=== PATIENT | male | born 1975 | race Caucasian/White ===

== ENCOUNTER 2023-05-30 12:05 | Observation (INO) | payer OTHER, SELFPAY ==
[2023-05-30] VITALS (35 sets, daily range): BP systolic 134–175; BP diastolic 88–130; PULSE 84–153; RESP 12–32; TEMP 37–37.3; O2SAT 90–99; BMI 32.9; BMI 26.7
--- NOTE | 2023-05-30 12:24 | ECG_ITS ---
The [facility] Test Date: 2023-05-30 Pat Name: JOSE WILL Department: Room: - Gender: Male Patient Support Representative: : 1975 Requested By: [id number] Order Number: [id number] Reading MD: ANN JONES Measurements Intervals [place] Rate: 109 P: 78 DE: 162 QRS: 111 QRSD: 112 T: 10 QT: 364 QTc: 428 Interpretive Statements 1120 Sinus tachycardia [address] depression 5130 Right ventricular hypertrophy 9150 abnormal ECG Electronically Signed On 05-31-2023 7:30:36 EST by ANN JONES
--- NOTE | 2023-05-30 12:24 | XR_ITS ---
The [address] [address] Patient Name: JOSE WILL MRN: [id number] date: 1975 Sex: M Assigned Patient Location: ER Current Patient Location: ER Accession/Order Number: [id number] Exam Date: 05/30/2023 12:54 Report Date: 05/30/2023 13:06 At the request of: JEM GOMEZ Procedure: XR chest 1V EXAM: XR chest 1V HISTORY: tachy COMPARISON: Chest study dated 04/10/2022 TECHNIQUE: AP view of the chest was obtained with portable technique at 12:51 PM. FINDINGS: Heart and mediastinal contours are unremarkable in appearance. No acute infiltrate or consolidations are seen. No obvious pneumothorax. Slight convexity of the dorsal spine to the right. XR/XR chest 1V IMPRESSION: No acute process seen in the chest. Electronically authenticated by: OZZIE FRANCIS Date: 05/30/2023 13:06
[2023-05-30] MEDS: ONDANSETRON PF 4 MG/2 ML VIAL IV ×2 (12:35→16:45)
[2023-05-30] MEDS: LACTATED RINGER'S SOLUTION 1,000 ML 999 ML IV (12:35)
[2023-05-30] MEDS: LORAZEPAM 2 MG/ML 1 ML VIAL 1 MG IV (12:38)
[2023-05-30 12:39] LABS: Hematocrit 51.6 % (42.0-54.0); Hemoglobin 18.7 g/dL (14.0-18.0); Mean Corpuscular HGB Conc 36.2 g/dL (29.9-35.2); Mean Corpuscular Hemoglobin 31.5 pg (25.9-34.0); Mean Corpuscular Volume 86.9 fL (80.0-94.0); Mean Platelet Volume 11.4 fL (9.5-13.5); Platelet Count 577 10^3/uL (150-450); Red Blood Count 5.94 10^6/uL (4.70-6.10); Red Cell Distribution Width 11.8 % (11.0-15.0); White Blood Count 25.8 10^3/uL (4.0-11.0)
--- NOTE | 2023-05-30 12:40 | ED_ITS ---
HPI - General Adult General Chief complaint: Weakness Stated complaint: WEAKNESS Time Seen by Provider: 05/30/23 12:23 Source: patient Mode of arrival: walk-in Limitations: no limitations History of Present Illness HPI narrative: Patient is a 48-year-old male who is presenting to the ER with multiple complaints. Patient states she has had nausea and vomiting for the past 3 days. Patient had 1 episode of diarrhea. Patient has elevated heart rate, blood pressure was elevated as well. Bilateral manual blood pressures were done, patient's blood pressure is elevated. Patient has not taken any of his medication in the last 3 days secondary to nausea and vomiting. Patient can keep some fluids in the last 3 days but not much. After HPI and physical exam was performed, I was asking patient is social history. Patient has never smoked cigarettes, patient smokes marijuana occasionally. Patient does have a history of alcohol dependence. Patient says he went on a gray Friday and Friday secondary to arguing with his girlfriend who is at bedside and upset. Patient stopped drinking completely Friday and today. I then asked the patient if he is drink excessively for the last several weeks or months and patient and his girlfriend at bedside said no. Patient has been in rehab before, patient has done AA meetings. Patient does take Xarelto, he has a history of A-fib that comes and goes. [facility] are at the [facility], patient has not had any of his medications in the past 3 days. Patient takes a rate limiting medication, lisinopril, and also a cholesterol medication. Patient's had yellowish-greenish emesis. Patient had 1 episode of black emesis, this was after taking Pepto- Bismol. Patient has no coffee-ground emesis, no significant melena. All systems are negative except as noted/marked. All systems reviewed and otherwise negative. Nurses note and vital signs reviewed and patient is not hypoxic. General: The patient appears in mild distress with increased heart rate, increased respiratory rate, appearing slightly anxious. Girlfriend at bedside.. Patient is resting uncomfortably on cart, moving around a few times trying to get comfortable position. Patient does not smell of alcohol. Patient is not toxic, lethargic, or listless Skin: Warm, dry, no pallor noted. There is no rash noted. No petechiae, purpura. Head: Normocephalic, atraumatic Eye: Normal conjunctiva, no drainage, EOMI. PERRL Ears, Nose, Mouth, and Throat: oral mucosa is moist. Nares patent. Mouth without vesicles. Cardiovascular: Tachycardic regular Rate and Rhythm, no murmur, gallop, rub Respiratory: Patient is in mild respiratory distress with intermittent hyperventilating, no accessory muscle use, lungs are clear to auscultation, no wheezing, rales or rhonchi Back: non-tender, no CVA tenderness bilaterally to percussion. No CT LS midline pain GI: No midepigastric tenderness to palpation, otherwise no tenderness to palpation, no masses appreciated. No rebound, guarding, or rigidity noted. No distention Musculoskeletal: Patient has full range of motion of all of the extremities, no motor, sensory, or focal neurological deficits Neurological: A&O x4, normal speech Psychiatric: Cooperative, admittedly mildly anxious, intermittent hyperventilating. Not suicidal homicidal. Related Data Home Medications Medication Instructions Recorded Confirmed atorvastatin 10 mg tablet 10 mg PO DAILY 05/30/23 05/30/23 fluoxetine 20 mg capsule 20 mg PO DAILY 05/30/23 05/30/23 hydroxyzine HCl 10 mg tablet 10 mg PO .EVERY 12 HOURS 05/30/23 05/30/23 lisinopril 5 mg tablet 5 mg PO DAILY 05/30/23 05/30/23 omeprazole 40 mg capsule,delayed 40 mg PO DAILY 05/30/23 05/30/23 release rivaroxaban 20 mg tablet (Xarelto) 20 mg PO DAILY 05/30/23 05/30/23 Allergies Allergy/AdvReac Type Severity Reaction Status Date / Time No Known Drug Allergies Allergy Verified 05/30/23 12:20 [facility] Medical History (Updated 05/30/23 @ 16:16 by Lamont Salcedo MD) Atrial fibrillation ?I48.91 - Unspecified atrial fibrillation (ICD-10) Social History (Updated 05/30/23 @ 19:14 by Carlie Cabrales) Smoking status: Never smoker Non-prescribed substance use: cannabis (any form) Highest level of school completed/degree received: Associate degree: academic program Exam Constitutional Vital Signs, click to edit/add: Last Vital Signs Temp 99.1 F 05/30/23 17:25 Pulse 124 H 05/30/23 17:44 Resp 18 05/30/23 17:25 BP 156/104 H 05/30/23 17:25 Pulse Ox 97 05/30/23 17:25 O2 Del Method Room Air 05/30/23 17:25 O2 Flow Rate 2 05/30/23 13:52 Course Vital Signs Vital signs: Vital Signs Pulse Rate 153 H 05/30/23 12:11 Respiratory Rate 32 H 05/30/23 12:11 Blood Pressure 160/130 H 05/30/23 12:11 Pulse Oximetry 95 05/30/23 12:11 Oxygen Delivery Method Room Air 05/30/23 12:11 Temperature 99.1 F 05/30/23 17:25 Pulse Rate 124 H 05/30/23 17:44 Respiratory Rate 18 05/30/23 17:25 Blood Pressure 156/104 H 05/30/23 17:25 Pulse Oximetry 97 05/30/23 17:25 Oxygen Delivery Method Room Air 05/30/23 17:25 Oxygen Delivery Flow Rate 2 05/30/23 13:52 Medical Decision Making MDM Narrative Medical decision making narrative: At the end of performing HPI and physical exam, it was noted that patient drink at least a case of beer a day on Friday and Friday secondary to history of alcohol dependence/abuse, fighting with his girlfriend. Patient was not suicidal or homicidal. Patient stopped drinking on Friday. Patient believes that some of his symptoms are secondary to his excessive alcohol use on Friday or Friday. Patient wants to check into AA meetings again and get back into her rehabilitation. Patient and his girlfriend both agree he has not had excessive alcohol use in the past several weeks to months, he had 1 episode of shakes or tremors many years ago, he is never had a seizure from withdrawal 1320 I was notified by Gaby CISNEROS patient's abnormal labs with lactic of 6.3, troponin 124, been atretic peptide 3272. We will be repeating an EKG and also repeating troponin at 2:00 PM. Patient's heart rate has improved into the low 100s after initial liter of IV fluids and IV Ativan. 1335 Patient has been updated on white blood cell count of 25, pH of 7.64, CK of 8080, lactic acid 6, troponin 124, BNP 3273. We are redrawing a second troponin now. [facility] been [facility] the [facility]. Patient did have nuclear medicine stress test and echocardiogram 2 years ago that showed no significant findings. Patient did have a cardiac cath back in approximately that showed no blockages. Patient does not have a automatic pinsetter adjuster. All his physicians are in the [facility]. Patient does take Xarelto, he has not had his Xarelto in 3 days. We are performing second IV, starting antibiotics prophylactically, patient is having a second troponin drawn at this time and then we will make disposition once the results of second troponin come back. 1350 we are calling the [facility] to see if they have beds available for transfer. Patient will be started on antibiotics prophylactically. [employer] Post[employer] Research Associate spoke to an [facility] individual, patient will have his case reviewed and they will call us back. 1630 patient's case was discussed with Dr Denise. Patient is troponin improved from 1 24-1 08. Patient lactic acid improved from 6.3-3.8. We are adding a lipase to patient's lab work as well, that was not ordered initially with sepsis protocol. Dr. Denise is accepting of patient's admission. Patient may have been tachycardic for several days along with the intractable nausea and vomiting. Dr Denise is aware of his binge drinking for 2 days earlier this we ek, aware that he has not had his medication for the past 3 days secondary intractable nausea or vomiting. Patient and his girlfriend at bedside think that patient's multiple electrolyte abnormalities are secondary to the alcohol intake for 2 days at the beginning of the week. Patient is thankful to be admitted to the [facility]. Patient feels significantly better after 2 L of IV fluid and has been antibiotic initiated as well. No questions at discharge, patient's blood pressure has improved, last blood pressure was 145/88, heart rate is 106, respiratory rate is significantly improved, is not hyperventilating either. 1600 [facility], we have not received any phone call returned from the [facility]. The [facility] stated that patient is back on clinical review, and they understand that he will be admitted to [facility] and agree. [facility] never called back to discuss patient's admission, patient will be admitted to [facility] with patient and agrees to. Critical care time 35 minutes exclusive from separate billable procedures that were performed. The following was considered in the determination of critical care but not limited to the level of medical decision making, intensive cardiac and/or respiratory monitoring, frequent vital sign monitoring, evaluation of laboratory studies, evaluation of radiographic studies, oxygen monitoring, and constant monitoring and speaking to family at bedside Lab Data Labs: Lab Results 05/30/23 05/30/23 05/30/23 Range/Units 12:15 12:20 12:45 WBC 25.8 H (4.0-11.0) 10^3/uL RBC 5.94 (4.70-6.10) 10^6/uL Hgb 18.7 H (14.0-18.0) g/dL Hct 51.6 (42.0-54.0) % MCV 86.9 (80.0-94.0) fL MCH 31.5 (25.9-34.0) pg MCHC 36.2 H (29.9-35.2) g/dL RDW 11.8 (11.0-15.0) % Plt Count 577 H (150-450) 10^3/uL MPV 11.4 (9.5-13.5) fL Seg Neuts % (Manual) 83.0 Band Neutrophils % 4.0 (0-5) % Lymphocytes % (Manual) 8.0 L (20.5-60.0) % Monocytes % (Manual) 5.0 (1.7-12.0) % Eosinophils % (Manual) 0.0 L (0.9-7.0) % Basophils % (Manual) 0.0 L (0.2-2.0) % Neutrophils # (Manual) 21.41 H (1.4-6.5) 10^3/uL Band Neutrophils # 1.0 H (0.0-0.3) 10^3/uL Lymphocytes # (Manual) 2.06 (1.20-3.80) 10^3/uL Monocytes # (Manual) 1.29 H (0.30-0.80) 10^3/uL Eosinophils # (Manual) 0.00 (0.00-0.70) 10^3/uL Basophils # (Manual) 0.00 (0.00-0.10) 10^3/uL PT 10.5 (9.0-11.6) sec INR 0.99 VBG pH 7.641 H (7.330-7.430) VBG pCO2 19.7 L (40.0-52.0) mmHg Sodium 130 L (136-145) mmol/L Potassium 3.9 (3.5-5.1) mmol/L Chloride 86 L (98-107) mmol/L Carbon Dioxide 21.2 (21.0-32.0) mmol/L Anion Gap 26.7 BUN 40.0 H (7.0-18.0) mg/dL Creatinine 3.88 H (0.70-1.30) mg/dL Est GFR ( Amer) 20 L (>=60) Est GFR (Non-Af Amer) 17 L (>=60) BUN/Creatinine Ratio 10.3 Glucose 248 H (74-106) mg/dL Lactate 6.3 H* (0.4-2.0) mmol/L Calcium 10.7 H (8.5-10.1) mg/dL Magnesium 1.5 L (1.8-2.4) mg/dL Total Bilirubin 2.3 H (0.2-1.0) mg/dL AST 44 H (15-37) U/L ALT 31 (16-63) U/L Alkaline Phosphatase 98 (46-116) U/L Total Creatine Kinase 880 H* (39-308) U/L Troponin I High Sens 124.7 H* (4.0-76.1) pg/mL NT-Pro-B Natriuret Pep 3272.0 H* (<=900.0) pg/mL Total Protein 9.8 H (6.4-8.2) g/dL Albumin 5.4 H (3.4-5.0) g/dL Globulin 4.4 g/dL Albumin/Globulin Ratio 1.2 Lipase (16.0-77.0) U/L Procalcitonin 0.14 (0.00-0.50) ng/mL Influenza Type A Ag Negative Influenza Type B Ag Negative 05/30/23 05/30/23 Range/Units 13:37 14:17 WBC (4.0-11.0) 10^3/uL RBC (4.70-6.10) 10^6/uL Hgb (14.0-18.0) g/dL Hct (42.0-54.0) % MCV (80.0-94.0) fL MCH (25.9-34.0) pg MCHC (29.9-35.2) g/dL RDW (11.0-15.0) % Plt Count (150-450) 10^3/uL MPV (9.5-13.5) fL Seg Neuts % (Manual) Band Neutrophils % (0-5) % Lymphocytes % (Manual) (20.5-60.0) % Monocytes % (Manual) (1.7-12.0) % Eosinophils % (Manual) (0.9-7.0) % Basophils % (Manual) (0.2-2.0) % Neutrophils # (Manual) (1.4-6.5) 10^3/uL Band Neutrophils # (0.0-0.3) 10^3/uL Lymphocytes # (Manual) (1.20-3.80) 10^3/uL Monocytes # (Manual) (0.30-0.80) 10^3/uL Eosinophils # (Manual) (0.00-0.70) 10^3/uL Basophils # (Manual) (0.00-0.10) 10^3/uL PT (9.0-11.6) sec INR VBG pH (7.330-7.430) VBG pCO2 (40.0-52.0) mmHg Sodium (136-145) mmol/L Potassium (3.5-5.1) mmol/L Chloride (98-107) mmol/L Carbon Dioxide (21.0-32.0) mmol/L Anion Gap BUN (7.0-18.0) mg/dL Creatinine (0.70-1.30) mg/dL Est GFR ( Amer) (>=60) Est GFR (Non-Af Amer) (>=60) BUN/Creatinine Ratio Glucose (74-106) mg/dL Lactate 3.8 H* 2.3 H* (0.4-2.0) mmol/L Calcium (8.5-10.1) mg/dL Magnesium (1.8-2.4) mg/dL Total Bilirubin (0.2-1.0) mg/dL AST (15-37) U/L ALT (16-63) U/L Alkaline Phosphatase (46-116) U/L Total Creatine Kinase (39-308) U/L Troponin I High Sens 108.2 H* (4.0-76.1) pg/mL NT-Pro-B Natriuret Pep (<=900.0) pg/mL Total Protein (6.4-8.2) g/dL Albumin (3.4-5.0) g/dL Globulin g/dL Albumin/Globulin Ratio Lipase 22.0 (16.0-77.0) U/L Procalcitonin (0.00-0.50) ng/mL Influenza Type A Ag Influenza Type B Ag ECG Data Attestation: I personally reviewed and interpreted this ECG as follows: (EKG interpretation. Rapid tachycardic heart rate, 144. Normal axis deviation. Artifact noted. QTc of 379. EKG reading TN interval of 148.) Interpretation: 1324 EKG #2. Sinus tachycardia at 109. Normal axis deviation. No acute ST elevation, no acute ectopy. QTc of 428. Discharge Plan Discharge Chief Complaint: Weakness Clinical Impression: Leukocytosis, Dehydration, Nausea & vomiting, Hyperventilation, Acidosis, lactic, Alcohol abuse Patient Disposition: Admitted As Inpatient Time of Disposition Decision: 16:16 Condition: Fair Discharge Date/Time: 05/30/23 16:53
[2023-05-30 12:55] LABS: PCO2 VBG 19.7 mmHg (40.0-52.0); pH VBG 7.641 (7.330-7.430)
[2023-05-30 13:06] LABS: Lymphocytes Absolute Manual 2.06 10^3/uL (1.20-3.80); Monocytes Absolute Manual 1.29 10^3/uL (0.30-0.80); Segmented Neut Absolute Manual 21.41 10^3/uL (1.4-6.5)
[2023-05-30 13:10] LABS: INR 0.99; Prothrombin Time 10.5 sec (9.0-11.6)
[2023-05-30 13:17] LABS: Alanine Aminotransferase 31 U/L (16-63); Albumin Globulin Ratio 1.2; Albumin Level 5.4 g/dL (3.4-5.0); Alkaline Phosphatase 98 U/L (46-116); Anion Gap 26.7; Aspartate Amino Transferase 44 U/L (15-37); BUN Creatinine Ratio 10.3; Bilirubin Total 2.3 mg/dL (0.2-1.0); Calcium 10.7 mg/dL (8.5-10.1); Carbon Dioxide 21.2 mmol/L (21.0-32.0); Chloride 86 mmol/L (98-107); Estimated GFR (African America 20 (>=60); Estimated GFR (Non-African Ame 17 (>=60); Globulin 4.4 g/dL; Glucose 248 mg/dL (74-106); Potassium 3.9 mmol/L (3.5-5.1); Sodium 130 mmol/L (136-145); Total Protein 9.8 g/dL (6.4-8.2)
[2023-05-30 13:21] LABS: Lactate/Lactic Acid 6.3 mmol/L (0.4-2.0); Troponin I High Sensitivity 124.7 pg/mL (4.0-76.1)
--- NOTE | 2023-05-30 13:21 | ECG_ITS ---
The [facility] Test Date: 2023-05-30 Pat Name: JOSE WILL Department: Room: - Gender: Male Classroom Monitor: : 1975 Requested By: [id number] Order Number: [id number] Reading MD: ANN JONES Measurements Intervals [place] Rate: 144 P: 247 MI: 148 QRS: 84 QRSD: 100 T: 77 QT: 296 QTc: 379 Interpretive Statements 1220 Rapid atrial rhythm [address] depression [address] & [place] abnormality 9150 abnormal ECG Electronically Signed On 05-31-2023 7:29:24 EST by ANN JONES
[2023-05-30 13:24] LABS: PROCALCITONIN 0.14 ng/mL (0.00-0.50)
[2023-05-30 13:27] LABS: Creatine Kinase 880 U/L (39-308); Magnesium 1.5 mg/dL (1.8-2.4)
[2023-05-30 13:39] LABS: Influenza Virus A Antigen Negative; Influenza Virus B Antigen Negative; Internal Control Within Normal Limits
[2023-05-30] MEDS: ASPIRIN 81 MG TAB.CHEW 162 MG PO (13:40)
[2023-05-30] MEDS: MULTIVIT INFUSN,ADULT 4,VIT K 10 ML, FOLIC ACID 1 MG, THIAMINE HCL 100 MG in DEXTROSE 5... 250 ML IV (13:47)
[2023-05-30] MEDS: LACTATED RINGER'S SOLUTION 1,000 ML 1000 ML IV ×2 (13:47→15:51)
[2023-05-30] MEDS: VANCOMYCIN HCL 1,750 MG in 0.9 % SODIUM CHLORIDE 500 ML 250 MG IV (14:47)
[2023-05-30 15:11] LABS: Lactate/Lactic Acid 3.8 mmol/L (0.4-2.0)
[2023-05-30 15:12] LABS: Troponin I High Sensitivity 108.2 pg/mL (4.0-76.1)
[2023-05-30 16:54] LABS: Lactate/Lactic Acid 2.3 mmol/L (0.4-2.0)
--- NOTE | 2023-05-30 17:21 | CT_ITS ---
The [address] [address] Patient Name: JOSE WILL MRN: [id number] date: 1975 Sex: M Assigned Patient Location: MS Current Patient Location: MS Accession/Order Number: [id number] Exam Date: 05/30/2023 17:57 Report Date: 05/30/2023 19:11 At the request of: FABY VALERO Procedure: CT abdomen pelvis wo con EXAM: CT abdomen pelvis wo con HISTORY: Emesis, diarrhea, elevated lactate COMPARISON: None. TECHNIQUE: Axial CT imaging was performed through the abdomen and pelvis without intravenous contrast. Multiplanar reformats were performed. Dose reduction techniques were achieved by using automated exposure control and/or adjustment of mA and/or kV according to patient size and/or use of iterative reconstruction technique. FINDINGS: Lung bases: Lung bases are clear. No pleural effusion. GI upper: Small hiatal hernia. Liver: Normal size and contour. Gallbladder: No significant abnormality. No cholelithiasis. Biliary system: No intra or extrahepatic biliary ductal dilatation. Spleen: Normal size. Pancreas: Unremarkable. Adrenal glands: Normal adrenal glands. Kidneys/ureters: Normal contours. No hydronephrosis. No nephrolithiasis or ureterolithiasis. Vessels: No aneurysm. Lymph Nodes: No lymphadenopathy. Small bowel: No wall thickening or dilatation. Colon: No wall thickening or dilatation. Appendix: Appendix is identified with normal appearance. Peritoneal cavity: No free fluid or pneumoperitoneum. Lower : Unremarkable. Bones: No acute bony abnormality. Soft tissues: No acute finding. Additional findings: None. CT/CT abdomen pelvis wo con IMPRESSION: Unremarkable noncontrast CT of the abdomen and pelvis. No acute abnormality. Electronically authenticated by: NAUN BAILEY Date: 05/30/2023 19:11
[2023-05-30] MEDS: PANTOPRAZOLE SODIUM 40 MG VIAL IV (18:17)
[2023-05-30] MEDS: PIPERACILLIN SODIUM/TAZOBACTAM 4.5 GM in 0.9 % SODIUM CHLORIDE 50 ML IV (18:17)
[2023-05-30] MEDS: LACTATED RINGER'S SOLUTION 1,000 ML 125 ML IV (18:17)
[2023-05-30] MEDS: LORAZEPAM 1 MG TABLET PO (18:17)
[2023-05-30] MEDS: ATORVASTATIN CALCIUM 10 MG TABLET PO (21:55)
[2023-05-31] VITALS (11 sets, daily range): BP systolic 137–159; BP diastolic 75–95; PULSE 87–111; RESP 18; TEMP 36.6–37; O2SAT 95–101
[2023-05-31] MEDS: LACTATED RINGER'S SOLUTION 1,000 ML 125 ML IV (02:37)
[2023-05-31 05:37] LABS: Bilirubin Urine NEGATIVE (NEGATIVE); Blood Urine NEGATIVE (NEGATIVE); Clarity Urine CLEAR (CLEAR); Color Urine LT. YELLOW (YELLOW); Glucose Urine UA NEGATIVE (NEGATIVE); Ketones Urine NEGATIVE (NEGATIVE); Leukocyte Esterase Urine NEGATIVE (NEGATIVE); Nitrite Urine NEGATIVE (NEGATIVE); Protein Urine NEGATIVE (NEG/TRACE); Specific Gravity Urine 1.015 (1.005-1.025); Urobilinogen Urine 0.2 EU/dL (0.2-1.0); pH Urine 6.5 (5.0-9.0)
[2023-05-31 05:39] LABS: Basophils Absolute Auto 0.1 10^3/uL (0.0-0.1); Basophils Percent Auto 0.5 % (0.2-2.0); Eosinophils Absolute Auto 0.1 10^3/uL (0.0-0.7); Eosinophils Percent Auto 0.5 % (0.9-7.0); Hematocrit 45.1 % (42.0-54.0); Hemoglobin 15.3 g/dL (14.0-18.0); Immature Granulocytes Abs Auto 0.13 10^3/uL (0.00-0.03); Immature Granulocytes Pct Auto 0.8 % (0.0-0.5); Lymphocytes Absolute Auto 1.4 10^3/uL (1.2-3.8); Lymphocytes Percent Auto 8.7 % (20.5-60.0); Mean Corpuscular HGB Conc 33.9 g/dL (29.9-35.2); Mean Corpuscular Hemoglobin 31.7 pg (25.9-34.0); Mean Corpuscular Volume 93.4 fL (80.0-94.0); Mean Platelet Volume 11.3 fL (9.5-13.5); Monocytes Absolute Auto 1.2 10^3/uL (0.3-0.8); Monocytes Percent Auto 7.5 % (1.7-12.0); Neutrophils Absolute Auto 12.7 10^3/uL (1.4-6.5); Platelet Count 285 10^3/uL (150-450); Red Blood Count 4.83 10^6/uL (4.70-6.10); White Blood Count 15.4 10^3/uL (4.0-11.0)
[2023-05-31 05:43] LABS: Urine Microscopic Indicated NO
[2023-05-31] MEDS: PANTOPRAZOLE SODIUM 40 MG VIAL IV (05:44)
[2023-05-31 06:01] LABS: Alanine Aminotransferase 32 U/L (16-63); Albumin Globulin Ratio 1.1; Albumin Level 3.7 g/dL (3.4-5.0); Alkaline Phosphatase 64 U/L (46-116); Anion Gap 11.2; Aspartate Amino Transferase 48 U/L (15-37); Bilirubin Total 1.4 mg/dL (0.2-1.0); Calcium 8.5 mg/dL (8.5-10.1); Carbon Dioxide 30.2 mmol/L (21.0-32.0); Chloride 96 mmol/L (98-107); Estimated GFR (African America >60 (>=60); Estimated GFR (Non-African Ame 51 (>=60); Globulin 3.3 g/dL; Glucose 108 mg/dL (74-106); Potassium 3.4 mmol/L (3.5-5.1); Sodium 134 mmol/L (136-145)
[2023-05-31 06:16] LABS: Creatine Kinase 654 U/L (39-308)
[2023-05-31] MEDS: LISINOPRIL 5 MG TABLET PO (09:26)
[2023-05-31] MEDS: FLUOXETINE HCL 20 MG CAPSULE PO (09:26)
[2023-05-31] MEDS: ONDANSETRON PF 4 MG/2 ML VIAL IV (09:50)
[2023-05-31] MEDS: CALCIUM CARBONATE 500 MG (200MG ELEMENTAL) TAB CHEW PO (09:50)
[2023-05-31 10:42] LABS: SARS-CoV-2 Ag NEGATIVE (NEGATIVE)
[2023-05-31] MEDS: HYDROXYZINE HCL 10 MG TABLET PO (10:56)
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
--- OUTSIDE RECORDS SUMMARY | 2023-06-02 09:01 | XMS_ITS | CCD ---
Author Name Unknown Address [address] [place] [address] [place] [address] Organization [facility] Results Test Name Value Interpretation Reference Range Facility Coding Summaryon 05-01-2021 Coding Summary HTMLBase 64 TfbluknwGTl9zVx+PGhlYW Q+FM4IZQQqR72qpLSolG4M P8vDXL9ZMFPIEEJHEW3DVA 5yrII3JVqdX8WtwsLw OoivlYKfHZ13IBv3HNV8tR jnIBvldX1cmACmG6i0RfYt RN62eA15VCxbPPToYuR2Bk ZpbjsgbWFy I6xeDfPjxKGlCyb+PHRhYm xlIHdpZHRoPScxMDAlJyBz kOsgRI7gDr9xARXmLYLvuK xhcHNlOiBj v7taUBMpEOqpOD4udKkxQ1 RjdZI9MIUvs0d2Uk52cXJ+ GHIrCRX8cBruDRkql771Ct Ihn1qiTGT7 wLFlYWwkXAF6M56bt7J2QP DzLUTeFMR9tYC5bL7tbLcx rjjwA5TkxZUfWtF1FCN3eA VbqH1diBqe fmxsxN2hNwo+T40VER5OII MMCZ3RHmw0B1ClWqctlQK+ YX22WXSsJY47iQYamFOxq5 gklWz0LvMm LLIlINK9pUuxMEris5TzVY LpK05azOGdo2G7AJHngHis lKEvQkHbiJF3oA7fURaxrq xef4oaavnr Uuldn7abct14tZ02C86ePR kpGUGfNPA7ZLTtJSQnyAqa kv4pqF8sXg9+QIcjm1xrv8 hhpFx3KnYv RRIdxeNscUdyZOF1x6QjRp 19G9VggRefp8JmKyz2ks60 cINuk7O5bSR6GOsrJZBgsM 4eIQvmGrB2 RHJjLlGrmC49kRGeNSpiFz 5jvBiwnWtwTG3aPYFcgnkz UTCcmU9rSJXppEDoeGumIP 4wNTBpbjtm o276KqOsZPU2ILKbvEDpZ3 VrjP1jNrUxOJLcDCNlZ9Qb fVRqTEjeJ016CUbaGpE2QP LhmoRoP1Cl RFNcaSolLwP5o6I1Bi0Sg5 WrhoqvPGI4ABluTAGyYgF3 PfNrIzN1N4MqPnm9GNMkrK okLH0zV8Uk RBJudbulujqbuWE7CPIaXN YebS00iULyWLjvWj7to4B4 i086ZPCzXQXtvQ36Rq1neV ogMTBwdCBU aX6xeiqat1wzdfggXrGeCI WhMRc1DJa7THEokRupWzYx PEZ5KqV3JNW8mIIajW5vcP itncehgJ3q Oyc+C78jgN3zDAU8HLV6mg sdWLNbgpHuUV71OA08T8Tt PjwvdGFibGU+PGRpdiBzdH btIQ8nVoXg n6fkd8RsETnrC3QdUYGlXC uhEbz9JYJkTWR2aYO0pM5e CEQoRHgpm0V8eIU8O8Xhag Zxii6mb2wc WGJkQFzhK31etHYsg1C1QQ OvkSI2HCRcqVghKzMbkS98 Oyc+CYBofYxeh0ZlShfbc8 zlr1lilMu0 WmUyZSJaduMecGlxOHE5e3 FcWd52K92qIRavJOXlWZEa SHXbNPRybNxrhg6enQ0yPp 8+PGNvbCB3 iVJ2rG5tAMWpCvH8UOdyH7 80DpAwlNFmPgaiv9xbd7et jDh4JsCxDXUbwmFwpUpwXT R1p4MdEx88 F04eBPvgKEVvLGAyUTXfUQ BaiJdnpt9heX8iXs5+PC9j q7mnow87dC51eLG+PHRkIH L0hXyyFVjv CBCqoJ9xZNttEgJ7OSJuDq IwaN58aZBuJVshNy7nzJhm lMpyZZ6pJKDhfciiu866Mq Scq9zxKPJa qJPxYWkwSJT1N77oe1F9MQ RgFDDwZDX4fLM9fK6unJdz bjogbGVmdDsgdmVydGljYW dsDHcgA907 IHRvcDsnPlBhdGllbnQgTm PeEVo3L2IcGwt4QBArpTvh NT8coAKxZFqkVj9vjXkztP zwQL3aOCSl skopa226ErUsk0pvTZEavP BqFMqoIIO8J52qy1H7YATk BZCcGFV9zSU3jT9ewMwnjq ogbGVmdDsg xtXheTebPClsBDpnS522QV RvcDsnPkJpcnRoIERhdGU6 DM11LS91tSXjk8N3aHE5Y5 BhZGRpbmct armmyZS3CSSrCMJrbQ08Ai 3byOyuCe8qLDLmDPZ7PYAm dXByA0TrzU0qOxBgGOGwZE CjX2AjqGSw MFyoE628VGsyMhY1QACein CiP0AgYGKqeHivDiM9l8C0 Yj7JC0F6KA91ZU85mXTju3 X5dTX7J4Lu CYOqppmrbbeuiGG0LIZoYH IvbY94Uu9olNnfVi1vEUUs BHI6FNRsmYYoP9RmwI2hCa AjMDAwMDAw E9ChgRLbLTdiN090OYleHz Y0VQFsxdYgB4MgORCzvPni HoR8i5I8Oa8MBEf0FC34BJ 92gFGvw9J2 eXL6R6KqBTZmqbpwxldsqB Z6HATqQKExwZ34Sg6itIia Iv9cPJSsTCM2HLTnsTIyR3 IzmL1dJuQy PLYxSLFeR5WoeDNlWMbmU7 28RTrfYbE3YHSbubBvY2Wb OINhrIwaUwM5e8C4Am4CZZ RbPH84LLM6 cQU1KC23EW68X1DtDycxdH FibGU+PHRhYmxlIHdpZHRo UIlyGKIgHiFgcPdiBT0hDn 9yZGVyLWNv kAuwkNZoSfXyk6lbODIeMC djDH3xqMpqU9EdnGU9LHCf m2a2Jq03Q87oN9PdeCA+PG AuqPE3sXF0 aY6lHbBjRnS9ZQibR190Sb WxaQWoOmqwv2zne3uqfIt1 MtL6TLFgygRswJwdDDD0a6 IvUq18A82m IHdpZHRoPSIxNSUiIHZhbG jvxb8aoS9nQp6+PGNvbCB3 fOY4aB0lCyScGqR0EBdrU8 49InRvcCIv Uqhoq9igc9elwSm1UdIlHO IviuSktYshECA0l7VnQe69 U2IzhVsza5BtQjc0cd34eF Cou0C1fDL0 C7BpBPUtpeasuLXudUgdCN 8vOVKmipkfAAFcyZ6mHTGx M6q8TiSwOsR9ILmtQ0Yljn M1CCJibNZp DKbxIMY2R39nk3G1JCSrHE IoXWE9mXC7eQ7qsHsezcgf bGVmdDsgdmVydGljYWwtYW alZ429YSEn pRfkRKGddP5vSSFzkBRpoR lsQN4bKNSejxonEusFTNfE LCBLVVJUSVMgTDwvdGQ+PH KtPMN7aGuq UIsbVRXbrH2pZQZfM9q3Cp IjGxL0QFikV1FkAJSnftgi Wh79kT3tHuLmNrG9TZmzC5 TuteD8TJTh jVMiXBsqNTX8T16re8J4ZS OqCKAsSRS9dHJ0aM0soSkz bjogbGVmdDsgdmVydGljYW utLQnyD831 BAVvaNhjHzR5KhF5VsM5Mv L3F8LzKkb6RYRbpSrrCN2t wOPqSZsqDd5kiClfxJssSK 4wNTBpbjtw ONKkoL7dLAEqlNJjqNwyKY 0mKZRngidnr721FyNbJBF3 TGWwaDVcZ4NjjE0nMyXcJD TbQRUwS7Mz tZSdEAsmW699AUljSoU1FA BvgaUrY5BhENVdzVxxDuP9 a9V6Ne78EpNDGSZnakncjR Q+PHRkIHN0 zNhhIGuzLFGdcX9sSDNlB2 q2XhVzJeX7JHjnO4SjDVJv yfuoFd47lZ3eHhQgPuN3PG agN0OrjbO2 VWKbcPGuFPpuVBU1S71lv2 N4PPAfYPLwFEL8vMQ1zS7v bGlnbjogbGVmdDsgdmVydG ljYWwtYWxp G635WHDzlCgsSt8ZYPB2L5 NyMgg5HGCetJmuCF5dnJQc TGioKr7nuJuaeWndHR4vEL BpbjtwYWRk mD9hCTEbkHHseXcqDS8zSC Xhcjeso106IqPzPSO1LVAm yZXzH8GeoU6sSyWsTFYeYH ZkU1PtrXKr TVbgC314GLpuGjO2ZEEjut TlX8ZaOMIbbTklRpH2g3Y3 Dp4JQoBzaiRosOwkqysysE Q+KW77ov67 C2WlTywnBog6STReUIZ6jR N2rI4vGGTxKNtrq1Y3qZL2 C8MvtbNswg5oe9nmUXMfNO gsK62jaGLe u8D3GWBwnCE1MOCugIvkSi InhL79Vfm+UWAycDyms7Uh Lsmxj5pwn1uwoBj9QsCoSF IgdmFsaWdu ONV1k4UiGn20S20uWQmjDH UeJMBiJTYbBJKcyJviad6d uU7nPj6+TWOszJG3uZD6aM 5cJpJzDcX8 IWyrE218KgWcdGRtWdnub3 bgf6jjcVr6AjJkFSHuutGr vKieEZP5a6NaYk20I7UjuV vvw5TmPqc4 xz71qDYcg8I2vVR0O8VnZC FecywhwDUfkWvhBR8uRHLn zhrjTNQroG5eDOZsV9w6Cc OtRcK8ONkn W4TsuoZ9KXXvcZDrRIOkjJ STjT1lhuyzf9yizxjkBqTt CXJiYIx4VVt8YIFkeTynQt BeSKD3ByG2 JXS0jTLrqZ0bxKleuqarsO 9wOyc+BIs0p1mzmEDaCG0g uXN9KY66WG87lBVlf0G1lX S9O0FrBWKq pmuxcznprOK0KGOjDNRjxU 24Zb2rrLetFg8eYNCfTZP8 SKZujYFpA0SllR8rCrVsJF GzBXNwR1Jv hOOrGAqyD788YBjjAxB4FN QfocLcP5BmKYHxwPkuJyE8 k6X5Ie0AZP92HR48BY94xR Obm6L7jDU4 F8SfJTQybdbinzpsiLY3CR MoBKJtzC81Qp3jmTtqKo9s FFBvRKU9GFRdeJTtI1GmaJ 9yOiAjMDAw ETIyT7PoiCOlGYsqC461QE ufLfO3IVDdqcNdD5WtXIXz oFruJbP3z4O6Ae7IDv16OR 67TD44rLOb p9F0uLJ0R3LuRYEdvkqlfn thpKU8EYVnYWHwoG23Sn3w aSpvJx9qKLJyEZK8KRImuX OoK3CxcD9f SyOrMAZuJVCrC8OzzGUpKE tfL461GLlxPxA5QADhtmOf O1StRHOeaMrmPlX2g3G1Vn 1TLVplsvl4 G1LuHwhvfOF+KO91DHHaYI 80bZKehCZkd9uhnKz9MwVb XTEjUIH1rYzqRTdix4LaOA MmP66ztAOh c2U (more content not included)... [facility] Coding Summaryon 04-27-2021 Coding Summary HTMLBase 64 NyskdomjWGo5nCs+PGhlYW Q+UW7KDSZmH24myXXpzG7S Z4lNAG3CRCCGXTQQSX1VWN 5spEJ0JHpcB8YhxtYa DkcrpRPnMO47LTg0ANL1dP znNIcyvL2jbIWoG8m1IwXq HK83aF12VYgjAFTmLfT3Ry ZpbjsgbWFy P4tmEnAfpXNpNxp+PHRhYm xlIHdpZHRoPScxMDAlJyBz zBnuQP3cUy0mJKXsNTIhpM xhcHNlOiBj g7lrTCGzWEdzLX3kpCqhX9 AynAN0OCKqq1h1As18uZP+ BZYqAHS3bUyuUZsvy502Rd Iyv2nfPJJ6 eNIlKBkcNRD8V27fb8J9MB IhWRHkBGZ0sRH5fN2reMcd ulcbN9EiaXPrXxX2BYM5mX YdwZ9ypSry sqgpaO7sAyn+A44ACS1OSD WEXN7VWdk2U3EbAlyyvYM+ GW54ONNoYS33rNZfaOLmk6 lctDa3JwEe DGRuHMJ3xNrmUEcun1KmYP GdM42dzXEkk6F4IOSbaNub iBYgDdSmrWK5gV5vGYokoi tei0zdfdab Ytnbx9hqst91vK64D51qBM jhDCJlNRX6NVRxPQWzkDhd vn6bgB0hJf0+EQzgi0orz3 wecMr9ZeIp KIBevgWbxKlfLHL7w5NeQa 37I6IvoItya6McJrw3im42 eZQcy3H5rWM1YUqbGHYbhW 0mAKowTiK9 USCqQtViyC37jYLqSQvuFw 1tsOmhoAbcMN6gZELxnavd OCRnhD9gFAHohSFduSnvYI 4wNTBpbjtm p408NhUgPMA0VYBwpCAsA8 BzcK7qRfZzBNCjMNSmX9Pf cEEcRNjjP129BKgdNxB4LR DwpxAhF9Tj IPAtlTsuNeY8a7V6Sz7Jk1 YlbbvnYCY0LTsvMUSpNpW0 YuIfPpR7Y0MvGhb2GHEpkQ cbMI2pP7Ay THTxzxrzkqhdfJZ5JJIkDP HlrC44lYVfZMamEx5dk5O6 n869LHOoHCVjjM11Ur4neL ogMTBwdCBU fW3cjuavb2triwfwTdNvQX KkVRr0LXz7RNGfoHamNmDj GZI0XzB0LBU7dRDygW1vgF kggdvjvZ1y Oyc+R75krL2wZDM0CMG7rn fsDGAmycUjYS22GN69H4Eb PjwvdGFibGU+PGRpdiBzdH wyXW9aWuUn s3zwa7RmUGpjY3NcGENsDJ rdQwx5XVIsFYU7xTJ4rL0i KJQuSYdfo3B2dQB3T3Frls Xcke3ro4ny BXUlTBvlU19kgASto6P6LW KbfDB3RVFhaSgiZdNtqM55 Oyc+IQWwuStnc1LgIbhqu2 psj7floGp1 WoUpFTOtodSzqUmrNQY0e3 TuEo84C01xXXnmBNTbXAEn AILaTADpxKefzw7brF7oSy 8+PGNvbCB3 hPG8dA6eHBLbDsF1VPttC4 71EiDrcULyZmxli7cwa6vn tWs2FbAkJFAvmdYdkZpyYL L6l0RpQe07 D46bLDsfVIZgFJLvVWYkDT QztBgmya1oaW5yEe6+PC9j z0tzzo93gS41uVF+PHRkIH D7gTjfQHuv XJXhrO7ySVnkNvP8HLMhLd OduR23fIZgXYyxUc5jvXtv lYbpGM9zWZKsmrudh411Cl Qyd6pyPRPb vYRrUJefAAC3C48ub2I4VI JrAKApIMS3qFX4uM9kdRwl bjogbGVmdDsgdmVydGljYW onBGjzV978 IHRvcDsnPlBhdGllbnQgTm PtPEv8H8NjZeq2QKKynRaw VT6vnWUhRQeaZv0adCqfpR rkGJ2xJMLm gaxre270HoZck6giMTDthE WqNCoaJHK6I06wp3L1UYYb SMRvLGL8tNR2xY6xcXgqag ogbGVmdDsg epNkbHvjHPdfRKifU773JD RvcDsnPkJpcnRoIERhdGU6 LX53LQ41sCZsu9O8rQE2H9 BhZGRpbmct mcwwkTK6GRSdOSRlmN10Ss 6uiIirIl2tMWHqGOP8DLFe pYUzS7RfeV3gDkQgTUVlBQ HsX3RoyZVv XOpjO698LSmlMbQ6JIWoin UyE0UqQTXngCwwCpQ6h1J2 Ft3DG9K0YW32AQ51cXAhp3 B0xDR8G5Yx WOSxcnviemnnzPM7PLWeOV DmdB41Qt0wlBebMi4kGALb FKN3MOJazFFhD2HdtU1tTc AjMDAwMDAw O5JcwKQiDEtyY967FStlXp F5XCZoraYhO2YhKEIyzOne QeS7y7O6Fi7ZOWo1BO01CT 90gZRmv4R3 lRQ3Q0ReOCLohysjfnmpwO N1XPEhVNZvdB74Mo9jmGjs Zh3nXKPeSNS0TKTyyRAlQ1 SkrZ7uIoKw JLBoJVMvW8ZixPDcFMglO3 12RQaiAiZ7TBAeyjMvV4Fy VREunQwbKbV9a5S2Bb3AYI IuED22ZWN9 qEE7NN25FH72A2UoImldgK FibGU+PHRhYmxlIHdpZHRo UPphXFDgRrZbnIgyXM6aGx 9yZGVyLWNv eUnlbRScZsXks1mrQOEwEB cdTV1nnFciB5IdvES3MJYm d4l5Iw07N15pL6KhgOM+PG FynYK1qZL4 zX5nJtEgMsI6PPfgR277Ys GsmXJtNuuov7efd0uryEm6 RiV7IVZkczIvuXvvSPU8p2 HhDr22N84r IHdpZHRoPSIxNSUiIHZhbG wint0itF0mLm0+PGNvbCB3 gCN7vH6uFsXwYjB1ZNtpN5 49InRvcCIv Qzgka0gmg7xneOj6YuMrQG PfvdVjpPlxRRJ9w1FqWd34 S0SpxIhdf1SjVoy0dv95oY Vio9G4nZV5 H7SsORHffdsnvITouXjqVQ 1vQLTriffhZFQecQ0kNNZj R5i8WtNtBbF2KNnzO2Vigs S7MHIwoGVa BCsaHHR3N42yl2S6TYEiBH JxASW8bXX5iS8pnJozolri bGVmdDsgdmVydGljYWwtYW haS119PRNn nEuqQIBxhA4vMSNraYFomQ yaWK5xOTBtbgotPyeUIXsM LCBLVVJUSVMgTDwvdGQ+PH DdBYC8oDap OLzpZJAovG6rIIGvY0j3Tt HjLxY2KIceF5AdLRVrsmyo Cg45cZ0kQnDgIlT1EZcvH5 ZecqG6IKKb wWUmPWjrJZW6T53xm7P8OH CqFWBgSJI2xUW8uK0zvXyr bjogbGVmdDsgdmVydGljYW plUZpvH823 JSGyqLmaPpS5HpA9XnQ0Zj K6D5VuGqc1OYDdzSqlUR1x xXZfTDcqYf5llNurtQrvSW 4wNTBpbjtw JGRpqW4xAZZuoBGfdUvnNW 5qMMXrkwkwi526MbXiTUE6 GXMyrDJeF8QcxI8sLlJnQT LwDCKjN1Xr gTDrQYrjE008UNemTxI5ON QjyrIiE7MkVKJpuQceYsU7 x6D9Hv15IvIHVBTxbyjxvU Q+PHRkIHN0 eJiwKOcdMWDxdV9zTZVjA1 e0MwUnUzL5CMypZ5IoTKIy wdbmWr48kQ6eXeYlVcD2GZ ygQ5LpeyC9 SHEbgNVzINwfWFT1K74tc9 U0NCOvZSVvPLP7hXQ9pH8f bGlnbjogbGVmdDsgdmVydG ljYWwtYWxp M012OIBueBopZr0KGHM5A6 IyJgl9HOVwyJzkXR3niGJv OCujOj6alOwxyWgoFD9cKW BpbjtwYWRk yL1aFCKujZXquJujKJ8iUH Dwzwpfk477SqLiGUC5ZWPw mUTuA0FgkE8vXdHpFSQfWY OzV0EfaELz UEhfS176YVrnFxD4NXJwwe ZiR8DnZUZqfRjwFrH1m5J1 My4HRRmxfAI+KS06ca19X8 RhYmxlPjx0 KICmOIB3pGP0rM3sZEBcXR cbx2D1sVY5Y7IjviWcsh4w p9lnPWNaLUfgO17orDCsi1 M7HZXibNJ2 XVEwzEjyPqJrrQ52Hoi+PG TxdKpop4EfAdhmf3qht5wa oKu6HlLrEECdjpMunDiuOO G8l2PaBt11 J45bGRywETJpJVCxPJMpGM SezTdpdt4vcC3vGs0+PGNv eFI7pBA5cX7tEtIcPqR3GS oyP433LsHu yQYqXpkdy4mye6geaOi3Rq DfXNXojaKqwBjqBFE9g8Nu Iz13W4LejDupt6ZxRzc3tn 24oFPso1A1 zXH8S8LkXBHrvzepbFPtbS zoRW6yUIZhsrpkLNJnpF0x OHJuE0g7JkRkWgL5FVouU5 VeoxV4KYOv jPCeEPCkuKYRmG3qadzjy8 kpyrkuDcTbBBEvDVh7CQb6 NJIbxQdiLfXqBKT5ObQ4UY Z3sDYrlG4o fWjxvuaqoT7aVek+UGh5c2 xvvGTmAU0oqRQ1QS43BN25 mGKrt1I9iCM8T5HtVSTxfe ctcmlnaHQ6 CSQdJEMymE32Oe4zhDwoDb 9hXBGdDIJ6FKHroVKmX9Cz sH7zXdNjHPIrZKRcU3WxrB OmMRgpI731 SVrgPyE1AXFwqkKsK7YhGF SlhByhOfY6j1C9Ub3GPC88 VL72BG62yPUui8Y3qOX5H1 BhZGRpbmct ooksyIR9LMUfVULqoL68Pl 6awRdxXh2qUVIxFWB0TFVn zMAbY2BqaB7pUgKyWBCoGG PaM6XixCOu ADjgB132YFmqUuU6VMIcmj IoW8NoEDFizPvuXpP8z4D2 Ec6WEa87TO48ZG97qIRrm3 B1wXH6F3Jd HEUcfnkyswcbnQF4PWWiWF WizJ99Dc6sjQcjPy1fCOQq WDF0MKBfvWMnQ9DkgT2wHi AjMDAwMDAw W4IdxFVaPDmzF064ORlrPo S2FJIacfDuV4MkMOVcjDth KcZ5e7S6Qa5QKNqoaoa2W1 RkPjwvdHI+ SI69MGIhCW85yKLcwMQmq0 ougLj4ByWdBKRlUBY1cIos QZnxw4UtXLAsG07gzVUqj7 V2RCZerYzg cHN (more content not included)... [facility] Telemetry Stripson Telemetry Strips [id number] 10 [id number]#1.0 0OTGTIFF [facility] .Auto Diff 1on 04-25-2021 Auto Daniels % 5 % Normal 04-25 [facility] Comment on above: Performed By: #### 7 [id number], [id number], [id number], [id number], [id number], [id number], [id number] ####[facility] (DEFAULT)[address] [place] [address] Baso Abs# 0.0 x10 Normal 0.0-0.2 [facility] Comment on above: Performed By: #### 7 [id number], [id number], [id number], [id number], [id number], [id number], [id number] ####[facility] (DEFAULT)[address] [place] [address] Basophils/100 WBC (Bld) 0.2 % Normal 0.2-2.0 [facility] Comment on above: Performed By: #### 7 [id number], [id number], [id number], [id number], [id number], [id number], [id number] ####[facility] (DEFAULT)[address] [place] [address] Eos Abs# 0.0 x10 Normal 0.0-0.4 [facility] Comment on above: Performed By: #### 7 [id number], [id number], [id number], [id number], [id number], [id number], [id number] ####[facility] (DEFAULT)[address] [place] [address]999 Eosinophils/100 WBC (Bld) 0.2 % Low 0.9-4.0 [facility] Comment on above: Performed By: #### 7 [id number], [id number], [id number], [id number], [id number], [id number], [id number] ####[facility] (DEFAULT)[address] [place] [address]396 Lymph Abs# 0.6 x10 Low 1.3-2.9 [facility] Comment on above: Performed By: #### 7 [id number], [id number], [id number], [id number], [id number], [id number], [id number] ####[facility] (DEFAULT)[address] [place] [address]10 Lymphocytes/100 WBC (Bld) 13 % Low 14-48 [facility] Comment on above: Performed By: #### 7 [id number], [id number], [id number], [id number], [id number], [id number], [id number] ####[facility] (DEFAULT)[address] [place] [address] Daniels Abs# 0.2 x10 Normal 0.0-0.8 [facility] Comment on above: Performed By: #### 7 [id number], [id number], [id number], [id number], [id number], [id number], [id number] ####[facility] (DEFAULT)[address] [place] [address] Neut Abs# 3.6 x10 Normal 1.5-9.2 [facility] Comment on above: Performed By: #### 7 [id number], [id number], [id number], 67167866, 0008164526, 8393498236, 5221304 ####[facility] (DEFAULT)[address] [place] [address] Neutrophils/100 WBC (Bld) 82 % Normal 44-88 [facility] Comment on above: Performed By: #### 7 817137, 2512531047, 3023538803, 13082029, 8048925550, 4340577992, 0306598 ####[facility] (DEFAULT)[address] [place] [address] CBC w/ Auto Diffon 2 Erythrocyte distribution width (RBC) [Ratio] 13.1 % Normal 11.5-15.0 [facility] Comment on above: Performed By: #### 7 476274, 2835933451, 2184603275, 89039629, 7595737946, 3897759460, 8988763 ####[facility] (DEFAULT)[address] [place] [address] Hematocrit (Bld) [Volume fraction] 46.9 % Normal 34.8-51.9 [facility] Comment on above: Performed By: #### 7 733407, 1453595086, 6348355577, 59348991, 6461232236, 8606153702, 8855496 ####[facility] (DEFAULT)[address] [place] [address] Hemoglobin (Bld) [Mass/Vol] 15.7 g/dL Normal 11.8-17.7 [facility] Comment on above: Performed By: #### 7 950354, 2389449636, 3478240964, 11068368, 0005397580, 1984957335, 4267542 ####[facility] (DEFAULT)[address] [place] [address] Instr WBC 4.4 x10 Invalid Interpretation Code [facility] Comment on above: Performed By: #### 7 513783, 3710614218, 0404407727, 42282982, 1869898303, 7411257948, 8186090 ####[facility] (DEFAULT)[address] [place] [address] Man Diff? Auto Normal [facility] Comment on above: Performed By: #### 7 978255, 9688762280, 0368934854, 19796313, 9228080682, 0050455101, 6474019 ####[facility] (DEFAULT)[address] [place] [address] 63951 MCH (RBC) [Entitic mass] 30 pg Normal 24-34 [facility] Comment on above: Performed By: #### 7 608664, 1639264789, 3793412525, 52269982, 0888091087, 9839605845, 9681019 ####[facility] (DEFAULT)[address] [place] [address] 07318 MCHC (RBC) [Mass/Vol] 34 g/dL Normal 26-37 [facility] Comment on above: Performed By: #### 7 565040, 0435756436, 3336178579, 58988608, 6645971357, 9081149486, 3935101 ####[facility] (DEFAULT)[address] [place] [address] 46334 MCV (RBC) [Entitic vol] 91 fL Normal 81-100 [facility] Comment on above: Performed By: #### 7 723296, 4726529506, 3595427921, 99236320, 7934904473, 2490245340, 1822139 ####[facility] (DEFAULT)[address] [place] [address]11 Platelet 226 x10 Normal 138-427 [facility] Comment on above: Performed By: #### 7 487204, 3990650688, 5275933249, 89231505, 8154011940, 2990648721, 2994695 ####[facility] (DEFAULT)[address] [place] [address] Platelet mean volume (Bld) [Entitic vol] 11.9 fL High 6.3-10.2 [facility] Comment on above: Performed By: #### 7 122475, 6321947441, 7541854737, 42280343, 4687005631, 1017692679, 4590019 ####[facility] (DEFAULT)[address] [place] [address] RBC 5.15 x10 Normal 3.70-5.30 [facility] Comment on above: Performed By: #### 7 544709, 3758306008, 3974960977, 95908816, 4814339543, 8445573224, 4880234 ####[facility] (DEFAULT)[address] [place] [address] WBC 4.4 x10 Normal 3.5-10.5 [facility] Comment on above: Performed By: #### 7 361075, 1689509051, 1509285326, 38814987, 5662493218, 8052317619, 5389836 ####[facility] (DEFAULT)[address] [place] [address] Standardon 04-25-2021 eGFR Non AA >60 Invalid Interpretation Code [facility] Comment on above: Performed By: #### 1 357491251, 2338276, 1789805016, 8886760188, 30290083, 5934434523, 0565503859, 4308601, 1955179 #### [facility] (DEFAULT) [address] [place] [address] eGFR AA >60 Invalid Interpretation Code [facility] Comment on above: Result Comment: Tram Operator rodger Kidney disease could be indicated at eGFRs of less than 60 ml/min/1.73m2. Kidney Failure is indicated at less than 15 ml/min/1.73m2 Performed By: #### 1 014298309, 9498672, 7345971532, 3955908261, 88056738, 3395528091, 3720655579, 5713124, 3551552 #### [facility] (DEFAULT) [address] [place] [address] 23180 Albumin [Mass/Vol] 4.4 g/dL Normal 3.5-5.0 [facility] Comment on above: Performed By: #### 1 193208958, 8616255, 5283344678, 3880841021, 56222393, 0603083113, 6589469237, 2840891, 3854130 #### [facility] (DEFAULT) [address] [place] [address] 98212 Albumin/Globulin [Mass ratio] 1.5 {ratio} Normal 1.4-2.6 [facility] Comment on above: Performed By: #### 1 807758857, 5913214, 6525198170, 6092350858, 65811811, 5705894074, 8823326818, 4093741, 6992329 #### [facility] (DEFAULT) [address] [place] [address] 34953 Alk Phos 65 IU/L Normal 32-91 [facility] Comment on above: Performed By: #### 1 744298635, 0503358, 9849792907, 9799609227, 96278347, 2487310806, 4102853594, 4234858, 1867655 #### [facility] (DEFAULT) [address] [place] [address] 46799 ALT [Catalytic activity/Vol] 27.0 U/L Normal 17.0-63.0 [facility] Comment on above: Performed By: #### 1 922186213, 7636403, 3838749995, 8982032931, 92687516, 8909166088, 8205628805, 8533331, 7763933 #### [facility] (DEFAULT) [address] [place] [address] 66463 Anion gap [Moles/Vol] 16.0 mmol/L Normal 5.0-19.0 [facility] Comment on above: Performed By: #### 1 725641905, 0608938, 4235859965, 1315599243, 53774028, 0544747373, 7368964864, 2604711, 1081711 #### [facility] (DEFAULT) [address] [place] [address] 33396 AST [Catalytic activity/Vol] 28 U/L Normal 15-41 [facility] Comment on above: Performed By: #### 1 708157657, 1207713, 0895184703, 4821985332, 21076298, 6488160311, 8454832451, 6243182, 3609263 #### [facility] (DEFAULT) [address] [place] [address] 29854 Bili Total 0.8 mg/dL Normal 0.3-1.2 [facility] Comment on above: Performed By: #### 1 692374710, 6053211, 8469746282, 2023613926, 98362710, 6416311150, 1040928978, 7750737, 8291088 #### [facility] (DEFAULT) [address] [place] [address] 31060 Calcium [Mass/Vol] 9.3 mg/dL Normal 8.9-10.3 [facility] Comment on above: Performed By: #### 1 197339551, 6154463, 8453651711, 1700035104, 60866225, 4150670407, 0019905959, 3652909, 4508485 #### [facility] (DEFAULT) [address] [place] [address] 22435 Chloride [Moles/Vol] 103 mmol/L Normal 101-111 [facility] Comment on above: Performed By: #### 1 639730797, 9427565, 5035224900, 6804709692, 45846975, 1204320769, 8955664661, 9870602, 6935318 #### [facility] (DEFAULT) [address] [place] [address] 90473 CO2 [Moles/Vol] 22 mmol/L Normal 21-32 [facility] Comment on above: Performed By: #### 1 399814398, 4260690, 9844500534, 0389951886, 50304850, 2437770911, 8921829577, 6722754, 5543792 #### [facility] (DEFAULT) [address] [place] [address] 68782 Creatinine [Mass/Vol] 0.90 mg/dL Normal 0.90-1.30 [facility] Comment on above: Performed By: #### 1 474208165, 2010501, 2371600964, 4490456357, 86877757, 1508236563, 9822824800, 0553825, 5747833 #### [facility] (DEFAULT) [address] [place] [address] 93752 Globulin (S) [Mass/Vol] 2.9 g/dL Normal 1.5-4.3 [facility] Comment on above: Performed By: #### 1 275095318, 9732376, 8821805846, 2179350150, 54589193, 3313174244, 1167554843, 8883206, 5167629 #### [facility] (DEFAULT) [address] [place] [address] 50847 Glucose [Mass/Vol] 146.0 mg/dL High 74.0-118.0 [facility] Comment on above: Performed By: #### 1 903587840, 3468510, 0501700114, 2206795982, 02212617, 2239194280, 1858343744, 1912497, 2019087 #### [facility] (DEFAULT) [address] [place] [address] 64723 Osmolality 276 mOsm/L Invalid Interpretation Code [facility] Comment on above: Performed By: #### 1 334298183, 3827012, 4194369924, 5636262013, 05580668, 8838428414, 5577801625, 6308339, 2405053 #### [facility] (DEFAULT) [address] [place] [address] 64367 Potassium [Moles/Vol] 4.3 mmol/L Normal 3.6-5.1 [facility] Comment on above: Performed By: #### 1 512567453, 9794737, 0667726551, 1895668105, 39284243, 8294283701, 6634360268, 9430558, 1082694 #### [facility] (DEFAULT) [address] [place] [address] 70733 Protein [Mass/Vol] 7.3 g/dL Normal 6.5-8.1 [facility] Comment on above: Performed By: #### 1 140923011, 8043507, 7911141497, 8837531656, 45891468, 4405034042, 7484501922, 0813818, 3987897 #### [facility] (DEFAULT) [address] [place] [address] 22004 Sodium [Moles/Vol] 137.0 mmol/L Normal 136.0-144.0 [facility] Comment on above: Performed By: #### 1 767004381, 9677112, 3173430493, 5937800603, 33318456, 2644210023, 3925419965, 9516257, 9220578 #### [facility] (DEFAULT) [address] [place] [address] 81055 Urea nitrogen [Mass/Vol] 11 mg/dL Normal 8-26 [facility] Comment on above: Performed By: #### 1 545286568, 8203884, 2825771111, 8927384158, 61730007, 5353565908, 3806646918, 1351896, 9122433 #### [facility] (DEFAULT) [address] [place] [address] 51301 Urea nitrogen/Creatinine [Mass ratio] 12.0 mg/mg Normal 4.6-16.2 [facility] Comment on above: Performed By: #### 1 795952175, 9219692, 8270102108, 3650090380, 43528985, 5999755816, 4684982936, 1984905, 4667539 #### [facility] (DEFAULT) [address] [place] [address] 67280 Extra Redon 04-25-2021 Tube Collected Yes Invalid Interpretation Code [facility] Comment on above: Performed By: #### 7 745257, 6071517558, 9282547905, 24374110, 2751144727, 7517600828, 2406032 ####[facility] (DEFAULT)[address] [place] [address] 83389 Inpatient Patient Summaryon 04-25-2021 Inpatient Patient Summary [address] [id number] Patient Discharge Instructions Name: JOSE HAYNES : 1975 Patient Address: [address] [id number] Primary Care Provider: Name: Provider, Angelica Phone: After you are discharged if you find you have any questions, please, call [phone] ext [phone] to speak to a nurse. Discharge Diagnosis: 1:Chronic atrial fibrillation with rapid ventricular response; 2:COVID-19 virus infection; 3:Hypomagnesemia; 4:Anxiety and depression; 5:Heart failure, left, with LVEF 31-40%; Depression, unspecified; Major depressive disorder, single episode, unspecified Prescription Information: If you have been given a prescription for narcotics, seek immediate medical attention if you have any difficulty breathing or any sudden status changes such as confusion and sleepiness. If you or anyone you know is experiencing suicidal thoughts, mental health, alcohol and/or drug addiction problems; contact the [facility] 04/11 Crisis Hotline -Jukj 4HBYK gm [id number]. If you received any narcotics, sedation, or any other medication that causes drowsiness for the next 24 hours, unless otherwise directed: ? Do not drive a car. ? Do not operate machinery such as power tools, lawn mowers, drills, sewing machines, or stoves ? Avoid alcoholic beverages and drugs for allergies, nerves, or sleep ? Do not make important personal or business decisions or sign any legal documents [facility] would like to thank you for allowing us to assist you with your healthcare needs. The following includes patient education materials and information regarding your injury/illness. JOSE HAYNES has been given the following list of follow-up instructions, prescriptions, and patient education materials: Follow-up Instructions With: Address: When: You have a virtiual appointment with Dr. Silverman April, at 9:00 A.M. The office will call you with the link. Office number is [phone]. Medications During the course of your visit, your medication list was updated with the most current information. The details of those changes are reflected below: New Medications KAYKAY REYNOSO [address], [place] [id number], [phone] fluticasone nasal (Flonase 50 mcg/inh nasal spray) 1 spray(s) Both Nostrils every day for 14 Days. Refills: 0. lisinopril (lisinopril 5 mg oral tablet) 1 tab(s) Oral every day for 30 Days. Refills: 2. metoprolol (Toprol-XL 25 mg oral tablet, extended release) 1 tab(s) Oral every day for 30 Days. Refills: 2. predniSONE (predniSONE 20 mg oral tablet) 1 tab(s) Oral every day for 7 Days. Refills: 0. sodium chloride nasal ([place] Saline Mist 0.65% nasal spray) 2 spray(s) Both Nostrils Every 4 hours as needed congestion for 14 Days. [facility] Refills: 0. [facility], [address] [place] [phone], [phone] lisinopril (lisinopril 5 mg oral tablet) 1 tab(s) Oral every day for 30 Days. Refills: 2. metoprolol (Toprol-XL 25 mg oral tablet, extended release) 1 tab(s) Oral every day for 30 Days. Refills: 2. predniSONE (predniSONE 20 mg oral tablet) 1 tab(s) Oral every day for 7 Days. Refills: 0. Medications That Were Updated - Follow Below Instructions Other Medications Updated: dronedarone 400 Milligram Oral 2 times a day. Updated: rivaroxaban (Xarelto 20 mg oral tablet) 1 tab(s) Oral every day. Medications to Continue That Have Not Changed Other Medications FLUoxetine (PROzac 20 mg oral capsule) 1 cap(s) Oral every day. hydrOXYzine 10 Milligram Oral 2 times a day as needed as needed for anxiety. No Longer Take the Following Medications sertraline (sertraline 100 mg oral tablet) 1 tab(s) Oral every day. It is important to always keep an active list of medications available so that you can share with other providers and manage your medications appropriately. As an additional courtesy, we are also providing you with your final active medications list that you can keep with you. dronedarone 400 Milligram Oral 2 times a day. FLUoxetine (PROzac 20 mg oral capsule) 1 cap(s) Oral every day. fluticasone nasal (Flonase 50 mcg/inh nasal spray) 1 spray(s) Both Nostrils every day for 14 Days. Refills: 0. hydrOXYzine 10 Milligram Oral 2 times a day as needed as needed for anxiety. lisinopril (lisinopril 5 mg oral tablet) 1 tab(s) Oral every day for 30 Days. Refills: 2. lisinopril (lisinopril 5 mg oral tablet) 1 tab(s) Oral every day for 30 Days. Refills: 2. metoprolol (Toprol-XL 25 mg oral tablet, extended release) 1 tab(s) Oral every day for 30 Days. Refills: 2. metoprolol (Toprol-XL 25 mg oral tablet, extended release) 1 tab(s) Oral every day for 30 Days. Refills: 2. predniSONE (predniSONE 20 mg oral tablet) 1 tab(s) Oral every day for 7 Days. Refills: 0. predniSONE (predniSONE 20 mg oral tablet) 1 tab(s) Oral ev (more content not included)... Normal [facility] Magnesiumon 04-25-2021 Magnesium [Mass/Vol] 1.99 mg/dL Normal 1.80-2.50 [facility] Comment on above: Performed By: #### 1 [id number], 2848671, 5796795909, 7263333686, 04123216, 5753508231, 5569816405, 9639207, 2810132 #### [facility] (DEFAULT) [address] [place] [address] Nutrition Noteon 04-25-2021 Nutrition Note Pt admitted with SOB , A-fib w/RVR, + COVID. Pt reports on/off diarrhea along w/ poor appetite for the past few weeks. Pt initially admitted 04/13, signed out AMA 04/14. Per admit wt of 90kg, significant 6.5kg wt loss noted from 04/13 admit wt. Suspect wt loss r/t poor po, gi issues. Low Mg noted on admit, replaced. BS and BNP mildly elevated. Per social hx, excessive ETOH hx along w/ daily marijuana use noted. Pt is at high nutrition risk r/t significant wt loss. At this time would suggest adding a probiotic along w/ Vit C, Vit D, Zn, melatonin. Will monitor need to add supplements after current intake established. To follow. [facility] Progress Note - Nurseon 04-14 Progress Note - Nurse Discharge instructions explained to patient. Questions answered and states understanding. Instructed to waste picker prescriptions at [facility]. Discharged to home. ambulatory to private vehicle. [Electronically Signed on: 04/25/2021 16:33 EST] Marisela Pulido RN [Verified on: 04/25/2021 16:33 EST] Marisela Pulido RN [facility] Telemetry Stripson Telemetry Strips [id number] [facility] TnI HSon 04-25-2021 Troponin I High Sensitivity 13 pg/mL Normal <=20 [facility] Comment on above: Result Comment: Male Baseline Delta 1Hr (Note pg/mL=ng/L) <20pg/mL 50-60% >20pg/mL 20% Female Baseline Delta 1Hr <15pg/mL 50-60% >15pg/mL 20% Other Baseline Delta 1Hr <18ng/mL 50-60% >18ng/mL 20% ([employer] Guidelines November 2017) Performed By: #### 7 [id number], [id number], 1444016243, 28054258, 1224681980, 0431862445, 0727767 ####[facility] (DEFAULT)[address] [place] [address] US Echocardiogram Completeon 04-25-2021 US Echocardiogram Complete DATE OF STUDY: 04/25/2021 US ECHOCARDIOGRAM COMPLETE Aortic root: 3.4 IVSd: 0.9 LVPWd: 0.9 The left ventricle appears to be mildly dilated with moderate LV systolic dysfunction with an ejection fraction in the 35-40% range. There is normal thickness of the ventricle with global hypokinesis. The right ventricle appears to be borderline dilated with normal right ventricular systolic function. There is moderate left atrial enlargement and moderate right atrial enlargement with the left atrium measuring 5.5 cm which actually may place it closer to moderate to severe if not severe. No pericardial effusion is seen. The aortic valve is tricuspid and opening well with no significant stenotic or regurgitant flow seen. The mitral valve appears to be structurally normal with at least moderate mitral regurgitation noted, this appears to be 2 central jets; likely functional in etiology. The tricuspid valve appears to be structurally normal with mild tricuspid regurgitation noted. RVSP is estimated to be 25 mmHg. IMPRESSION: 1. At least moderate LV systolic dysfunction with an ejection fraction in the 35-40% range. 2. Moderate mitral regurgitation, this appears to be functional mitral regurgitation. 3. Mild tricuspid regurgitation. Stu Bernal M.D. JOB #: [id number] bk Final Dictated by: Stu Bernal MD Dictated DT/TM: 04/25/21 11:58 Signed (Electronic Signature): Stu Bernal MD 04/26/21 8:49 am Technologist: VANCE Dobbs [facility] .Auto Diff 104-24-2021 Auto Daniels % 15 % High 04-25 [facility] Comment on above: Performed By: #### 1 [id number], 6158569, 8379409687, 7083278130, 1002533, 3093198788, 9899192, 61255932, 2615311 ####[facility] (DEFAULT)[address] [place] [address] Baso Abs# 0.0 x10 Normal 0.0-0.2 [facility] Comment on above: Performed By: #### 1 919702083, 3523215, 1029066059, 1872884182, 8969310, 5992867234, 3435513, 67342733, 4855003 ####[facility] (DEFAULT)[address] [place] [address] Basophils/100 WBC (Bld) 0.4 % Normal 0.2-2.0 [facility] Comment on above: Performed By: #### 1 018739239, 1260218, 6142500924, 4627660177, 0684767, 6157544115, 0918147, 76034277, 1251830 ####[facility] (DEFAULT)[address] [place] [address] Eos Abs# 0.0 x10 Normal 0.0-0.4 [facility] Comment on above: Performed By: #### 1 399571424, 4493733, 3942458862, 0548772154, 8588392, 7593375090, 1765464, 01173046, 1746977 ####[facility] (DEFAULT)[address] [place] [address] Eosinophils/100 WBC (Bld) 0.4 % Low 0.9-4.0 [facility] Comment on above: Performed By: #### 1 595650579, 6313954, 8691458667, 5350558476, 9517592, 7010341376, 5868558, 96842027, 3515948 ####[facility] (DEFAULT)[address] [place] [address] Lymph Abs# 1.0 x10 Low 1.3-2.9 [facility] Comment on above: Performed By: #### 1 155748371, 5566827, 2560049813, 1746071020, 6297954, 6345487613, 0688931, 62125275, 1324913 ####[facility] (DEFAULT)[address] [place] [address] Lymphocytes/100 WBC (Bld) 17 % Normal 14-48 [facility] Comment on above: Performed By: #### 1 711020660, 8629903, 0462982517, 5071174978, 2167140, 1523153492, 1688758, 18525536, 4310409 ####[facility] (DEFAULT)[address] [place] [address] Daniels Abs# 0.9 x10 High 0.0-0.8 [facility] Comment on above: Performed By: #### 1 032173974, 3080996, 8399709632, 3956171192, 4329629, 8368443195, 1822474, 38846134, 8229033 ####[facility] (DEFAULT)[address] [place] [address] Neut Abs# 3.8 x10 Normal 1.5-9.2 [facility] Comment on above: Performed By: #### 1 290246952, 8936834, 2530392252, 7175092511, 4884794, 1063560846, 6152048, 21830680, 8244806 ####[facility] (DEFAULT)[address] [place], [place] [address] Neutrophils/100 WBC (Bld) 67 % Normal 44-88 [facility] Comment on above: Performed By: #### 1 034507309, 5018467, 6004357342, 0715593724, 6881298, 9704808469, 9093401, 70472185, 4228277 ####[facility] (DEFAULT)[address] [place] [address] .QC Respiratory Panel 2.1 (B ioFire)on 04-24-2021 Internal Control-Resp Panel 2.1(BioFire) Pass [facility] Comment on above: Order Comment: Order ed by Caroline.[[email or web address]] Performed By: #### 1 [id number], 7051459, 2584129988, 6470788948, 22652531, 9799985990, 5897491169, 0824822, 0357254 #### [facility] (DEFAULT) [address] [place] [address] BNP.on 04-24-2021 Internal Control Pass Normal [facility] Comment on above: Performed By: #### 1 183824424, 9214837, 7583145267, 7681552087, 4300468, 3964505567, 2902388, 24358862, 3980385 ####[facility] (DEFAULT)[address] [place] [address] Natriuretic peptide B (Bld) [Mass/Vol] 486.0 pg/mL High 0.0-100.0 [facility] Comment on above: Result Comment: BNP results greater than 100 pg/mL are considered abnormal and suggestive of patients with CHF. Higher BNP concentrations measured in the first 72 hours after an acute coronary syndorme are associated with an increased risk of , myocardial infarction, and CHF. Performed By: #### 1 921316934, 8402635, 4394216584, 0097165890, 2580643, 8544060844, 9371753, 32063428, 4579329 ####[facility] (DEFAULT)[address] [place] [address] CBC w/ Auto Diffon 2 Erythrocyte distribution width (RBC) [Ratio] 13.1 % Normal 11.5-15.0 [facility] Comment on above: Performed By: #### 1 461555581, 3264653, 4524016146, 6995382405, 8261479, 4875834469, 6564507, 69609144, 8782389 ####[facility] (DEFAULT)[address] [place] [address] Hematocrit (Bld) [Volume fraction] 45.7 % Normal 34.8-51.9 [facility] Comment on above: Performed By: #### 1 693721014, 5822481, 8217882360, 4406099387, 0170725, 5226660411, 6567693, 01821614, 5583606 ####[facility] (DEFAULT)[address] [place] [address] Hemoglobin (Bld) [Mass/Vol] 15.4 g/dL Normal 11.8-17.7 [facility] Comment on above: Performed By: #### 1 521683933, 4205226, 1801672081, 8568751108, 6812628, 5535678626, 6896826, 36473363, 5593566 ####[facility] (DEFAULT)[address] [place] [address] Instr WBC 5.7 x10 Invalid Interpretation Code [facility] Comment on above: Performed By: #### 1 517548910, 9884387, 6501272113, 9577517221, 7329229, 8413781685, 0918365, 61827106, 1018667 ####[facility] (DEFAULT)[address] [place] [address] Man Diff? Auto Normal [facility] Comment on above: Performed By: #### 1 630731709, 3293377, 2879878125, 0642045038, 0234071, 2735254059, 7683154, 71340940, 0663164 ####[facility] (DEFAULT)[address] [place] [address]89 MCH (RBC) [Entitic mass] 31 pg Normal 24-34 [facility] Comment on above: Performed By: #### 1 954045110, 6119410, 2231004861, 7420908214, 7785940, 2000829955, 5642830, 63752303, 6560426 ####[facility] (DEFAULT)[address] [place] [address]34 MCHC (RBC) [Mass/Vol] 34 g/dL Normal 26-37 [facility] Comment on above: Performed By: #### 1 214034392, 3589959, 5132323680, 1265805215, 7186888, 7499404621, 0058989, 25343467, 8235810 ####[facility] (DEFAULT)[address] [place] [address]996 MCV (RBC) [Entitic vol] 91 fL Normal 81-100 [facility] Comment on above: Performed By: #### 1 080556135, 8242457, 4003591060, 9656657866, 9402978, 1114486600, 9371756, 69343151, 3617224 ####[facility] (DEFAULT)[address] [place] [address]292 Platelet 227 x10 Normal 138-427 [facility] Comment on above: Performed By: #### 1 745770673, 0906083, 3024799413, 7974612379, 4109416, 2148625776, 3181298, 28556120, 9575951 ####[facility] (DEFAULT)[address] [place] [address] Platelet mean volume (Bld) [Entitic vol] 11.5 fL High 6.3-10.2 [facility] Comment on above: Performed By: #### 1 182166224, 4698054, 6038320809, 5614512127, 8301552, 7929043095, 2649755, 81869345, 7758191 ####[facility] (DEFAULT)[address] [place] [address] RBC 5.02 x10 Normal 3.70-5.30 [facility] Comment on above: Performed By: #### 1 564859444, 1189108, 5946875704, 2769025085, 4953203, 4715003473, 2757915, 48171510, 4966615 ####[facility] (DEFAULT)[address] [place] [address] WBC 5.7 x10 Normal 3.5-10.5 [facility] Comment on above: Performed By: #### 1 887539522, 4796067, 0471279173, 7254244153, 7558340, 4829832612, 8722247, 97963863, 5034671 ####[facility] (DEFAULT)[address] [place] [address] Standardon 04-24-2021 eGFR Non AA >60 Invalid Interpretation Code [facility] Comment on above: Performed By: #### 1 900079236, 8766123, 4069733831, 0888858053, 3104904, 5966289990, 9140507, 75289098, 6100735 ####[facility] (DEFAULT)[address] [place] [address] eGFR AA >60 Invalid Interpretation Code [facility] Comment on above: Result Comment: Tram Operator rodger Kidney disease could be indicated at eGFRs of less than 60 ml/min/1.73m2. Kidney Failure is indicated at less than 15 ml/min/1.73m2 Performed By: #### 1 376018514, 7338340, 5898593748, 7290783316, 6328348, 0377552203, 5426459, 03897867, 4612757 ####[facility] (DEFAULT)[address] [place] [address]9612 Albumin [Mass/Vol] 4.5 g/dL Normal 3.5-5.0 [facility] Comment on above: Performed By: #### 1 331541151, 4305232, 2485788474, 4445385679, 2393751, 2105045654, 0452866, 37290913, 2953120 ####[facility] (DEFAULT)[address] [place] [address]01 Albumin/Globulin [Mass ratio] 1.7 {ratio} Normal 1.4-2.6 [facility] Comment on above: Performed By: #### 1 322137253, 8463455, 5491412869, 7361761990, 4772559, 4797992839, 7103100, 00759293, 0492831 ####[facility] (DEFAULT)[address] [place] [address]339 Alk Phos 66 IU/L Normal 32-91 [facility] Comment on above: Performed By: #### 1 232660592, 8612011, 6770176703, 2375410462, 6006299, 4898451171, 4156939, 15201831, 2657046 ####[facility] (DEFAULT)[address] [place] [address] 11172 ALT [Catalytic activity/Vol] 25.0 U/L Normal 17.0-63.0 [facility] Comment on above: Performed By: #### 1 905792382, 6362029, 3698034292, 8499649496, 9651403, 5996496185, 8462184, 77293662, 8751127 ####[facility] (DEFAULT)[address] [place] [address] 67834 Anion gap [Moles/Vol] 14.0 mmol/L Normal 5.0-19.0 [facility] Comment on above: Performed By: #### 1 298825698, 5757030, 0219665456, 9823054915, 4528195, 9374362162, 2608297, 80414014, 2001657 ####[facility] (DEFAULT)[address] [place] [address] 33809 AST [Catalytic activity/Vol] 32 U/L Normal 15-41 [facility] Comment on above: Performed By: #### 1 942802155, 5984544, 6489259861, 9174351405, 0345155, 9492102384, 6987707, 41906736, 2199265 ####[facility] (DEFAULT)[address] [place] [address]9711 Bili Total 1.1 mg/dL Normal 0.3-1.2 [facility] Comment on above: Performed By: #### 1 016976704, 7375956, 1850897774, 9731610882, 0337464, 2197452416, 7071421, 93214385, 1124003 ####[facility] (DEFAULT)[address] [place] [address] 22967 Calcium [Mass/Vol] 9.2 mg/dL Normal 8.9-10.3 [facility] Comment on above: Performed By: #### 1 189566236, 4336981, 0267326746, 1558529545, 4430300, 6104096199, 2678711, 64335749, 1889798 ####[facility] (DEFAULT)[address] [place] [address] 57843 Chloride [Moles/Vol] 100 mmol/L Low 101-111 [facility] Comment on above: Performed By: #### 1 167432349, 9423104, 1137437688, 2036854814, 5546865, 7111737916, 6724160, 13569708, 7500241 ####[facility] (DEFAULT)[address] [place] [address] 36846 CO2 [Moles/Vol] 25 mmol/L Normal 21-32 [facility] Comment on above: Performed By: #### 1 336513095, 7246799, 5533673579, 2762029388, 0121118, 9796838087, 9923258, 15836760, 6108185 ####[facility] (DEFAULT)[address] [place] [address] 60204 Creatinine [Mass/Vol] 1.07 mg/dL Normal 0.90-1.30 [facility] Comment on above: Performed By: #### 1 217994790, 5368913, 4685954865, 8958081317, 5989436, 4849645226, 0119016, 16545612, 3903944 ####[facility] (DEFAULT)[address] [place] [address] 02376 Globulin (S) [Mass/Vol] 2.7 g/dL Normal 1.5-4.3 [facility] Comment on above: Performed By: #### 1 666068359, 7125855, 1261766525, 9552505119, 7249306, 4924495933, 5377845, 00925480, 2952815 ####[facility] (DEFAULT)[address] [place] [address] 99541 Glucose [Mass/Vol] 85.0 mg/dL Normal 74.0-118.0 [facility] Comment on above: Performed By: #### 1 990078996, 4056367, 5842313761, 4886023039, 1523404, 0843788786, 5000429, 77642332, 5023652 ####[facility] (DEFAULT)[address] [place] [address] 37678 Osmolality 268 mOsm/L Invalid Interpretation Code [facility] Comment on above: Performed By: #### 1 807152259, 7533203, 5519992155, 7404660499, 9236538, 3344503250, 1063812, 61014143, 8103444 ####[facility] (DEFAULT)[address] [place] [address] 77799 Potassium [Moles/Vol] 4.2 mmol/L Normal 3.6-5.1 [facility] Comment on above: Performed By: #### 1 093585474, 3285152, 0183599389, 5523684300, 2150919, 1168653271, 4073381, 70762847, 8139233 ####[facility] (DEFAULT)[address] [place] [address] 38460 Protein [Mass/Vol] 7.2 g/dL Normal 6.5-8.1 [facility] Comment on above: Performed By: #### 1 027344053, 9811519, 6651803670, 4672022874, 6214051, 6416382363, 7465122, 00372289, 6962987 ####[facility] (DEFAULT)[address] [place] [address] 19060 Sodium [Moles/Vol] 135.0 mmol/L Low 136.0-144.0 [facility] Comment on above: Performed By: #### 1 404105202, 3634442, 5352231669, 1595346030, 6688404, 7178070220, 7216495, 11321563, 6358552 ####[facility] (DEFAULT)[address] [place] [address] 92701 Urea nitrogen [Mass/Vol] 9 mg/dL Normal 8-26 [facility] Comment on above: Performed By: #### 1 657923025, 3030326, 9824587550, 4568684174, 4997557, 2639338409, 8632332, 83254275, 3902632 ####[facility] (DEFAULT)[address] [place] [address] 42796 Urea nitrogen/Creatinine [Mass ratio] 8.0 mg/mg Normal 4.6-16.2 [facility] Comment on above: Performed By: #### 1 934099417, 7223158, 2840452075, 5911263154, 2072387, 1535173582, 8754806, 46106224, 8894713 ####[facility] (DEFAULT)[address] [place] [address] 27694 ED Clinical Summaryon 2021 ED Clinical Summary [facility] - Emergency Department [address] [place] [address] ED Clinical Summary PERSON INFORMATION Name: JOSE HAYNES Age: 46 Years Sex: MALE : 1975 MRN: Acct#: Visit Reason: Chills; Heart rate fast; SOB - Shortness of breath; SOB,AFIB WITH RVR, COVID19, HYPOMAGNESEMIA Arrival: 04/24/2021 16:21:15 Discharge: LOS: 000 03:29 Check In: 04/24/2021 16:21:15 Checkout:04/24/2021 19:50:32 Address: [address] [place] [address] PCP: Provider, None PROVIDER INFORMATION Provider Role Assigned Unassigned MAXI LOU ED PA 04/24/2021 16:22:58 Blake Navarro MD ED Provider 04/24/2021 16:23:00 04/24/2021 16:23:04 Beatriz Pryor SCREEN EXAMINER Nurse 04/24/2021 16:28:07 Shanda Santiago SCREEN EXAMINER Nurse 04/24/2021 19:25:20 VITALS INFORMATION Vital Sign Triage Latest Temperature Tympanic Temperature Temporal Artery Pulse Rate 160 bpm 144 bpm O2 Sat 100 % 100 % Respiratory Rate 20 br/min 20 br/min Blood Pressure /109 mmHg /109 mmHg MEDICAL INFORMATION Medications Given: Medication Dose Route dilTIAZem (CardiZEM IV) 10 mg IV Push Sodium Chloride 0.9% intravenous solution 500 mL 500 mL Initial Volume 1000 mL/hr IV Right Mid Forearm dilTIAZem (CardiZEM IV) 10 mg IV Push magnesium sulfate 1 gm IV Piggyback dilTIAZem 125 mg + Sodium Chloride 0.9% intravenous solution 100 mL (diltiazem additive titrate 125 mg + Sodium Chloride 0.9% intravenous solution 100 mL) 125 mL Initial Volume 5 mL/hr IV Left Upper Forearm dilTIAZem 125 mg + Sodium Chloride 0.9% intravenous solution 100 mL (diltiazem additive titrate 125 mg + Sodium Chloride 0.9% intravenous solution 100 mL) 125 mL Initial Volume 5 mL/hr IV Left Upper Forearm Allergy Information: No Known Medication Allergies PHYSICIAN DOCUMENTATION Patient: JOSE HAYNES Age: 46 years Sex: MALE : 1975 Associated Diagnoses: Shortness of breath; Atrial fibrillation with RVR; COVID-19 virus infection; Hypomagnesemia Author: MAXI LOU Basic Information Time seen: Date & time 04/24/2021 16:23:00. History source: Patient. Arrival mode: Private vehicle, walking. History of Present Illness Patient is a 46-year-old male presenting to the emergency department complaining palpitations, atrial fibrillation, shortness of breath, chills. Patient states he has a history of atrial fibrillation Currently on Multaq and Eliquis. States he has been taking his medications as prescribed. Indicates approximately 3 weeks ago he started having symptoms where his heart rate seemed elevated and palpitations along with chills feeling of shortness of breath. States he was evaluated in the emergency department given Cardizem and admitted to the hospital. He states that he ended up leaving AGAINST MEDICAL ADVICE and was trying to follow-up with his commutator assembler in [place] along with his family doctor in [place]. States he has not followed up with anyone but his heart rate has continued to be elevated over the last 3 weeks along with feeling shortness of breath. States he has continued to take his Multaq and Eliquis without any relief. He also reports he has had diarrhea a few different times throughout the last couple weeks. Denies any abdominal pains, vomiting, fevers, chest pains. Review of Systems Constitutional symptoms: No fever, Skin symptoms: No rash, Eye symptoms: Vision unchanged. ENMT symptoms: No sore throat, no nasal congestion. Respiratory symptoms: Shortness of breath. Cardiovascular symptoms: Palpitations, tachycardia, No peripheral edema, Gastrointestinal symptoms: Diarrhea, no abdominal pain, no nausea, no vomiting. Genitourinary symptoms: No dysuria, Musculoskeletal symptoms: No back pain, Neurologic symptoms: No headache, no dizziness. Health Status Allergies: Allergic Reactions (Selected) No Known Medication Allergies. Medications: (Selected) Documented Medications Documented Xarelto 20 mg oral tablet: 20 mg, 1 tab(s), PO, qPM, 30 tab(s), 0 Refill(s) metoprolol: 0 Refill(s) sertraline 100 mg oral tablet: 100 mg, 1 tab(s), PO, Daily, 0 Refill(s). Past Medical/ Family/ Social History Medical history: Resolved Irregular heart beat ([id number]): Resolved. Laceration of eyebrow and forehead ([id number]): Resolved.. Social history: Social & Psychosocial Habits Alcohol 04/05/2021 Alcohol Use: Never 04/14/2021 Alcohol Use: Past Type: Beer, Liquor Frequency: 1-2 times per month Average drinks per episode in last year: 68 Maximum drinks per episode in last year: 2 Previous treatment: Inpatient Has alcohol use interfered with work or home life: Yes Do you ever drink more than intended: Yes Has anyone been hurt or at risk by your drinking: No Ready to change: Yes Concerns about alcohol use in household: No Comment: Pt states that he has recently stopped drinking that his last drink was 1 month ago. He had two beers. He had been ve (more content not included)... [facility] ED Note - Otheron 04-24-2021 ED Note - Other *phone calls started before my shift* 1729 - mariama talked to prasad at [place] in [place], pillowcase turner was going to call back within an hour 1831 - no call back, left message with all of pt's info and call back number [phone] - called back again, left another message, now calling [facility] for acceptance [Electronically Signed on: 04/24/2021 19:04 EST] Donna Haas [Verified on: 04/24/2021 19:04 EST] Donna Haas 193 - [facility] on request, [facility] days to check up on patient and see if transfer is needed [Electronically Signed on: 04/24/2021 19:42 EST] Donna Haas [facility] ED Note - Physicianon 2021 ED Note - Physician Patient: WADE HAYNES Age: 46 years Sex: MALE : 1975 Associated Diagnoses: Shortness of breath; Atrial fibrillation with RVR; COVID-19 virus infection; Hypomagnesemia Author: MAXI LOU Basic Information Time seen: Date & time 04/24/2021 16:23:00. History source: Patient. Arrival mode: Private vehicle, walking. History of Present Illness Patient is a 46-year-old male presenting to the emergency department complaining palpitations, atrial fibrillation, shortness of breath, chills. Patient states he has a history of atrial fibrillation Currently on Multaq and Eliquis. States he has been taking his medications as prescribed. Indicates approximately 3 weeks ago he started having symptoms where his heart rate seemed elevated and palpitations along with chills feeling of shortness of breath. States he was evaluated in the emergency department given [facility] and admitted to the hospital. He states that he ended up leaving AGAINST MEDICAL ADVICE and was trying to follow-up with his commutator assembler in [place] along with his family doctor in [place]. States he has not followed up with anyone but his heart rate has continued to be elevated over the last 3 weeks along with feeling shortness of breath. States he has continued to take his Multaq and Eliquis without any relief. He also reports he has had diarrhea a few different times throughout the last couple weeks. Denies any abdominal pains, vomiting, fevers, chest pains. Review of Systems Constitutional symptoms: No fever, Skin symptoms: No rash, Eye symptoms: Vision unchanged. ENMT symptoms: No sore throat, no nasal congestion. Respiratory symptoms: Shortness of breath. Cardiovascular symptoms: Palpitations, tachycardia, No peripheral edema, Gastrointestinal symptoms: Diarrhea, no abdominal pain, no nausea, no vomiting. Genitourinary symptoms: No dysuria, Musculoskeletal symptoms: No back pain, Neurologic symptoms: No headache, no dizziness. Health Status Allergies: Allergic Reactions (Selected) No Known Medication Allergies. Medications: (Selected) Documented Medications Documented Xarelto 20 mg oral tablet: 20 mg, 1 tab(s), PO, qPM, 30 tab(s), 0 Refill(s) metoprolol: 0 Refill(s) sertraline 100 mg oral tablet: 100 mg, 1 tab(s), PO, Daily, 0 Refill(s). Past Medical/ Family/ Social History Medical history: Resolved Irregular heart beat ([id number]): Resolved. Laceration of eyebrow and forehead ([id number]): Resolved.. Social history: Social & Psychosocial Habits Alcohol 04/05/2021 Alcohol Use: Never 04/14/2021 Alcohol Use: Past Type: Beer, Liquor Frequency: 1-2 times per month Average drinks per episode in last year: 68 Maximum drinks per episode in last year: 2 Previous treatment: Inpatient Has alcohol use interfered with work or home life: Yes Do you ever drink more than intended: Yes Has anyone been hurt or at risk by your drinking: No Ready to change: Yes Concerns about alcohol use in household: No Comment: Pt states that he has recently stopped drinking that his last drink was 1 month ago. He had two beers. He had been very alcohol dependent since time in . He said it was a crutch for stress. He recently decided to quit. - 04/14/2021 01:43 - Inga Guerrero Substance Abuse 04/05/2021 Substance use: Current Type: Marijuana 04/14/2021 Substance use: Current Type: Marijuana Frequency: Several times per day Previous treatment: None Has drug use interfered with your work or home life: Yes Ready to change: No Comment: pt states that he has a medical marijuana card and uses pot in many forms daily all day long for his chronic back pain and ptsd - 04/14/2021 01:47 - Inga Guerrero Tobacco 12/17/2017 Smoking tobacco use: Dips tobacco 04/14/2021 Smoking tobacco use: dips Electronic Cigarette/Vaping 04/05/2021 Electronic Cigarette Use: Never 04/14/2021 Electronic Cigarette Use: Use, within last 90 days Type: Cannabinoid infused Ready to Change: No Comment: pt uses marijuana products every day in all different forms and occasionally does vape it - 04/14/2021 01:46 - Inga Guerrero . Physical Examination CONST: -Well-developed well-nourished. -Acute distress: No -Vitals: reviewed. SKIN: -Gross abnormalities: No EYES: -EOM intact, ELLE: -Sclera conjunctiva: Unremarkable. ENT: - pharynx pink and dry NECK: -Supple (envj-ed-tltkm): non-tender. CARD: -Rate and rhythm: Irregularly irregular, tachycardic -Edema: No -Calf pain: No RESP: -Respiratory effort and chest excursion with respirations: Normal -Breath sounds equal bilaterally: Clear -Wheezes: No -Rales: No BACK: -Signs of pain with movement: No ABD: -Distended: No -Deep palpation: Non-tender, soft, no guarding or rebound tenderness EXT: Gross appearance and use of all four extremities: Unremarkable NEURO: -Patient: alert -Gross CN or Focal Neuro deficits: No -Oriented to: person, chapis (more content not included)... [facility] ED Patient Education Noteon 04-24-2021 ED Patient Education Note Education Materials [facility] ED Patient Summaryon 022 ED Patient Summary [facility] - Emergency Department [address] [place] [address] PATIENT DISCHARGE INSTRUCTIONS Patient Information Name: JOSE HAYNES Age: 46 Years Date of : 1975 Reason For Visit: Chills; Heart rate fast; SOB - Shortness of breath; SOB,AFIB WITH RVR, COVID19, HYPOMAGNESEMIA Arrival Time: 04/24/2021 16:21:15 Primary Care Physician: Provider, None Attending Physician: Ciarra Baxter MD Comment: Visit Diagnosis: Diagnoses This Visit Atrial fibrillation with RVR (I48.91) Chills ([id number]) COVID-19 virus infection (U07.1) Heart rate fast ([id number]) Hypomagnesemia (E83.42) Shortness of breath (R06.02) SOB - Shortness of breath ([id number]) Prescription Information: If you have been given a prescription for narcotics, seek immediate medical attention if you have any difficulty breathing or any sudden status changes such as confusion and sleepiness. If you or anyone you know is experiencing suicidal thoughts, mental health, alcohol and/or drug addiction problems; contact the [facility] 04/11 Crisis Hotline -Text 4HSUQ ld 806366. If you received any narcotics, sedation, or any other medication that causes drowsiness for the next 24 hours, unless otherwise directed: ? Do not drive a car. ? Do not operate machinery such as power tools, lawn mowers, drills, sewing machines, or stoves ? Avoid alcoholic beverages and drugs for allergies, nerves, or sleep ? Do not make important personal or business decisions or sign any legal documents Medication Information: The exam and treatment you received today in the [facility] Emergency Department were for an urgent problem and are not intended as complete care. It is important for you to follow up with a doctor, nurse practitioner, or physician?s ict sales assistant for ongoing care. If your symptoms become worse or you do not improve as expected and you are unable to reach your usual health care provider, you should return to the Emergency Department, we are available 24 hours a day. For those patients who have received Radiology results, the interpretation of your X-ray as given to you by our Emergency Department physician is only a preliminary report. The Radiologist will review your films and if there is a change in the diagnosis you will be notified by phone. Please make sure you have provided a working phone number so we can reach you if necessary. In the event that you had a lab culture while you were a patient in the Emergency Department, you will be notified by phone if there is a need to change your antibiotic. Please make sure you have provided a working phone number so we can reach you if necessary. [facility] Emergency Department has provided you with a complete list of medications post discharge. Please inform your net c developer/provider of your visit and for further instruction on these medications. Any specific questions regarding your chronic medications and dosages should be discussed with your primary care physician(s) and/or pharmacist. Medications to Continue That Have Not Changed Other Medications dronedarone Oral 2 times a day. rivaroxaban (Xarelto 20 mg oral tablet) 1 tab(s) Oral once a day (in the evening). sertraline (sertraline 100 mg oral tablet) 1 tab(s) Oral every day. Visit Information Allergies: Substance Reaction Symptoms Type Comments No Known Medication Allergies Drug Vital Signs: Vitals and Measurements this Visit (last charted value for your 04/24/2021 visit) Vital Signs This Visit Temperature Oral: 37.2 DegC Peripheral Pulse Rate: 144 bpm Respiratory Rate: 20 br/min Systolic Blood Pressure: 127 mmHg Diastolic Blood Pressure: 99 mmHg SpO2: 100 % Oxygen Therapy: Room air Measurements This Visit Height/Length Dosin.880 cm Height/Length Estimated: 182.880 cm Weight Dosin.990 kg Weight Estimated: 92.990 kg Problems List: Problem Onset Comments Alcohol abuse, in remission Pt states he was a very heavy drinker for many years but his last drink was 1 month ago Atrial fibrillation Back pain, chronic Disease caused by 2019 novel coronavirus 04/24/21 Problem added by Rule (IC_COVID19_AUTO_PROBL EM) following Respiratory Panel 2.1 ([employer]) from Nasopharyngeal Swab collected on 24-APR-2021 16:36:00 EST tested positive for COVID-19. Hypertension Marijuana use, continuous Pt states that he smokes every day all day long as needed for chronic back pain. Patient Education Viruses or Bacteria What?s got you sick? Antibiotics only treat bacterial infections. Viral illnesses cannot be treated with antibiotics. When an antibiotic is not prescribed, ask your healthcare professional for tips on how to relieve symptoms and feel better. Usual Cause Illness Viruses Bacteria Antibiotic Need (more content not included)... Normal [facility] Extra Redon 04-24-2021 Tube Collected Yes Invalid Interpretation Code [facility] Comment on above: Performed By: #### 1 [id number], [id number], [id number], [id number], [id number], [id number], [id number], [id number] ####[facility] (DEFAULT)[address] [place] [address] Lactic Acidon 04-24-2021 Lactic Acid 17.0 mg/dL Normal 4.5-19.8 [facility] Comment on above: Performed By: #### 1 [id number], [id number], [id number], [id number], [id number], [id number], [id number], [id number] #### [facility] (DEFAULT) [address] [place] [address] Magnesiumon 04-24-2021 Magnesium [Mass/Vol] 1.72 mg/dL Low 1.80-2.50 [facility] Comment on above: Performed By: #### 1 [id number], [id number], [id number], [id number], 1232109, [id number], 4349262, [id number], [id number] ####[facility] (DEFAULT)[address] [place] [address] PTon 04-24-2021 INR Coag (PPP) [Relative time] 1.08 {INR} Normal 0.91-1.11 [facility] Comment on above: Performed By: #### 1 [id number], [id number], [id number], [id number], 5488684, [id number], 7104182, 67266366, 8234779 ####[facility] (DEFAULT)[address] [place] [address] PT 11.6 second(s) Normal 9.7-11.8 [facility] Comment on above: Performed By: #### 1 [id number], [id number], [id number], [id number], 1458265, [id number], 4291019, 54858696, 8737842 ####[facility] (DEFAULT)[address] [place] [address] PTTon 04-24-2021 PTT 27 second(s) Normal 25-35 [facility] Comment on above: Performed By: #### 1 [id number], [id number], [id number], [id number], 4632659, [id number], 5888024, 93607274, [id number] ####[facility] (DEFAULT)[address] [place] [address] TSH w/ Reflex to FT4on 04-24 TSH Qn 1.05 m[IU]/L Normal 0.45-5.33 [facility] Comment on above: Result Comment: Gene ral Population (males and non- females, aged 21-88) 0.45 - 5.33 Females, 1st Trimester 0.05 - 3.70 Females, 2nd Trimester 0.31 - 4.35 Females, 3rd Trimester 0.41 - 5.18 Performed By: #### 6 [id number] ####[facility] (DEFAULT)[address] [place] [address] TnI HSon 04-24-2021 Troponin I High Sensitivity 28 pg/mL Critically abnormal <=20 [facility] Comment on above: Order Comment: To be done 1 hour after first Troponin HS Result Comment: Elev ated hsTnI 28 result called and read back ok to: BEATRIZ CISNEROS IN ER at: 18:16:07 04/24/2021 by: ALBERT Male Baseline Delta 1Hr (Note pg/mL=ng/L) <20pg/mL 50-60% >20pg/mL 20% Female Baseline Delta 1Hr <15pg/mL 50-60% >15pg/mL 20% Other Baseline Delta 1Hr <18ng/mL 50-60% >18ng/mL 20% ([employer] Guidelines November 2017) Performed By: #### 5 [id number] ####[facility] (DEFAULT)[address] [place] [address] Troponin I High Sensitivity 20 pg/mL Normal <=20 [facility] Comment on above: Result Comment: Male Baseline Delta 1Hr (Note pg/mL=ng/L) <20pg/mL 50-60% >20pg/mL 20% Female Baseline Delta 1Hr <15pg/mL 50-60% >15pg/mL 20% Other Baseline Delta 1Hr <18ng/mL 50-60% >18ng/mL 20% ([employer] Guidelines November 2017) Performed By: #### 1 [id number], [id number], [id number], [id number], [id number], [id number], 2878944, [id number], [id number] ####[facility] (DEFAULT)[address] [place] [address] Transfer Noteon 04-24-2021 Transfer Note [address] [place] [address]. Spoke to Prasad. Prasad said a pillowcase turner will call back within an hour. gave phone number [phone] ext [phone] [Electronically Signed on: 04/24/2021 17:51 EST] Zayda Cagle [Verified on: 04/24/2021 17:51 EST] Zayda Cagle [facility] XR Chest 1 View Frontalon XR Chest 1 View Frontal ONE-VIEW CHEST RADIOGRAPH, 04/24/2021 5:07 PM EST COMPARISON: Chest, 04/13/2021. CLINICAL HISTORY: Chest Pain. SOB, CHILLS, HEART PALPITATIONS SINCE Mar. HX OF AFIB AND HTN. Findings and impression: 1. No acute pulmonary disease. 2. Stable enlarged cardiac silhouette. 3. No acute osseous abnormality. Final Dictated by: Karoline Driver Dictated DT/TM: 04/24/21 5:12 Signed (Electronic Signature): Karoline Driver 04/24/21 5:15 pm Technologist: JOSIE SUTTON [facility] Coding Summaryon 04-20-2021 [facility] NqstjnjbORu4uJj+PGhlYW Q+EP5SRAVxN49olKHpzW9Y I9cXWK0CHVLYHSZXXU7WYI 8pwMK1WSjyO0QplpKo GjcziAFhRI66VMc1EEB6tA wpXQrsqQ7ddLXzB2d8ZeMz EJ30lY49MQrlOTYhTwS2Va ZpbjsgbWFy S7yaVcRuaHZfMor+PHRhYm xlIHdpZHRoPScxMDAlJyBz lYygYD7uIa0cIQYzISAdpR xhcHNlOiBj l1uvVQIaUPuzPB3pmHpcG8 LdeUI0MHMir2d9Ez03uUF+ HWMtIDV4xPahRWreq443Mz Coc8rlLMT8 rPSzERvxPYB3Y34pj5B2MP TuNTGiJXJ6jFR4cZ0viUqa ohldT3WdsPVxUzT1IFE0mN BfjY3nrIcg gbbpoP3cUaq+V14YRC9LUB NLYY9XDnr7F4BgKxmbbYW+ MW70VQJdIW42yHIdkZKkt7 peuQi8PzLe VSZvATP7yGkgOZkld3JbAI DjX29qoSLbe7R4YSAoqMut fVPwYgCbyJQ5aG2qWJyoku glc7ctjxii Vtwht3fwrl05sK33R07iSD hfKUCpACC6PBNrJCAbsZek xz0drY1nNq6+EUcbw4ycl3 wxmAn9CuCw CKGzuuKgiFjrUIN1o0ZaEc 06U4NjgWhbb4SlLwk6gr08 zVRxv7U2rDM8OKtjQVVtrU 7jFKxbSnF0 GPWkAyUpbL08qAFjCDznEd 4hlKigdVqwTQ1yLCZaafuo WGJxlS1jCCEmvPTabZboNL 4wNTBpbjtm r452TmIaNSW9EQTqkIYeB9 AtrB4kQmXsZFDgMXSuN9Gp lQClDUutD476GSfpHcL0DR KrnpSyK0Rq KNLwvOpiPxI3x2Z1Og0Ev4 DnboaeRQN5WMmuDEImSgJ1 ZhUxMzL5P9GcGxv9TBUfmA yoQM7fB9Go HMOdzlcwssoixDK9XKPeLH IufK98oLCnTQsbOy9ic4A8 u122PGFrOJInvP51Ag0glA ogMTBwdCBU gM0cyibfr6uamcnrAeItOM AcTEh1WCg9UFHtjNcuMhEi JNL9CaZ7WSN9vDZtoD5fyG lyqljjaR4o Oyc+U92nrD7wBZK9HOC3pq rnRAWrkiPmEW42US08P5Ga PjwvdGFibGU+PGRpdiBzdH oqDY5bLmZm s8ciw4ZgVJisV9YbTQRgLK sqHdn8GUMhMJG1eCT6bY1n WVRyFKydv5W3xYK0L1Dszl Arch4dj6sl KCOsFQooB29qkHOvs5F8OX PjnBW0NNTzlFdeWkLjaF52 Oyc+EPXxaZzcu0KnFytba2 ebh3aqrOp0 UhAdDZIlqjKviPybVRC0n8 BoHc56E72qCDxqYEQyWSLi CFNuTNMszZdzpp2ajA2eSk 8+PGNvbCB3 fBU6vJ4cLDVfIlQ2QZfnJ9 23EmYdmALfGjwpv5ped4nh aFg6DsOzSJIfkiAsuBmyGV K4e8WjIf39 Q41vHUvmFFMrAWUbHCBjAI JvuRiksg1oqA6sIb0+PC9j d9bixv86xV52mUK+PHRkIH K3sDtpONzc OQLooJ4gCHovSmQ2CFUjQq TmzA18oGGcNLvdGr7nvSgs fIdlLQ3nUBXzwnmii684Oc Dac3xeOWWp wJLoWWbkLCF5S55go4T4DP ZgZTTtQPU8jVE0uC7jgOaa bjogbGVmdDsgdmVydGljYW asZErcB362 IHRvcDsnPlBhdGllbnQgTm PbOEy7J0ShVko4XFGzhRlm ZT2sjXKsYAuhMd1auDlfqM glSG5bBHMg egsgl819PwXpb7fvDCZbnJ LeWYajTAM0H51sd6I0GGZi FSUqRSQ6vJH0uF3hfJzltb ogbGVmdDsg hgBjzKdpPCbeSJknQ185QG RvcDsnPkJpcnRoIERhdGU6 MA76PA66cFMmx5F9lOC9J5 BhZGRpbmct zmqufQE8ZXLhVTOxaZ47Fe 0hzMebTk8hFKMkCDT2ZWWa uVGbI1UzlL0qSfWuCGVjZE FkP0EsiUEc WSevY100UCwvRzS2IZPuxx HoV8VoIWIfuNjuCbU9s3Q2 Fn9OO3X8PU34DH72mJObq6 O9xAN7B6Ab SXWftejytiqyfXX1KFIsTT DxcI18Wk2bdPduNy4fOQDq ZDN7XUOaaCAkL7FasV5oLg AjMDAwMDAw O8LhuEKxGJjgU205CWvjAo R0OAYjjvTqU0UtMIQpqOos FlW2m9E5Kl0DXXa5HG61LR 02eYNxu0C8 qTQ8A9MtWVPsdoqouypexB O4LEKvCQHojW36Dy3ntAtw Sg5pILRjGGI6SOYyfRIwJ7 UijU7oQoJh NLUuQEJbO9UjfXDrFPfqB3 46DXtxGaK5RHScvhOmH2Tv IREtvStbTjU5p1Y5Qm1EET OeFN04SMY0 zSS3HY66QY29W2HyLdnghE FibGU+PHRhYmxlIHdpZHRo MRlwOCIyAqPmrBadXC1mPu 9yZGVyLWNv xQdcxQQeOnBwy8kxUBMwHC ocPE3cdVdxZ1UtcZL6LONn s6k1Eo37Q36bL0DysPE+PG LoySG9lDF8 uA4yKnSaCwS3ZKylA122Kz QeyVIrGsygc1uyl8msaZs6 MwD4RCCbfsSlfQoxYHR6r0 JiZm01N44s IHdpZHRoPSIxNSUiIHZhbG qzyb7ciG2mQx6+PGNvbCB3 dPG2dN1dFaKvIdX6FHopS6 49InRvcCIv Zrywb5orp7zurUo1LgMkPB AktaIxxVmkNIP9e8VjWk34 G3AcvQwan4TxAqa9pd12wW Xex9G3uVZ2 K4WePGAbbfizpHXqwWpaAK 3kRKRtbsmkCLMorB1yAFXi P2c7JpQcTiY8KDbvF3Jlkx T4JITuiSGk VDasJQB0U63bo8H6WCTjAA ZkFGJ8mII1cF9ayPlxjihs bGVmdDsgdmVydGljYWwtYW ssL684MNDu nXjnQFOjrT3kSVAwwCIjaG llQU2eXXNtfjkiLxeQFTaA LCBLVVJUSVMgTDwvdGQ+PH PgMKV7wCha POixZQIfkO3tWPFfY9g9Ss UoXtQ2GFogW2SqHPHhjaxn Aw34rN7xTpYwPsE1VAefC5 UzgyX3LDPq hPJgQUppZXT6V60og4W5ZA WaBGFiALL9iUC3qR3cwXhv bjogbGVmdDsgdmVydGljYW nsOWuxH327 QKKcqNqcChN6JtK8SpX8Bk X7O4OqPxu3IBWzjQpkOR7y sSAdLTaiNz6uaKwpyFsqYN 4wNTBpbjtw OICtmG7cOXQqkUPagVnxHS 2jBFSaqhlth735JwXeWVQ8 KQMxiFAtF8ZmaW8eOvCiXG LdJWMtP8Mw zBQiVPaaJ331LKlnOkW4JV UalwRxU0RqXRDkwLueRrW0 k3F5Xs07OlXPVXRqpgccxS Q+PHRkIHN0 iFirNBykKZExjA2oXGJcY1 p7JzCsZvM0DGzcR7LoWNFd qplbRy62sI4bPcSzCoY7BF dfL3QwutU2 BCExeWVbIRylKNK3G61cd5 X1KMVjCZPgQGA3aLQ7jS1g bGlnbjogbGVmdDsgdmVydG ljYWwtYWxp G198VXPjvWddAu0VBET7U9 HxLzx4WBZahSprEA3aeGOq BMpyTg4jfEsidFvbJG9mNY BpbjtwYWRk eM8uROLvdHQpaNqgZH8rSQ Latfind892QiUfOSR5CUWz cBZsP6HkfI3aVxTiOUHbOY IcQ4JayKDh XUylM931RBizMsK9SYSust MjL0PaHTXcgAdzHmH5a3D0 Ia7ITbCsvlFuzAbtmgwarW Q+YM97sg13 N4XaSajxNca9HCKnODF2wY R2bW5yBLWaCEyqt7S8cJZ6 R4MfsiTgjn0df0rrNHNrOU crS94pbLXo g6Y8YXUmdKW7RYMrsNowAl FsnZ06Jcu+MQShrLfdq6Mv Iokvb5ycr1soaSq5BsTlJE IgdmFsaWdu UFE4t3QlDl79K87eTIndOH TlUPLpKEKrORLhxMamus4e nW9sZf1+DBQwzOQ0vGA4fH 0kWiIrVxS8 QDulF120RpRmlKGvGrjgf1 abi2vmtDi3CcNaBAIsavUr eNkqIVH9x7YmAi73U1HrbL olp0HpDkr8 eg87pDQvx6N8dCO2Q1FcEO XvbjfzvLDhyOfhBN4kJIXi obfeFEFkfF5ySPCoX7b6Oh UgEdO7YQqw J6DexiW3WKKbeNIaIOMiiW QUvB2hnilnd6ffstprFlBy BHNqOGs3YVe1ACQxsMhkRe DcXJO8KeR6 VMX0nAZqsV4vqQvknvqfoO 9wOyc+VMn4e5jqpFJvWY9x bQN4UU90JP15aSAqe4O7lC Z1A4HmATXx yqeprmhtdCS7QSCtVZIdcV 09Bn8mjPxjWo4iTOCpJPN7 ETJkaGXaE9DvaM8nYpKlKA UkHWHvK4As xCKrCOrkZ846IQjsBbB9VA VbkwEdY2PcKEGuzSpzAwV3 b7B1Fu1VJP93RU37RY46iM Okn8M0oOY5 A8XhUOSvprrrqicomEP7MU TrHXAylO79Ds4hgKurVj1g GNEvVEP8ZNLseDAmZ7QzyP 9yOiAjMDAw ZELaH7UodZXjFQcnY097BE krIhW2MMLsllOdD3IiDDJr tLbaYaP5b4N1Pd9NPo56EU 86PW31xYQu c4V6lAQ1E8FnXMNqqtflcj nzhKU0HAFmEGBfdY27Pm4a sGzoNi4gQLFwCSA6BQBisT DmK0AzcC4j OtGuYVJrAXDpX5IvpRQcNF tkT837HZujUoC7EUAvpmMp M6HcWTQauQwyRfY5d2X8Hp 4YHWoaemt5 Q4CgCxyniPR+ON76TPVaJK 56wTMwlDFle2pljQd6VwXy RXBjMZF3dZfbVYexw5FsRZ ToG23gzPIz c2U (more content not included)... Normal [facility] C Bloodon 04-19-2021 C Blood #2 set of blood culture L (AC) draw at 1936 [email or web address] No growth at 5 Days [facility] Comment on above: Performed By: #### 1 [id number] #### [facility] (DEFAULT) [address] [place] [address] C Blood #1 set of blood culture R (AC) DRaw at 1935 [address] No growth at 5 Days Normal [facility] Comment on above: Performed By: #### 1 [id number], [id number], [id number], [id number], [id number], [id number], [id number], [id number] #### [facility] (DEFAULT) [address] [place] [address] Coding Summaryon 04-18-2021 Coding Summary HTMLBase 64 FgpfykoeSOu0gIz+PGhlYW Q+PV1JQGTyY78eoOKrpX7C G1yNJV6XQQVBFQDPSW9EGD 3ufCR0CEiwM8WufaUa BjdcpPNuAE77PBc4BXU8wT vaIAkbsO0baUSkX5i8LmCn CS58dD32WBxdYNXhNbD2Ud ZpbjsgbWFy V5stAoBefDEsYdq+PHRhYm xlIHdpZHRoPScxMDAlJyBz iLvyZJ1mCr3vZTYbZTHafD xhcHNlOiBj b5gsDULzNVkyVL4amNnaJ4 JwcSR7DRWgf4e9Tp25qQI+ BOOjKTZ5zOtcYWfmc271Le Hrr8bnZVP5 qSJrGTcbFAX2R84tz7L4RI LpLYPbDBD6aHJ5sK7rcCqy sazwM0XqsVUnJeA4JUR6dS UiaK0ovNkp fbjqzE1lVzx+S49LYT1ZQX FYBD0NRps1E8SgYzzggFS+ VM04SUDxWY94vHNclEHfb5 tuiNm6RxOd RUNdRBE7gMkiOJzgc4NoHV XeM14xnQMoj9N8AHYpySpo bDUfMsBeiFS0mC4tQDephj iwb7adpjhh Ommdp6nwni91uQ07R14lYH tsILTjQOK8DWDtRPCkeOeb xp2rgD0sRt2+KWrjo8kxy2 jugGl5JuQe SNPwytJudIatIUO8j9TiXk 57V4XarSwks3KlIiq1ec17 nFJbl2N5oNI1BWwfFHFtvA 1cFIhzIpB5 HFFvOmVkhQ61nMImDHtjAy 1edLimaImvHQ2nUJUagfvc TEVkzZ6rVMVzfQIovHgdXM 4wNTBpbjtm a541JdUpNHL3UFJpsGSuY9 KcsB1cHmMiKAMkVRBaQ1Cj xYIcFPmqM884JEjdFzC2LW JnyaNrS0Tc JUUezNzaLuE8p8S6Jy8Gd3 BfusglAUZ2KOtuUDSmDnW7 JvAaGkN3G0FqNqq8JBAxqF lhOP0bD4Yk VCBntipgewrfjBS6BLAsGO BelT83sCHwISlvVn8lo5X0 n445RMRbJVGtuW92Ww3jjW ogMTBwdCBU qW9thhjjf2mhbephXlHiBU YtULi9ZWy8YCDmhQwqCoDd KTG2NsR8OEE4eMHmbZ0cpF khyyttiH9o Oyc+E48etX7bREO8TEC1ik opNFJuztKwAO18DK46L7Om PjwvdGFibGU+PGRpdiBzdH ldSE6uKcRs u7qei1PzWTwuX5QtIDOjAY hnBid5KIVqZWT2yBF7yV5u ELAgJMlgp1O0kNY6N3Vuuj Cxae2ml0af PYTcNXubK14ffVRgb5F1CW LclDE2CFLgkQmhYmWplE84 Oyc+FOApfCpja8OmEwvfz7 xea9iqaFv0 FaAlEJXqqdSzpUjwOLC4b3 IhNv78C15yFIpiSRZlIZCg WSNbUBDbuXsytk6joM3vRe 8+PGNvbCB3 yZO5bB7nCSSrMxE7PBcrY4 16CoHxfOWgMvbkj4jla3xp bKy1TlLqDADlsgNehQprQO E0p7SePe86 Z67rPLybFZMyRROiXNHfKU XkrQslji9wiT8cGy0+PC9j w3qyxi46zY38tCX+PHRkIH W7rJfbGClc CWYyqS7bHOlvUuC4EHFnDf BugZ76oRZuHZibOm5qtRzg oJmqUG6iGAVgzirpc259Fr Vbr9edKQEy kCMrFXygNWH6D35sm0Z4IJ IsGGJeIXB5nVE5dR8vcXvx bjogbGVmdDsgdmVydGljYW hkZHwkE403 IHRvcDsnPlBhdGllbnQgTm JiYGz6D1NhJta3CFZoyYjw VP9wtIBzUXrsHc5vhMnarY ytGF6lPNMy uvohy300UqBat8qzDTNngC ViSZopWNY3W01ax8D1UYPh VADmXVL6nAQ8bJ3dvUutpa ogbGVmdDsg vsOdgOgyTCccWEleX359MB RvcDsnPkJpcnRoIERhdGU6 MY90OI83mXGoq0O3yOO9Z1 BhZGRpbmct llzldPX1XYLfFZLrbZ17Nt 4ggScmSr0iTYFaDFQ7WJUj lKKlT1YevP8fAnImYAEuNW VpP3VcnSJp MTemR294SZpbLmI3XUXqsq KrU5FzUXJupQlpOoU6j0N1 Li2ZW2V8JA57MT01xRVeb5 E2uON1G0Gu SASvdexhawwubLT1JQAdMT GrvT11Iz1ynQzgPn3pHBZt KYA7SLDyfFQyU9VrqL4eOp AjMDAwMDAw U6PzxOYtHAktO436SFuoOm C6RVRvhbYrD0TpPBRqvMgz MxS6b3K5Cr7XDYd1ZI72UF 96kTHnp7B6 uYT5R7OhXWXnzpnlplqomG P9QZXpECYmtE48Yx9njZsr Ub6bZHClCGU6NRTefUVaD8 WbjI6sYcUl JMWdLRKgL0FndFDjMZbnC7 92WGiyIsX4WMFaptXsZ6Kx FDPbsAorXoE3s0Z6Sw8MCH UgWN45AQS0 zES4EG24KR14G2CcEnfldT FibGU+PHRhYmxlIHdpZHRo MWbuLMIcDvUcjUkwAL1mFk 9yZGVyLWNv rWhzrOGyVrRcq0uaDWVqXE rhIG8qcVziV2JjuQG3GTRf v7h5Av95W33qS9AweVY+PG NkuKV8fDH0 nM5xQuUlKdA0NPxzG149Mb TnxIAyQcqpz0ffg4qhzXk1 DkL4ZFFsmqZhqOkyJBV8k1 FaFt68E65s IHdpZHRoPSIxNSUiIHZhbG kdsy0umX9oYy9+PGNvbCB3 iII3nX1lIsSxRuL1CPgiC7 49InRvcCIv Whbit1mix4wjaFi6ZbXqNO DzvnGqwGkoLDO5w1FpVv31 O2WphAupr4DpZgs6cv73jZ Xdc6R0yTE6 T4ZzNRGmabchvWTduOebDT 9sKNAordgmQZXgjT9eAKTt F5d1AxIhHmQ2PLbnN0Dlpi G0BAMysWCs EJkaVJQ3M50ja9S1ZCIsHP GrEWX3cNJ0wZ4rkCqzwrsa bGVmdDsgdmVydGljYWwtYW vvO113CRMj lOcaRMBlaD7hIAUwgVLxsH bzQD3eJIOcgubbGnjHQJrO LCBLVVJUSVMgTDwvdGQ+PH XfMCL9qEhf LSqmBNMajY4qRZApA1d8Af EmVfA2BOcjM2ToHJOlewln Ub88oA2fUpHvQkR1QJjjJ6 OcslR1EZXx zFPrGFlaIWP8X55bf2R0ED WvRQPsTAQ2jZG1xL7dsXsk bjogbGVmdDsgdmVydGljYW mwLYluG976 ZAMmjRlaHwF9RpG7NaL6Jw Y9B1HvTsb6YMJzsXesWG9q jTPoALubMz3adQblaGqrYC 4wNTBpbjtw BBFrkT2pWRLnrIPxeClzZN 5fSKOhvwshk388RxEpUXP1 OWYcnNNeO6UacA6cNgUcCH GcCVNtO8Ji yFUvORkuP169WZbwBcK4NJ XsnlFrM1IbMUTiqBozEgM7 v6O3Fm48KwJQWEMwnqfwbR Q+PHRkIHN0 dFcoQImgIKWlbR8yYWMyL6 d1KjZjArT4PBmmN0IeFYOp bszmEk94cX7yXxAzCaL5FC vbY1GvhuG3 FFXerTXzCTufJHR3W27vf9 J1QYJsCGAzACT1fJM1lJ9a bGlnbjogbGVmdDsgdmVydG ljYWwtYWxp E101VHTgfYjcGf7XFMA5H0 TmMyb7RQDliJypEZ8iwAWf QKaxJd0pnWiktIowGM7xAT BpbjtwYWRk xU1uBNJapDSfdSzvGM7tWF Wnyfxmr599BxXaMIF7IUSq kJDuQ6WjeF2dQsVuWEObAN TnF2EvxEFy DYwuS010COzhNlA8JHShlr FdG9BeDQJxeWzyGqG3j7Z2 Nf4YLXjfnOD+PG33uv57Q4 RhYmxlPjx0 VJUzMKI8yRW8yX9iHEGpCG yex9T0zJY1Q2JfweZnzx5z v7kdEVKyURkhZ44hfNLtm2 H6LWOozPT8 FWTicPodEiLdaP62Zjb+PG XafQvak7MmSjmxh6rwj7ov pLm2VyLqIFYcchCzwTkfAV X8v1AbFi16 Y25cLFsvRBRhJHKjJISkUC GrnKdnet4lfP3yLq9+PGNv xBJ1sCR5xK9rYsPrVmL4BR gzI988JaRu tJYuSiwby3cpf8srmNo0Ny EqPHWwjjVloSjkTRB9w3Ru Iq73W3EgdIojy6PbDmu3to 10kUWze0E2 wTX3X0BwMXRksnywtEIkrB duPQ1tTRCyozehBLQzfV0h UCHgA7o3VnPzFgU6VSpmC0 VkcbH2UBDj gLYtSIUcuUHKhF3tgccyi6 heyxbuTeGnUMOzYFc2CTy4 OWUawJtsLgIyIRU1VrN5VX H8dSZvwP2t xDtfiorkkO0qSwd+UGh5c2 xbzSDsLK6cjUC6UZ17MS43 kSLjj8Y7lZS3V4SgADRaym ctcmlnaHQ6 XBSmSITdrS65Rp6raPogXu 7nMXSdHLZ5JQRtcJYaX5Eu wW5vSgNtBRIuQXKnW1KqcT AmWYrcZ099 SSxqHcI2YREsgbSxX5RxSM JwoCmeReB6o6B6Fm0UQO08 IW84HN26qVWzu3Q4fBH7T3 BhZGRpbmct hpvugRO3REBiVDJcdG45Ua 4iwQdjQv6zAVFmUZN7NUBq sNYjE6NpeN1wLyYvBUVjDI XaB9LarAWv SZjlH761KRtpAlT6NAYdgg LbS5UpTAUpdTllVxO1i8S4 Jg3OWj59HK16SS24yYKpg1 B5yRJ3A9Tm FKMdruveabotkKE3EUKwHK YuqJ06Oo2ihBxuMe2hESEj XLR3ALOigICoW6BzuI3nCu AjMDAwMDAw Y2FrlQUmLQoqO092UFxgHv J7YYXftgKsF3DgAQZyhNhi PiV0k6S7Hr3DEZbawjf7H8 RkPjwvdHI+ KD41YDNuHT93pRPktMPnp8 fbsXb6GcHcCOIoIHN5gBsu CExvb0KzAWEgB32efWSlv5 S8XTKiiXrg cHN (more content not included)... [facility] Consent Formson 04-16-2021 Consent Forms [id number]#1.0 0OTGTIFF [facility] ED Clinical Summaryon 2021 ED Clinical Summary [facility] - Emergency Department [address] [place], [place] [id number] ED Clinical Summary PERSON INFORMATION Name: JOSE HAYNES Age: 46 Years Sex: MALE : 1975 MRN: Acct#: Visit Reason: Cough; Shortness of breath; AFIB W/ RVR Arrival: 04/13/2021 18:31:14 Discharge: LOS: 000 04:18 Check In: 04/13/2021 18:31:14 Checkout:04/13/2021 22:49:11 Address: [address] [place] [address] PCP: Provider, None PROVIDER INFORMATION Provider Role Assigned Unassigned Sridhar Slaughter MD ED Provider 04/13/2021 18:40:29 Eliseo CISNEROS, Winter ED Nurse 04/13/2021 18:53:11 Beatriz Pryor SCREEN EXAMINER Nurse 04/13/2021 19:34:48 Gopi Perez DO ED Provider 04/13/2021 20:08:22 VITALS INFORMATION Vital Sign Triage Latest Temperature Tympanic Temperature Temporal Artery Pulse Rate 130 bpm 121 bpm O2 Sat 96 % 96 % Respiratory Rate 14 br/min 18 br/min Blood Pressure /49 mmHg /49 mmHg MEDICAL INFORMATION Medications Given: Medication Dose Route albuterol (albuterol 0.083% inh solution) 2.5 mg NEB cefTRIAXone (Rocephin) 1 gm IV methylPREDNISolone (SOLU-Medrol) 125 mg IV digoxin (Lanoxin) 0.25 mg IV Push dilTIAZem (Diltiazem IV Solution) 8 mg IV Push dilTIAZem 125 mg + Sodium Chloride 0.9% intravenous solution 100 mL (diltiazem additive titrate 125 mg + Sodium Chloride 0.9% intravenous solution 100 mL) 125 mL Initial Volume 10 mL/hr IV Left Antecubital Fossa dilTIAZem 125 mg + Sodium Chloride 0.9% intravenous solution 100 mL (diltiazem additive titrate 125 mg + Sodium Chloride 0.9% intravenous solution 100 mL) 125 mL Initial Volume 10 mL/hr IV Left Antecubital Fossa dilTIAZem (CardiZEM IV) 5 mg IV Push furosemide (Lasix) 10 mg IV Push Allergy Information: No Known Medication Allergies PHYSICIAN DOCUMENTATION Patient: JOSE HAYNES Age: 46 years Sex: MALE : 1975 Associated Diagnoses: Atrial fibrillation with RVR; Cough; Shortness of breath; Bronchitis, acute Author: Sridhar Slaughter MD Basic Information Time seen: Date & time 04/13/2021 19:08:00. History source: Patient. Arrival mode: Private vehicle. History limitation: None. Additional information: Chief Complaint from Nursing Triage Note : Chief Complaint 04/13/2021 18:43 EST Chief Complaint patient is SOB onet 2 weeks ago with a cough. Has been dx with pneumonia. Does not feel better after zpack. . History of Present Illness This 46-year-old gentleman had a cough, since 03 April. He had negative flu negative Covid at that time placed on Zithromax and is really no better. He continues to cough, there is mild wheezing. He does not have COPD nor does he smoke. There is no chest pain. There is no rash. There is no known exposure and he is vaccinated for Covid. Fever is not documented. The cough is very irritating to him. He states no hx of asthma, no inhaler use; states non-productive cough; denies chest pain, states he sees cardiology at [facility], has had af-f for a long time, has had ablations, is retired ; There is no hx of family cardiac disease. He is on Xarelto for history of atrial fibrillation Review of Systems Constitutional symptoms: no Fatigue, no fever, no chills. Skin symptoms: Negative except as documented in HPI. ENMT symptoms: Negative except as documented in HPI. Respiratory symptoms: Negative except as documented in HPI. Cough as above Cardiovascular symptoms: Negative except as documented in HPI. Gastrointestinal symptoms: Negative except for documented as above in the HPI Genitourinary symptoms: Negative except as documented in HPI. Musculoskeletal symptoms: Negative except as documented in HPI. Neurologic symptoms: Negative except as documented in HPI. Remainder of 10 systems, all negative except for mentioned above Health Status Allergies: Allergic Reactions (Selected) No Known Medication Allergies . Medications: (Selected) Inpatient Medications Ordered Ativan injection: 1 mg = 0.5 mL, IV Push, Once diltiazem additive titrate 125 mg + Sodium Chloride 0.9% intravenous solution 100 mL: 9 mg/hr, IV Documented Medications Documented Xarelto 20 mg oral tablet: 20 mg, 1 tab(s), PO, qPM, 30 tab(s), 0 Refill(s) metoprolol: 0 Refill(s) sertraline 100 mg oral tablet: 100 mg, 1 tab(s), PO, Daily, 0 Refill(s) . Past Medical/ Family/ Social History Medical history: Resolved Irregular heart beat ([id number]): Resolved. Laceration of eyebrow and forehead ([id number]): Resolved. . Social history: Social & Psychosocial Habits Alcohol 04/05/2021 Alcohol Use: Never 04/13/2021 Alcohol Use: Never Substance Abuse 04/05/2021 Substance use: Current Type: Marijuana 04/13/2021 Substance use: Current Type: Marijuana Tobacco 12/17/2017 Smoking tobacco use: Dips tobacco 04/13/2021 Smoking tobacco use: Never (less than 100 in l Electronic Cigarette/Vaping 04/05/2021 Electronic Cigarette Use: (more content not included)... [facility] ED Patient Education Noteon 04-14-2021 ED Patient Education Note Education Materials [facility] ED Patient Summaryon 022 ED Patient Summary [facility] - Emergency Department [address] [place] [address] PATIENT DISCHARGE INSTRUCTIONS Patient Information Name: JOSE HAYNES Age: 46 Years Date of : 1975 Reason For Visit: Cough; Shortness of breath; AFIB W/ RVR Arrival Time: 04/13/2021 18:31:14 Primary Care Physician: Provider, None Attending Physician: Marry Lake MD Comment: Visit Diagnosis: Diagnoses This Visit Atrial fibrillation with RVR (I48.91) Bronchitis, acute (J20.9) Cough (94061512) Shortness of breath ([id number]) Prescription Information: If you have been given a prescription for narcotics, seek immediate medical attention if you have any difficulty breathing or any sudden status changes such as confusion and sleepiness. If you or anyone you know is experiencing suicidal thoughts, mental health, alcohol and/or drug addiction problems; contact the [facility] 04/11 Crisis Hotline -Oncl 4SQOC bi 302753. If you received any narcotics, sedation, or any other medication that causes drowsiness for the next 24 hours, unless otherwise directed: ? Do not drive a car. ? Do not operate machinery such as power tools, lawn mowers, drills, sewing machines, or stoves ? Avoid alcoholic beverages and drugs for allergies, nerves, or sleep ? Do not make important personal or business decisions or sign any legal documents Medication Information: The exam and treatment you received today in the [facility] Emergency Department were for an urgent problem and are not intended as complete care. It is important for you to follow up with a doctor, nurse practitioner, or physician?s ict sales assistant for ongoing care. If your symptoms become worse or you do not improve as expected and you are unable to reach your usual health care provider, you should return to the Emergency Department, we are available 24 hours a day. For those patients who have received Radiology results, the interpretation of your X-ray as given to you by our Emergency Department physician is only a preliminary report. The Radiologist will review your films and if there is a change in the diagnosis you will be notified by phone. Please make sure you have provided a working phone number so we can reach you if necessary. In the event that you had a lab culture while you were a patient in the Emergency Department, you will be notified by phone if there is a need to change your antibiotic. Please make sure you have provided a working phone number so we can reach you if necessary. [facility] Emergency Department has provided you with a complete list of medications post discharge. Please inform your net c developer/provider of your visit and for further instruction on these medications. Any specific questions regarding your chronic medications and dosages should be discussed with your primary care physician(s) and/or pharmacist. Medications to Continue That Have Not Changed Other Medications metoprolol rivaroxaban (Xarelto 20 mg oral tablet) 1 tab(s) Oral once a day (in the evening). sertraline (sertraline 100 mg oral tablet) 1 tab(s) Oral every day. Visit Information Allergies: Substance Reaction Symptoms Type Comments No Known Medication Allergies Drug Vital Signs: Vitals and Measurements this Visit (last charted value for your 04/13/2021 visit) Vital Signs This Visit Temperature Oral: 36.9 DegC Apical Heart Rate: 144 bpm Peripheral Pulse Rate: 121 bpm Respiratory Rate: 18 br/min Systolic Blood Pressure: 143 mmHg Diastolic Blood Pressure: 93 mmHg SpO2: 96 % Oxygen Therapy: Room air Measurements This Visit Height/Length Dosin.880 cm Height/Length Estimated: 182.880 cm Weight Dosin.990 kg Weight Estimated: 92.990 kg Problems List: Problem Onset Comments Atrial fibrillation Hypertension Patient Education Viruses or Bacteria What?s got you sick? Antibiotics only treat bacterial infections. Viral illnesses cannot be treated with antibiotics. When an antibiotic is not prescribed, ask your healthcare professional for tips on how to relieve symptoms and feel better. Usual Cause Illness Viruses Bacteria Antibiotic Needed Cold/Runny Nose NO Bronchitis/Chest Cold (in otherwise healthy children and adults) NO Whooping Cough Yes Flu NO Strep Throat Yes Sore Throat (except strep) NO Fluid in the middle ear (otitis media with effusion) NO Urinary Tract Infection Yes Antibiotics Aren?t Always the Answer www.cdc.gov/getsmart GET SMART Know When Antibiotics Work [place].S[place] Department of Health and Human Services Centers for Disease Control and Prevention December 2013 [facility] Plan of Care Noteon 04-14-19 22 Plan of Care Note At 0836, patient notified this nurse that he was going to leave AMA. This nurse explained all risks of leaving the hospital AMA including worsening of condition and possible and encouraged pt to stay for medical care. Pt continues to state that he is leaving. Pt states understanding of risks of leaving AMA. Pt signs AMA form. IV's removed per pt request. [facility] Instructed pt on returning to ER for worsening symptoms, shortness of breath or chest pain. Encouraged pt to follow up [place] with [facility] medical team [facility] the [place]. Pt left at 0841. [Electronically Signed on: 04/14/2021 09:50 EST] Madie Clayton RN [Verified on: 04/14/2021 09:50 EST] Madie Clayton RN [facility] Telemetry Stripson 2 Telemetry Strips [id number]#1.0 0OTGTIFF [facility] Telemetry Strips [id number]#1.0 0OTGTIFF [facility] Telemetry Strips [id number]#1.0 0OTGTIFF [facility] TnI HSon 04-14-2021 Troponin I High Sensitivity 10 pg/mL Normal <=20 [facility] Comment on above: Result Comment: Male Baseline Delta 1Hr (Note pg/mL=ng/L) <20pg/mL 50-60% >20pg/mL 20% Female Baseline Delta 1Hr <15pg/mL 50-60% >15pg/mL 20% Other Baseline Delta 1Hr <18ng/mL 50-60% >18ng/mL 20% ([employer] Guidelines November 2017) Performed By: #### 5 [id number] ####[facility] (DEFAULT)[address] [place] [address] .Auto Diff 04-13-2021 Auto Daniels % 8 % Normal 04-25 [facility] Comment on above: Performed By: #### 1 [id number], [id number], [id number], [id number], 34099001, 6002649955, 8373201053, 2106353, 2455442 #### [facility] (DEFAULT) [address] [place] [address] Baso Abs# 0.0 x10 Normal 0.0-0.2 [facility] Comment on above: Performed By: #### 1 [id number], [id number], [id number], 6854115585, 72157093, 3510665611, 1821601985, 5430112, 1985305 #### [facility] (DEFAULT) [address] [place] [address]03 Basophils/100 WBC (Bld) 0.6 % Normal 0.2-2.0 [facility] Comment on above: Performed By: #### 1 [id number], [id number], [id number], [id number], 70169589, 7741370137, 4911180568, 7754009, 6168388 #### [facility] (DEFAULT) [address] [place] [address] 21033 Eos Abs# 0.1 x10 Normal 0.0-0.4 [facility] Comment on above: Performed By: #### 1 [id number], 2046099, [id number], [id number], 63970919, 9777517750, 7329162725, 2290450, 9116218 #### [facility] (DEFAULT) [address] [place] [address]693 Eosinophils/100 WBC (Bld) 1.4 % Normal 0.9-4.0 [facility] Comment on above: Performed By: #### 1 [id number], 1548829, 1658005434, 1424333367, 24004738, 2688974129, 5115605141, 9545899, 2410252 #### [facility] (DEFAULT) [address] [place] [address] 41142 Lymph Abs# 2.0 x10 Normal 1.3-2.9 [facility] Comment on above: Performed By: #### 1 [id number], 4125555, 6565472527, 7664211796, 48842977, 0038790929, 7759005053, 5332335, 1873553 #### [facility] (DEFAULT) [address] [place] [address] 72081 Lymphocytes/100 WBC (Bld) 26 % Normal 14-48 [facility] Comment on above: Performed By: #### 1 [id number], 6384141, 7373816528, 6292928649, 34182489, 4535167890, 4359593985, 7946028, 1906838 #### [facility] (DEFAULT) [address] [place] [address] 19276 Daniels Abs# 0.6 x10 Normal 0.0-0.8 [facility] Comment on above: Performed By: #### 1 [id number], 3509894, 8029661069, 1622806956, 36946321, 4076111834, 3169346107, 3502393, 2226005 #### [facility] (DEFAULT) [address] [place] [address] 51901 Neut Abs# 4.9 x10 Normal 1.5-9.2 [facility] Comment on above: Performed By: #### 1 [id number], 7040690, [id number], 5182438694, 68222040, 9136400190, 9110285823, 1520771, 4776302 #### [facility] (DEFAULT) [address] [place] [address]76 Neutrophils/100 WBC (Bld) 63 % Normal 44-88 [facility] Comment on above: Performed By: #### 1 [id number], 0658022, 1584328706, 3319844048, 87726556, 7397098450, 2823384402, 3101647, 0587756 #### [facility] (DEFAULT) [address] [place] [address] BNP.on 04-13-2021 Natriuretic peptide B (Bld) [Mass/Vol] 638.0 pg/mL High 0.0-100.0 [facility] Comment on above: Result Comment: BNP results greater than 100 pg/mL are considered abnormal and suggestive of patients with CHF. Higher BNP concentrations measured in the first 72 hours after an acute coronary syndorme are associated with an increased risk of , myocardial infarction, and CHF. Performed By: #### 1 [id number], 2262778, [id number], 1954914081, 26059409, 5078013900, 0223441507, 5595078, 2437891 ####[facility] (DEFAULT)[address] [place], [place] [address] CBC w/ Auto Diffon Erythrocyte distribution width (RBC) [Ratio] 13.0 % Normal 11.5-15.0 [facility] Comment on above: Performed By: #### 1 [id number], 2920772, 0155863498, 6718137715, 18642840, 6375026885, 7703463883, 8321134, 6048549 #### [facility] (DEFAULT) [address] [place] [address]489 Hematocrit (Bld) [Volume fraction] 43.5 % Normal 34.8-51.9 [facility] Comment on above: Performed By: #### 1 [id number], 3279352, 1313018189, 0751188086, 77539964, 2552066743, 0249364015, 3936715, 0918058 #### [facility] (DEFAULT) [address] [place] [address] 65557 Hemoglobin (Bld) [Mass/Vol] 14.2 g/dL Normal 11.8-17.7 [facility] Comment on above: Performed By: #### 1 [id number], 9689990, 8336418146, 2706356921, 60105146, 9038919812, 2286996204, 0341307, 6506659 #### [facility] (DEFAULT) [address] [place] [address] Instr WBC 7.7 x10 Invalid Interpretation Code [facility] Comment on above: Performed By: #### 1 [id number], 0745334, 2279591151, 9167695206, 14741176, 1285051935, 3849155027, 4401191, 7590367 #### [facility] (DEFAULT) [address] [place] [address] 11893 Man Diff? Auto Normal [facility] Comment on above: Performed By: #### 1 [id number], 7853178, 3136275674, 1910195137, 33052222, 7668135395, 9927990319, 5416392, 9789357 #### [facility] (DEFAULT) [address] [place] [address] 43572 MCH (RBC) [Entitic mass] 31 pg Normal 24-34 [facility] Comment on above: Performed By: #### 1 [id number], 2592957, 8130253433, 1494096310, 20301501, 7591314489, 2444901832, 7538811, 8022910 #### [facility] (DEFAULT) [address] [place] [address] 23536 MCHC (RBC) [Mass/Vol] 33 g/dL Normal 26-37 [facility] Comment on above: Performed By: #### 1 [id number], 4138682, 7160016035, 2497423737, 93594135, 5753430570, 2662654498, 2003415, 2077865 #### [facility] (DEFAULT) [address] [place] [address] 76615 MCV (RBC) [Entitic vol] 94 fL Normal 81-100 [facility] Comment on above: Performed By: #### 1 [id number], 5841388, 6153911993, 8142114825, 46766112, 7145223303, 8470309539, 8846975, 3198927 #### [facility] (DEFAULT) [address] [place] [address] 10872 Platelet 301 x10 Normal 138-427 [facility] Comment on above: Performed By: #### 1 [id number], 2567968, 5784723401, 6569275104, 21090224, 8439072562, 4630175805, 8979878, 4951455 #### [facility] (DEFAULT) [address] [place] [address] Platelet mean volume (Bld) [Entitic vol] 12.1 fL High 6.3-10.2 [facility] Comment on above: Performed By: #### 1 [id number], 1373853, 3931167549, 6285836391, 58100157, 3387208231, 6126615827, 8118046, 2003824 #### [facility] (DEFAULT) [address] [place] [address] RBC 4.64 x10 Normal 3.70-5.30 [facility] Comment on above: Performed By: #### 1 [id number], 5216561, 1095023349, 0262055581, 64516853, 0521004662, 0207140309, 6588365, 2520759 #### [facility] (DEFAULT) [address] [place] [address] WBC 7.7 x10 Normal 3.5-10.5 [facility] Comment on above: Performed By: #### 1 750444243, 3529914, 1206197437, 5214736776, 41236101, 5486162260, 4525154144, 5024870, 5972613 #### [facility] (DEFAULT) [address] [place] [address]178 CMP [employer] 04-13-2021 eGFR Non AA >60 Invalid Interpretation Code [facility] Comment on above: Performed By: #### 1 [id number], 5565980, 7956686485, 4352774481, 50484724, 8056050525, 8758132627, 9056965, 0253414 #### [facility] (DEFAULT) [address] [place] [address] 35381 eGFR AA >60 Invalid Interpretation Code [facility] Comment on above: Result Comment: Tram Operator rodger Kidney disease could be indicated at eGFRs of less than 60 ml/min/1.73m2. Kidney Failure is indicated at less than 15 ml/min/1.73m2 Performed By: #### 1 [id number], 7870140, 4734633348, 0597785139, 98943019, 8215681763, 9847367936, 9866603, 7251392 #### [facility] (DEFAULT) [address] [place] [address] Albumin [Mass/Vol] 4.2 g/dL Normal 3.5-5.0 [facility] Comment on above: Performed By: #### 1 [id number], 9118539, 5534509025, 6886007264, 99094539, 5449078668, 9489620611, 5709124, 9736397 #### [facility] (DEFAULT) [address] [place] [address] Albumin/Globulin [Mass ratio] 1.6 {ratio} Normal 1.4-2.6 [facility] Comment on above: Performed By: #### 1 [id number], 3497999, 8397934573, 9347348383, 32922914, 8895419547, 5286035536, 7473474, 1769675 #### [facility] (DEFAULT) [address] [place] [address] 41081 Alk Phos 51 IU/L Normal 32-91 [facility] Comment on above: Performed By: #### 1 [id number], 5231106, 9224798155, 7181126703, 58861972, 2180116654, 6012072701, 9879809, 1585330 #### [facility] (DEFAULT) [address] [place] [address] 61570 ALT [Catalytic activity/Vol] 31.0 U/L Normal 17.0-63.0 [facility] Comment on above: Performed By: #### 1 [id number], 0247735, 9691989189, 5927626510, 39358028, 8689377082, 3567593153, 5422340, 5417808 #### [facility] (DEFAULT) [address] [place] [address] 53088 Anion gap [Moles/Vol] 13.0 mmol/L Normal 5.0-19.0 [facility] Comment on above: Performed By: #### 1 [id number], 7193622, 3906032088, 2734843638, 04177237, 4460041232, 5275883363, 3816255, 2935773 #### [facility] (DEFAULT) [address] [place] [address] 15604 AST [Catalytic activity/Vol] 27 U/L Normal 15-41 [facility] Comment on above: Performed By: #### 1 [id number], 6256204, 4421158891, 2207725472, 23601716, 5637921518, 6682184966, 8380248, 4823842 #### [facility] (DEFAULT) [address] [place] [address] 77988 Bili Total 0.6 mg/dL Normal 0.3-1.2 [facility] Comment on above: Performed By: #### 1 [id number], 5832399, 3636330031, 7240165791, 43001114, 4086413985, 6201294264, 8279323, 5799266 #### [facility] (DEFAULT) [address] [place] [address] 93484 Calcium [Mass/Vol] 9.1 mg/dL Normal 8.9-10.3 [facility] Comment on above: Performed By: #### 1 [id number], 7053143, 9341574805, 4468999971, 42677718, 4781746265, 4831865750, 2242380, 8993798 #### [facility] (DEFAULT) [address] [place] [address] 88231 Chloride [Moles/Vol] 106 mmol/L Normal 101-111 [facility] Comment on above: Performed By: #### 1 [id number], 4682319, 7305658664, 0998278440, 55583799, 3077061104, 4533251743, 8787617, 8033317 #### [facility] (DEFAULT) [address] [place] [address] 82007 CO2 [Moles/Vol] 24 mmol/L Normal 21-32 [facility] Comment on above: Performed By: #### 1 [id number], 2167948, 4910107623, 3863980868, 49601795, 0813170988, 2280116881, 9058372, 4659685 #### [facility] (DEFAULT) [address] [place] [address] 60463 Creatinine [Mass/Vol] 0.99 mg/dL Normal 0.90-1.30 [facility] Comment on above: Performed By: #### 1 [id number], 7362408, 6656659367, 1476053383, 81912230, 4346973373, 0405766130, 6039446, 4518599 #### [facility] (DEFAULT) [address] [place] [address] 34309 Globulin (S) [Mass/Vol] 2.6 g/dL Normal 1.5-4.3 [facility] Comment on above: Performed By: #### 1 585285384, 1366603, 6883809464, 2608942566, 85188442, 8769656752, 0693099513, 7952547, 6895007 #### [facility] (DEFAULT) [address] [place] [address] 89711 Glucose [Mass/Vol] 78.0 mg/dL Normal 74.0-118.0 [facility] Comment on above: Performed By: #### 1 046875349, 3460741, 2728627731, 6198016405, 49989473, 0473321448, 6044909893, 9203894, 0029714 #### [facility] (DEFAULT) [address] [place] [address] 22635 Osmolality 278 mOsm/L Invalid Interpretation Code [facility] Comment on above: Performed By: #### 1 [id number], 5632868, 9584534671, 1635929592, 13251767, 7582758174, 7861999415, 8942935, 0519118 #### [facility] (DEFAULT) [address] [place] [address] 01885 Potassium [Moles/Vol] 4.2 mmol/L Normal 3.6-5.1 [facility] Comment on above: Performed By: #### 1 [id number], 7806704, 9921752319, 6755341535, 02218186, 6998871308, 4533656932, 0055454, 4106800 #### [facility] (DEFAULT) [address] [place] [address] 25655 Protein [Mass/Vol] 6.8 g/dL Normal 6.5-8.1 [facility] Comment on above: Performed By: #### 1 [id number], 8258120, 9394081493, 6314305229, 97546782, 9130139767, 1562326077, 8656564, 2499200 #### [facility] (DEFAULT) [address] [place] [address] 63671 Sodium [Moles/Vol] 139.0 mmol/L Normal 136.0-144.0 [facility] Comment on above: Performed By: #### 1 [id number], 9861732, 0017124151, 7940681266, 46679955, 4533608974, 3667731129, 0801352, 3649209 #### [facility] (DEFAULT) [address] [place] [address] 73958 Urea nitrogen [Mass/Vol] 17 mg/dL Normal 8-26 [facility] Comment on above: Performed By: #### 1 [id number], 4571934, 5089339666, 5293368909, 06394623, 4927562797, 3052829530, 8160146, 6733048 #### [facility] (DEFAULT) [address] [place] [address] 39124 Urea nitrogen/Creatinine [Mass ratio] 17.0 mg/mg High 4.6-16.2 [facility] Comment on above: Performed By: #### 1 [id number], 5778031, 9274250100, 4149896975, 96102262, 1828103208, 0901667564, 7205833, 8096911 #### [facility] (DEFAULT) [address] [place] [address] 88310 ED Note - Physicianon 12-31- 2021 ED Note - Physician Patient: WADE HAYNES Age: 46 years Sex: MALE : 1975 Associated Diagnoses: Atrial fibrillation with RVR; Cough; Shortness of breath; Bronchitis, acute Author: Sridhar Slaughter MD Basic Information Time seen: Date & time 04/13/2021 19:08:00. History source: Patient. Arrival mode: Private vehicle. History limitation: None. Additional information: Chief Complaint from Nursing Triage Note : Chief Complaint 04/13/2021 18:43 EST Chief Complaint patient is SOB onet 2 weeks ago with a cough. Has been dx with pneumonia. Does not feel better after zpack. . History of Present Illness This 46-year-old gentleman had a cough, since 03 April. He had negative flu negative Covid at that time placed on Zithromax and is really no better. He continues to cough, there is mild wheezing. He does not have COPD nor does he smoke. There is no chest pain. There is no rash. There is no known exposure and he is vaccinated for Covid. Fever is not documented. The cough is very irritating to him. He states no hx of asthma, no inhaler use; states non-productive cough; denies chest pain, states he sees cardiology at [facility], has had af-f for a long time, has had ablations, is retired ; There is no hx of family cardiac disease. He is on Xarelto for history of atrial fibrillation Review of Systems Constitutional symptoms: no Fatigue, no fever, no chills. Skin symptoms: Negative except as documented in HPI. ENMT symptoms: Negative except as documented in HPI. Respiratory symptoms: Negative except as documented in HPI. Cough as above Cardiovascular symptoms: Negative except as documented in HPI. Gastrointestinal symptoms: Negative except for documented as above in the HPI Genitourinary symptoms: Negative except as documented in HPI. Musculoskeletal symptoms: Negative except as documented in HPI. Neurologic symptoms: Negative except as documented in HPI. Remainder of 10 systems, all negative except for mentioned above Health Status Allergies: Allergic Reactions (Selected) No Known Medication Allergies . Medications: (Selected) Inpatient Medications Ordered Ativan injection: 1 mg = 0.5 mL, IV Push, Once diltiazem additive titrate 125 mg + Sodium Chloride 0.9% intravenous solution 100 mL: 9 mg/hr, IV Documented Medications Documented Xarelto 20 mg oral tablet: 20 mg, 1 tab(s), PO, qPM, 30 tab(s), 0 Refill(s) metoprolol: 0 Refill(s) sertraline 100 mg oral tablet: 100 mg, 1 tab(s), PO, Daily, 0 Refill(s) . Past Medical/ Family/ Social History Medical history: Resolved Irregular heart beat ([id number]): Resolved. Laceration of eyebrow and forehead ([id number]): Resolved. . Social history: Social & Psychosocial Habits Alcohol 04/05/2021 Alcohol Use: Never 04/13/2021 Alcohol Use: Never Substance Abuse 04/05/2021 Substance use: Current Type: Marijuana 04/13/2021 Substance use: Current Type: Marijuana Tobacco 12/17/2017 Smoking tobacco use: Dips tobacco 04/13/2021 Smoking tobacco use: Never (less than 100 in l Electronic Cigarette/Vaping 04/05/2021 Electronic Cigarette Use: Never 04/13/2021 Electronic Cigarette Use: Never . Problem list: Active Problems (2) Atrial fibrillation Hypertension . Physical Examination CONST: -Well-developed well-nourished ; -In no acute distress. -Vitals reviewed. EYES: -EOM intact, ELLE: -Sclera normal and conjunctiva: clear bilaterally. ENT: - Normal pharynx pink and moist. NECK: -Supple (lacv-hy-zccfs). CARD: -Rate and rhythm: IRRegular IRREG, tachycardic -Murmurs: No RESP: -Respiratory effort and chest excursion with respirations: Normal -Breath sounds equal bilaterally: Mild wheeze -Wheezes: Mild -Rales: No BACK: -Flank pain: No -Pain on palpation: No ABD: -Distended: No -Bruits: No -Bowel sounds: Normal. -Deep palpation: Non-tender -Organomegaly palpable: No -Abnormal masses: No EXT: Gross appearance and use of all four extremities: Normal SKIN: -Good turgor warm and dry. -Apparent lesions or rashes: No NEURO: -Patient: alert -Oriented to: person, place and time. -Appearance and judgment: appropriate. -Cranial Nerves: Normal. -Speech: Normal Medical Decision Making We will repeat Covid, repeat a chest x-ray. Prior chest x-ray showed mild bilateral infiltrates on the . Assessment will be made for worsening and the need for admission by my following physician, Dr. Perez Patient does have a history of atrial fibrillation. EKG shows atrial fibrillation with rate 145. We will give some fluids, dig, Cardizem drip for now. There is no chest pain Orders Launch Orders Laboratory: Troponin I High Sensitivity (Order): Blood, Stat collect, 04/13/2021 20:59 EST, Lab Collect BNP. (Order): Blood, Stat collect, 04/13/2021 20:59 EST, Lab Collect , Launch Orders Pharmacy: [facility] IV (Order): 5 mg, IV Push, Once , Launch Orders Laboratory: CMP Standard (Order (more content not included)... Normal [facility] 04-13-2021 Tube Collected Yes Invalid Interpretation Code [facility] Comment on above: Performed By: #### 1 [id number], 2990080, 1859922694, 2679874831, 36011208, 4383906805, 7973813712, 7376283, 7451357 #### [facility] (DEFAULT) [address] [place] [address] 23324 Magnesiumon 04-13-2021 Magnesium [Mass/Vol] 2.38 mg/dL Normal 1.80-2.50 [facility] Comment on above: Performed By: #### 1 [id number], 1480771, 7978438130, 0614300613, 81839237, 3513160340, 6014177333, 1633794, 6343387 ####[facility] (DEFAULT)[address] [place] [address] 69171 PTon 04-13-2021 INR Coag (PPP) [Relative time] 1.06 {INR} Normal 0.91-1.11 [facility] Comment on above: Performed By: #### 1 [id number], 7968707, 4925660149, 3717531081, 47820335, 5948229165, 0738549173, 9241526, 6595135 #### [facility] (DEFAULT) [address] [place] [address] 07404 PT 11.4 second(s) Normal 9.7-11.8 [facility] Comment on above: Performed By: #### 1 [id number], 8663620, 9003893916, 9899594298, 12608310, 0327275997, 8685808601, 0413886, 3040963 #### [facility] (DEFAULT) [address] [place] [address] TnI HSon 04-13-2021 Troponin I High Sensitivity 10 pg/mL Normal <=20 [facility] Comment on above: Result Comment: Male Baseline Delta 1Hr (Note pg/mL=ng/L) <20pg/mL 50-60% >20pg/mL 20% Female Baseline Delta 1Hr <15pg/mL 50-60% >15pg/mL 20% Other Baseline Delta 1Hr <18ng/mL 50-60% >18ng/mL 20% ([employer] Guidelines November 2017) Performed By: #### 1 [id number], 7774091, 5030069380, 7123053336, 30564267, 5663857867, 5869582191, 6385553, 7599591 #### [facility] (DEFAULT) [address] [place] [address] XR Chest 1 View Frontalon XR Chest 1 View Frontal EXAM: XR Chest 1 View Frontal HISTORY: chest pain COMPARISON: 04/05/2021. TECHNIQUE: Single view chest FINDINGS: Again seen cardiomegaly, there is normal pulmonary vascular distribution but mildly increased interstitial opacity in the left perihilar region and right lung base. No evidence of pleural fluid or pneumothorax. No acute osseous abnormality is seen. IMPRESSION: Bilateral pulmonary infiltrates have increased. Final Dictated by: Maxi Trevino V Dictated DT/TM: 04/13/21 8:03 Signed (Electronic Signature): Maxi Trevino V 04/13/21 8:04 pm Technologist: Shy CONN [facility] Coding Summaryon 04-12-2021 Coding Summary HTMLBase 64 PnmjiudzCIe4pZm+PGhlYW Q+OT2TZCGoY05jsKGimS9M X6kMJG5PHGDISZPZAV6ZWB 9uyTB9EMbdY4UzzsFg KqbgcWRfPO75SSz0ZFH1pX fxTHlssC2thAVcM0m7UdVv OB92gY35VVfdRSSrAfA5Wd ZpbjsgbWFy B7ywXuCilROpWvr+PHRhYm xlIHdpZHRoPScxMDAlJyBz aYfgDI6xWz1pAZEaTSAgrO xhcHNlOiBj k9wsQYWiOMzcBV8jgIbnI3 FqfMS0MIYwb3j4Zt04mXT+ BTKzJDE2bJngSHqpi422Nd Vos7ovEPG1 kPHoSQafEUB3P25dz6K2WW NpDYIvDXT5nGG2aY4uiQhh aecdD2CbzCTzTfX9XGI8aR EfyN7tzWws oekbvV9bYzj+I84EFJ6UGG WNFK0XQme4V3FfGigzoGZ+ VH90TNUoZC40bGJyuMQau7 pokRb0YoCt UZYnHTM5zImqQQkql0OoYJ QaL80zxIToq8M1MHYxjMpb qOBwNwKifPL0zF5aBSdnna nhf9gzxhdx Qnypi9pssr61iT25D55aLN aoRMJtOTF6UTKzEASphLin bw6ceZ8nUl4+JPepm0qvg3 dpaPe7JkYo CBXpouVrqBliHVJ6t7YoDe 36W7LgwKqtk0JkKsi2pg80 fUQmz1E0qSU5YQiuVWMgkF 2oCWlwKiJ2 BIXqVzXjyV94mFVyXUesGt 3djAwkiIoxIF5tBWSvkxro HNDaqI1iAAXqsLWgvDdlZL 4wNTBpbjtm c236XsXuJUT6LRZisVRwA2 LnhP7sWbGrQUYnWWTyK0Bq oDXwEIdiY264NIijVkU5OA IgahCgA2Jn REHduElzUbJ0o9F6Ub9Kk9 BivmftRGV3MRawOCIyWrNl UgOoQcX0K0UuFzi4NOClzM jpAU8gX9Kj HUKwqhuqbdyvlMR5QBUlGE JpyC68xVTrAAnnCb7tw9W0 q078LTTpRREvdL44Vb5jsI ogMTBwdCBU eQ9vyycmb2xlisfmTeRgGG PyHBh6RSo5IICabUygOvNw ZWL5KhA8KLJ5xFVhwZ7xpD qjqialbW7t Oyc+E97rnY1nKQB4OYO8ec lxNKSnzqHeVE30EW54I1Xs PjwvdGFibGU+PGRpdiBzdH pkKY6wVaAb t4dhm3TkMWgtM4LrWCEiOD lhPwc7IOMwTNK4eMO5lF4y DCVcTEbcv1B7zTW7K6Elml Brlf9jp2fp YEMpQZgnQ05jaFTlm1R8NX LcyTI5LCSirRkgKmFipK58 Oyc+NLPedHsxr7WpMzclk1 qap2agxTu2 EpHfJAYxqzNtqRvbLGT2o3 IeZm59X96nQRnyLNVuPPHu RDXmPEQhpXrenr4caL4fOe 8+PGNvbCB3 jQS0sK2mKNNgXcN5BEtuW7 89ZsHaxJBhSowac4grq8uz eAg5JnUzAIAsgkLgiGpfMX L9h8YmIy20 D93mRFvkZTHqJGBqSPFtYG JkzBnxur6tqJ1iPz4+PC9j d8fkit92gN76bKX+PHRkIH I9rVbqFWvk GFQrtS7vIYbbGxQ6QFScCz MfnW22qETqVOklUc1vyHek cFjpTD6hWYJmsabfd187Hb Lel9anQKKi iNArJZotUEK1H40xf7K6PS NwNBBjLGU9eDZ8aA1lwDxg bjogbGVmdDsgdmVydGljYW ikDLvwD267 IHRvcDsnPlBhdGllbnQgTm QwJNh5C4BlXwf7WDMmcPhf GG5orHApMCzpKo9lrAtdnQ hfJA0qPJQc jtfkd413IsVbk0hbGPVmdI EsHKveFYM3C84cx8B4ZDPb XJKcZWU4dOV5vN8ycIvahx ogbGVmdDsg deXcvZyhTYufOQgfS418KN RvcDsnPkJpcnRoIERhdGU6 CB72KI42xAYil8A6cIV7Q6 BhZGRpbmct ehypnAZ7VIBfKTWjdU59Gh 1blHwcDf5fYGOcIZR9FVMu lCPcR3SjbE6lDaLrJDMfZI TyC9GutCAc QSnnA412DTqaJqX5RILpkd VcV8CkPMRlaVqwRpM8w4M9 Ft7YE6U1SD28VO08uNVuc5 M4jNS5O4Jv GWOufiyiinkmrCJ3THXkHT MghC20Zv9vtKvtIy3gIFHg GFV1QMYbgNUqS5RexV2lJt AjMDAwMDAw F0NpgZQnSFwiO013SUkjNx W5ADAxjsPvX1UdNIZkoKwn OfG6z3U4Ch8LBRq2EJ29QE 43uPNan6D2 aQX0C9KyPWYvzlxsvekxbC T1MHNiSLEbnN17Fu9xfRnh Gd3vQNRaZKG4HTLltEAnN5 IctE9oLcEw VTVqUFGeI8RxsPHxPCxtC0 30SBlnQbZ3ORPxljOxQ8Sb ZMUlyBwxLiM4t3T4Eo7EGV OmBU44EWR2 mEG9BO03TZ90E8YmGrclyG FibGU+PHRhYmxlIHdpZHRo SAmjBBAoSbDfxIltLH3pDk 9yZGVyLWNv yPgwaHJkToJfn2ddVFQtTD moNO4vcMgzD7OthXS6IXUp z2o3Rt03E51xM4ZxdPH+PG OvnXL0lWV0 tE2mDtUbPeB6EKhvW621Sj JthQWqHzmpl9jos2cfvNa4 HtE5FZSubzQhwOjfWGJ1g6 VwKl26G79k IHdpZHRoPSIxNSUiIHZhbG tebk1ffJ2wSk7+PGNvbCB3 sOB5tW0uJzEhOnM9JEiiT7 49InRvcCIv Grczd6enh0pxgUe9VrCiGT KoxhTbdXobCUD3u4NtXt60 J2HjiQjep5AqFkv2me55nN Pdz2K6pGE0 Z5WyFMLjxfhuoEQgkNutTQ 5eEBYwfxdlFPHecT6tGGQt T1l9FrBkLuH3JZdcY7Usva H0FRNvuJYb BNtoKBX5R01na9J5PSWaRU WbTVB0lYU6uW2etUnmuemv bGVmdDsgdmVydGljYWwtYW nlE765ZMKu mLxmDELjiC2bMUZxfNHgyH mjUG1dQHKbqfsuZajHATcW LCBLVVJUSVMgTDwvdGQ+PH DyQXX1xMbw NKxpINJplL2xVCUiX8z4Bd YgSzJ0QLorR0YpIEDbhacs Rf52iD6cBeErLrI0VKydI2 HsbpI9ZKXa lUGzWRrlDBA3V16mz4V1MO XmNOBrDET9yRL4qK3suByl bjogbGVmdDsgdmVydGljYW mhBKjuV068 WUMhyLgvXcT4LcH4YzI1Dx D2Q7ExLtc6BSVlhGkpMJ4n jHMcIHkbDw2wdDfwdDmcIQ 4wNTBpbjtw HVZtuS4mATQmqDVacQhaSB 5eVMAxfkgrp512NlMmLBE6 IEAkmOCgF1MpzT1wBpAyGT SfDWMpA8Ec sNWsOQnkA728MOczWcR0YX XzeyPgC5IrKMAuvFauKmG1 x0O2Pk25GjKGIAKbsgsceV Q+PHRkIHN0 wJsfTVodNXVneF7vLOGyS2 z4PbDuVoG0UJfyA6KwTUXa nejuBc29iN1hRgPrXfQ2NX jkJ4TaavD7 FSAuhDXqNFxiFKL4H11oo1 A1HJJnXAEiEDB1pCS2pP4q bGlnbjogbGVmdDsgdmVydG ljYWwtYWxp G892WOLlkZfuGv0KEJY1X8 UwPdh6ORPfdLmfFK8zpOPe TPvePp6pgAwjbTgnRE0hIQ BpbjtwYWRk xB2wTBNjiEHjvCmoQN7mOK Jsvaytj335NhTjDSZ9HIPz iBViX6SqbV6pKkZgMVXwWR HxD2OfxOBr SPtbD472FOdcIjN4AOPbbx GmY9VeRZBchJbeOqB3i1M0 Yf8WTVulqNP+UO87ul02F1 RhYmxlPjx0 ITQvQVI8eKU2rZ8cBRAtZM icw3C9fTN4H3HmxbEwag5s s5lyBMScQNcwC14woGPdg6 N8YYYxaPJ7 GGCciUekQpFcpZ22Coy+PG QxyQcxg4WvNhjzh6zfo4ad cNl8PhWtCRWzzeZptEexVW C6a8BaOx41 H05rWYwrBIIiWNWrEIGfNV FdnPgggd9xoU2fCi5+PGNv cHI5kWA7zG3lJiVhCsL1QK vhM026QhXz lGPePzpst9zkt8tceTz0Dg EwJDCqxlJqlQuxEAU0l8Dr Pd95Y6SieYegp1XgIiw0xu 53jYZhy2L6 uSB6L5WrGAZmwcvzmQFeiH vvQS5bXVDzbpmrIYRkbH2l IWTaV5r6SxJtWeH5OGieS5 OdkjM6FOEu uUTvHWMviLGFwU5nekdfy0 sgzxdtCyMrVOQxYNp0TPh4 LXTujQoxUyNkUWY6BdT9RE H8cNJezT9c cDxeujmvfG0jHbu+UGh5c2 rxkQQlBO9ahGZ9WV53CQ71 eJXlc1O1oDR6J3ZoWZUzcf ctcmlnaHQ6 KVAnBMXfdD37Wm2taEjbIn 3xHVFxCIO0RMMwyLWkK9Ia aM1pHdDqWYUxQQHwI3PpsV DkJGehJ018 QSryVfQ6YCYbkfZdO5SzGJ ZnkIqeGkZ2f0N8Qt7YXP69 WI89DA83rBIlj5M3vMN7N0 BhZGRpbmct hxhmmHF5OJQwVFUmoF21Rg 9vcUyjSs7cLWVjOPE9XYKh kICmN9NrlY3aOpOeCDZqDV VdD7PugUKu NKrhW601NJcsRlZ6VDSxwc OvZ5PuVSEkqJszSkQ3x6C8 Og2MEy03XP80WB42kMQpb6 Y5fWW6N0Dy AVRhbbmrwumbpPW4HRIyLL FesC82Yl1djGejDi1zAPAd SNQ3KKQjkRBnI7XvsV9tDr AjMDAwMDAw U1YccIYmIEqnW072CSrtBi I0CJBqywYbK3ZdZSOwfDeo EpP0u5T7Cc0NQZzubva7C0 RkPjwvdHI+ QO80MZWuJH24oFAfjPGbd0 gnaVr9PjEvTITkXQT1gBne OJspp4QwRFAnY36sfNNbm0 H5DQRioAww cHN (more content not included)... [facility] Coding Summary HTMLBase 64 ZsxdcxpjRPr5yKg+PGhlYW Q+TP3ALAZkE81pxXMfyH7O D3mYUK1HXSPOGYTMOB3EWW 0ueAC0ANsvL6WpjuFt HzwvfPCjKH21CUk4XMX1cD udUXwxoK6zaSVeM7f5VsLs YB87xU14JRckQLDjDjK4Eq ZpbjsgbWFy J1nrFiVkwDVxBfl+PHRhYm xlIHdpZHRoPScxMDAlJyBz kPveSN9eFa8oVFLvXCMzqO xhcHNlOiBj f9kkPPJgRNyqOO2ygUnlG3 NuhPH8MLUiv9t5Lg77eBR+ TDBaVDQ8oCdrRWutm666Dc Fqn7frLXO3 xPBuCUtwBNP1J44wy2B2HH AdADZbIHB4jDK5eB2bqTzd fzzrC9XzgWYyOeL1TOD6mI VyeN2qdYop pgvuqD4lRps+X16BFL2RBH ECRF9LMvf3D3NtXcpbgND+ PU92VLUdCB14lJIvhKLvi4 eqnZg8NjDx XXQxPLM4wHnvTCdgx6YeJO JxE84ptQQli8I0UDMegXub gNSpUwPdxEV7rX8wNMfxux rgx9mffxia Bfnqf6ersf35uQ30Z71kXB tzRPBpSJI1MFIjODHiyKsk vb3fkC5fBg5+BPnci1xpn7 pptSd5DgGx BMCxsbLlqFdwGFE9h6UyFu 35I3BrrQawl6CgBcq5ff97 yWLdb2D0zYA1CEolCJGvvD 9fGXxtNjN5 FBQqVbTowN51yYUlJOtjNq 2azOdklQssVY7uKMZeqplg XGRhzU3iJRZarWOjsXkgJE 4wNTBpbjtm i404LuFcVFB7JXNwmNQbJ0 VpiE3fEeGuRSEiNIChY7Tc gPHkUUflG083YGjwCqR1MM YwjsLoV5Bq MWRuwNzdRzA3z2J0Pb4Br7 VrqksqHSG0OPeuMNTuOjQz GkFmXiF6V8RgDdh4OOPphV dxJB9wD6Ua WVAgqpgrlunwxRA6DEThEY OjnC53pNNaNRypMc6qt3N8 j896HDQeOQUyiP33Eb4urU ogMTBwdCBU yX2gtgilf8cefqocYjAwZD DxSEs0OBe0JNRwrJftLzWo HGJ5BaO0SLK8fDAqaM6vdE lftgrhcA6h Oyc+Y37nxS4uTGT1IVL1io jbWIPkvcKpWE58RI56K1As PjwvdGFibGU+PGRpdiBzdH ryUE2hFlGb l2ncn2OpCYyaI1GmPNJeZE qwYyc0KETwTAJ5sWD2oF1x TDRfKGpfo3N2eRV4G9Zqdg Ywkg0lr1nn ZHXtYXweJ61ubZVon8C5PZ WuzQO9CUNzeHoaBfYskV41 Oyc+GPGkwRwrp0PoImdey6 mio0hdyYc9 EbTtIFRbgbIzlXxwOTH3d6 EzJu80L66rNFkmAVHhSPSx WWOsEAAvaFohga6fyM5hMs 8+PGNvbCB3 lGW9wP7dYRCxCgB3CFiiB7 33UlRgqNShRycsa6liw3dw wCp8FxTqVGCmsfQmbGeqQB C3r5XsBe15 F39eKYdjAFWkNUGdJASiPM XvyQbhbl6ohS1cVf6+PC9j m1zwvo60hK11xJI+PHRkIH T9jLslZSax ZERwlJ9oEBglXpF6IIWqIs PqiJ11oDAwNOmcEe0wjHey pUisRN0bIODwonffv415Gr Ire2qyMNVj uNFlBKjmCFK1N07pb4U2SZ KxZKTjWVN6cKG7nY3wxDwt bjogbGVmdDsgdmVydGljYW dkZAlrO188 IHRvcDsnPlBhdGllbnQgTm OaUBd2X5RyEln3RHQybVgl SZ0inAZpNCxvKl2keSbumS ugNJ5iOEWc jyicz852GpKcy7ruGMNjmW TySPiqWGP7L39zb0C4CPOn HBWhJGW0xCB2dR9twArqaz ogbGVmdDsg zuOkyDwfIFxrRCwjV828CA RvcDsnPkJpcnRoIERhdGU6 AE86JY47xIZqj7N8uWF9H2 BhZGRpbmct cjzduJU0UXNlDUUcxG18Wh 2puJcwVy1sQPQnWTV2MQHe lVYrH2JqcS2pWbDqNQGlHO PmF4MewOUh UDasD959RJdyIyD2QGQtom TaX6PyIUDrvGncGvR5q1X2 Ui5GW4X3GU44CG47wNKqn2 K9vNU9D3Be TRLnanwwmpxzfDH8CCNxMU JxpV89Xa9sfCwqQz4gVZRg TRC6KUXopPCtX7ZolG9fPv AjMDAwMDAw E8NsfSIvMLlrK534KWusWq L2OABgseSoC6HqRUChaYod LgP9x2H9Tw9WAXz8UW90GN 40pULnr7M6 mLY7S6KnDHQqnfmgopwnxB R8XNSyLIGqsN22Dh3vlEca Fi2oYIEkCMN3STQggVCuH6 RtsS7yKnHn QFWwOGOaQ4DxfWTkPGreN8 88KDoaOmQ8LTLlwgWgE9Dh RGBbdKjjEyQ0o8C6Tv5PWH KoZJ60KWV8 aKZ7VY07YQ62E2WzKjkgdV FibGU+PHRhYmxlIHdpZHRo CFrpQDEsYyZjqEgdVI6vSb 9yZGVyLWNv pBxjqBWrKaJht7yiZJQjPY tzEL9ieXobS3BulDP6VKVv i7q8Lw53O52aC2LhyRS+PG BgzGP3gRA9 cU6gLnZqIaE5XVyfE245Dk QcwNRuVlcbm5oww5njuYu3 IsZ5VKIunmSblObfGTW9a9 NqUv19C44v IHdpZHRoPSIxNSUiIHZhbG mcrj8niA3dWf9+PGNvbCB3 tFT6fG2kJePeOwL8RWxbR8 49InRvcCIv Bgrby9wrr9lpaSi2SzEpSA ZaomRuwUjmIEF7s8SwLd27 Q5VgjKvju4PeOkr6az50fO Mxz5T1wHJ8 W7CnBWLgndowfTKbcBosVT 4jXFXhbuanULBosJ1nTNMx G6p9ByPyKcF0RFohH6Qjeh I2NZKqpTGo LWzpOKU4J31bc3K1LMXeCR IaYUJ8yBV5iD0ewKwjulwk bGVmdDsgdmVydGljYWwtYW cgH995YPOt hSzhBFPqlX6aOWFioUUucF puBX5tNHBwnqnqUgsXDKsJ LCBLVVJUSVMgTDwvdGQ+PH HvJPF0rGch FRluCUKoiL8nWWTjL0b4Kk DyIyJ3HEktA6RaRQCssedj Qg95aJ2wXkKeHkW2VKczL8 EwsmQ2UKPa iSCcUCdqECF9P56vq4V3NQ IyYCBiXKX1gCL4xS2tiUfo bjogbGVmdDsgdmVydGljYW pkLFzsT335 XRTtvUfmMiR2RuB1IrB9Nl O1H9UpBov1ZZMviNnsII4q dYLgUIlbIx8ujByvwKpaKZ 4wNTBpbjtw HPUhwH1vVULfsNKemYigBR 8yQXOjnmrmx619IzOtEES9 PMUipVVvE9RuqQ2gDmXyWC PtLVPwR0Dg zOZtXVgdX179OFffTmM8VE VvvtIzR9YiQQDvwLewQxI3 z2U2Pl83SrQFUFRzomtzhX Q+PHRkIHN0 zXodTNueLHYnmA9tWCSiU1 y4PjHwPhB5IVwpL7WaNQZo jkadCh39lE0xHbSsHlS4HE kgJ1ZmvzK5 WJYnsUCaGEtbOLN5U57es0 D0YBVeXGZnJIW3wBN6aX9g bGlnbjogbGVmdDsgdmVydG ljYWwtYWxp N199XPXoiFljVo3RAKX4T2 ZxBmu8AONhvDhvRO6hiUWb DAlrEl5rjZrguSfdNV6bQG BpbjtwYWRk gP9mZTAljLYniKqzMT8oWQ Tzjtuti487ChBtXKQ3PFWi tOGpG0WlhZ4jXjAoVUJpXK TuG6UgfXWe VJvjN440GRvbLmT1NYXaek DpD0WxTTXhtAuwSvG9x7L3 Tm5WkAHiN8NbW0d4Y3JsAq wvdHI+PC90 BFPnCG47vLGvrYSlr7zbjG e1HfNdCAFcOAT3rTymYRqt l0VtLXOlG16fwBYir1N9PU NvbGxhcHNl ViHaxID6yT3yDHijajnmv3 elvtbqAdxnq9mcqj07pH86 I15oRUunNHJwNZKlSXMdVB QkhEzhbr8k jV1gIo4+DNUsbOF5gXO0yK 4pJdRvUtJ0KCezO842TiDj oDRhSsshm7fab3jffWx4Yw IwJSIgdmFs tTzzDVT1a0McOk23W18yYV dpZHRoPSIyMCUiIHZhbGln zh3xoZ6mSs1+VL8fu7swhj 62oV91gSR+ NNRiVXD7pAirLQwbUAEavQ 1vNBllViV7CMGvYiPvwG10 tYLtMDvlDf8qxTwpyQkgMW 4wNTBpbjtm m988OtBhw1hkCTTqzXZeJL ffQHU7W74vk3W0MIIsBRJa DWL2fFW9aP9jrRfjmkylaY VmdDsgdmVy nUcwSHozEJqfC717WBBsmW qdQyMbeHAoV7zjiyLCZT9m OjwvdGQ+ZUEwFET9cRkfSU vmECXycB5o LXBuY3m2MzBcXnX7WOvjM0 QpbnN4XMNfvNXlLBNpaIZR fT3fjohcr9tkdultNbJyCM XhVXo6SZl6 LUWxaIidVvOnBVS6JlS3XV E7aKXadD1mpBtvweyfmW0m Oyc+RklOOjwvdGQ+PHRkIH E2sSvbJEqp UTYgtJ7rUXSzN1p7EcEkDw C9ABduV6DmawG1JBAvdBYk DLAwqNRLmB2eojyjq4dhmq ogIzAwMDAw GVw1CVp7SCTgjEyuZuCjBS C6BdB2ISC5vSSyrM9cmIkk wjtfsY9eAby+TVJOOjwvdG Q+PHRkIHN0 qIagDAjwNPLzaV5oTWNsU4 h4UyDoUpZ5PHkkC1XftlS7 EDFagVYxSPLdhROXuW4qkd byn5cxfhtz ZlUpYOWeJHr2SCd9AYLyxK okDqBxRJB6RfN3VVC0qAFz uX8xlMlskhniuS1yMzm+UG E4ADG7HM48 HB91Y4InUwlcnJNxrVL+PH RhYmxlIHdpZHRoPScxMDAl XhAwyLzhMS2wZf7aXWAnOF NvbGxhcHNl OiB (more content not included)... [facility] .QC SARS-CoV-2 (COVID-19)/Fl u/RSV (GeneXpert)on 04-05-2021 Internal Control Pass [facility] Comment on above: Order Comment: Order ed by Discern.[[email or web address]] Performed By: #### [id number] ####[facility] (DEFAULT)[address] [place] [address] ED Clinical Summaryon 2020 ED Clinical Summary [facility] - Emergency Department [address] [place] [address] ED Clinical Summary PERSON INFORMATION Name: JOSE HAYNES Age: 46 Years Sex: MALE : 1975 MRN: Acct#: Visit Reason: Diarrhea; Vomiting; UC - Body Aches; HEADACHE, VOMITING, DIARRHEA, BODY ACHES Arrival: 04/05/2021 03:59:56 Discharge: 04/05/2021 06:20:00 LOS: 000 02:21 Check In: 04/05/2021 03:59:56 Checkout:04/05/2021 06:20:00 Address: [address] [place], [place] [id number] PCP: Provider, None PROVIDER INFORMATION Provider Role Assigned Unassigned Gina CISNEROS, Annalise Doyle ED Nurse 04/05/2021 04:08:30 Jose Joyner MD ED Provider 04/05/2021 04:09:27 VITALS INFORMATION Vital Sign Triage Latest Temperature Tympanic Temperature Temporal Artery Pulse Rate 85 bpm 85 bpm O2 Sat 100 % 100 % Respiratory Rate 18 br/min 18 br/min Blood Pressure /95 mmHg /95 mmHg MEDICAL INFORMATION Medications Given: Medication Dose Route ketorolac (Toradol) 60 mg IM ondansetron (Zofran) 4 mg PO azithromycin (Zithromax) 500 mg PO predniSONE 40 mg PO levalbuterol (Xopenex HFA) 90 mcg INH Allergy Information: No Known Medication Allergies PHYSICIAN DOCUMENTATION DISCHARGE INFORMATION: Discharge Disposition: Home Discharge Location: Home PATIENT EDUCATION INFORMATION Instructions: Community-Acquired Pneumonia, Adult, [id number] Follow-Up: With: Address: When: Follow up with primary care provider Within 3 to 5 days DIAGNOSIS: 1:Community acquired pneumonia Patient Understands: Yes - Patient/family/caregiv er verbalizes understanding of instructions given Comment: Normal [facility] ED Patient Summaryon 021 ED Patient Summary [facility] - Emergency Department [address] [place], [place] [id number] PATIENT DISCHARGE INSTRUCTIONS Patient Information Name: JOSE HAYNES Age: 46 Years Date of : 1975 Reason For Visit: Diarrhea; Vomiting; UC - Body Aches; HEADACHE, VOMITING, DIARRHEA, BODY ACHES Arrival Time: 04/05/2021 03:59:56 Primary Care Physician: Provider, None Attending Physician: Jose Joyner MD Comment: Visit Diagnosis: Diagnoses This Visit Community acquired pneumonia (J18.9) Diarrhea ([id number]) UC - Body Aches ([id number]) Vomiting ([id number]) Prescription Information: If you have been given a prescription for narcotics, seek immediate medical attention if you have any difficulty breathing or any sudden status changes such as confusion and sleepiness. If you or anyone you know is experiencing suicidal thoughts, mental health, alcohol and/or drug addiction problems; contact the [facility] 04/11 Crisis Hotline -Text 6VZRT dw 325182. If you received any narcotics, sedation, or any other medication that causes drowsiness for the next 24 hours, unless otherwise directed: ? Do not drive a car. ? Do not operate machinery such as power tools, lawn mowers, drills, sewing machines, or stoves ? Avoid alcoholic beverages and drugs for allergies, nerves, or sleep ? Do not make important personal or business decisions or sign any legal documents With: Address: When: Follow up with primary care provider Within 3 to 5 days Medication Information: The exam and treatment you received today in the [facility] Emergency Department were for an urgent problem and are not intended as complete care. It is important for you to follow up with a doctor, nurse practitioner, or physician?s ict sales assistant for ongoing care. If your symptoms become worse or you do not improve as expected and you are unable to reach your usual health care provider, you should return to the Emergency Department, we are available 24 hours a day. For those patients who have received Radiology results, the interpretation of your X-ray as given to you by our Emergency Department physician is only a preliminary report. The Radiologist will review your films and if there is a change in the diagnosis you will be notified by phone. Please make sure you have provided a working phone number so we can reach you if necessary. In the event that you had a lab culture while you were a patient in the Emergency Department, you will be notified by phone if there is a need to change your antibiotic. Please make sure you have provided a working phone number so we can reach you if necessary. [facility] Emergency Department has provided you with a complete list of medications post discharge. Please inform your net c developer/provider of your visit and for further instruction on these medications. Any specific questions regarding your chronic medications and dosages should be discussed with your primary care physician(s) and/or pharmacist. New Medications Printed Prescriptions azithromycin (Zithromax 500 mg oral tablet) 1 tab(s) Oral every day for 4 Days. Refills: 0. Additional medications on your home medication list not specifically addressed. Please contact the ordering physician if you have questions about these medications. metoprolol rivaroxaban (Xarelto 20 mg oral tablet) 1 tab(s) Oral once a day (in the evening). sertraline (sertraline 100 mg oral tablet) 1 tab(s) Oral every day. Visit Information Allergies: Substance Reaction Symptoms Type Comments No Known Medication Allergies Drug Vital Signs: Vitals and Measurements this Visit (last charted value for your 04/05/2021 visit) Vital Signs This Visit Temperature Oral: 37.2 DegC Peripheral Pulse Rate: 85 bpm Respiratory Rate: 18 br/min Systolic Blood Pressure: 164 mmHg Diastolic Blood Pressure: 95 mmHg SpO2: 100 % Oxygen Therapy: Room air Measurements This Visit Height/Length Dosin.420 cm Height/Length Estimated: 185.420 cm Weight Dosin.990 kg Weight Estimated: 92.990 kg Problems List: Problem Onset Comments Atrial fibrillation Hypertension Patient Education Community-Acquired Pneumonia, Adult Take antibiotic as prescribed. Use Tylenol as needed for fever and chills. Follow-up with your primary care physician in 3 to 5 days to review this emergency department visit. Return to the emergency department for any worsening symptoms. Pneumonia is an infection of the lungs. It causes swelling in the airways of the lungs. Mucus and fluid may also build up inside the airways. One type of pneumonia can happen while a person is in a hospital. A different type can happen when a person is not in a hospital (community-acquired pneumonia). What are the causes? (Inserted Image. Unable t (more content not included)... [facility] XR Chest 1 View Frontalon XR Chest 1 View Frontal EXAM: XR Chest 1 View Frontal HISTORY: Cough, fever COMPARISON: None. TECHNIQUE: Single frontal view chest x-ray FINDINGS: Right greater than left lower lung pulmonary opacities reflect pneumonitis and/or atelectasis. No large effusions or pneumothorax. Borderline prominent heart size. No acute bony abnormality. IMPRESSION: Right greater than left lower lung pulmonary opacities reflect pneumonitis and/or atelectasis. Final Dictated by: Jona Mendieta MD Dictated DT/TM: 04/05/21 5:38 Signed (Electronic Signature): Jona Mendieta MD 04/05/21 5:40 am Technologist: DEVONTE [facility] CT facial bones wo susie CT facial bones wo [facility] Main [place] [id number] CT Scan Report Signed Patient: Jose Haynes MR#: [id number] 02 : 1975 Acct:[id number] Age/Sex: 45 / M ADM Date: 12/27/20 Loc: ER Room: Type: PRE ER Attending Dr: Ordering Provider: KALI LOPEZ Date of Service: 12/27/20 CT/CT head/brain wo con: lightheadedness/dizzin ess ([id number]) CT/CT facial bones wo con: fall Copies to: JESSICA, PROVIDER CLINICAL DATA: Patient was bending over and passed out. Laceration at the left cheek and upper lip. CT BRAIN WITHOUT CONTRAST: COMPARISON: None TECHNIQUE: Contiguous axial unenhanced images were obtained through the brain. This CT exam was performed using one or more following dose reduction techniques: Automated exposure control, adjustment of the mA and/or kV according to patient size, or use of iterative reconstruction technique. FINDINGS: The ventricles are within normal limits for size and position. There are no areas of abnormal attenuation. There is no hemorrhage, mass effect or extra-axial collections. The calvarium is intact. CT/CT head/brain wo con IMPRESSION: NO ACUTE INTRACRANIAL TRAUMA. MAXILLOFACIAL CT WITHOUT CONTRAST: COMPARISON: None TECHNIQUE: Spiral axial unenhanced images were obtained through the facial bones. Coronal and sagittal reconstructions were also reviewed. This CT exam was performed using one or more following dose reduction techniques: Automated exposure control, adjustment of the mA and/or kV according to patient size, or use of iterative reconstruction technique. FINDINGS: No facial bone fracture or bony destruction is identified. The temporomandibular joints are intact. There is appropriate development and pneumatization of the paranasal sinuses. There is minor somewhat polypoid mucosal thickening at the base of the maxillary sinuses, greater on the left. There are no fluid levels. The ostiomeatal complexes are patent. The intraorbital contents are unremarkable. There is streak artifact from dental amalgam however the dentition appears intact. There are shotty upper cervical lymph nodes. IMPRESSION: NO EVIDENCE OF FACIAL BONE INJURY Impression dictated by: Alysha Wong M.D.12/27/2020 1:31 PM Dictation Location: [place] [address] Transcribed By: [facility] 12/27/20 1331 Dictated By: Alysha Wong MD 12/27/20 1325 Signed By: 12/27/20 1331 [facility] Complete Blood Count Auto Di ffon 12-27-2020 Basophils (Bld) [#/Vol] 0.1 10*3/uL Normal 0.0-0.2 [facility] Comment on above: Result Comment: PERF ORMED BY: [place] [address] PATHOLOGIST TRUCK CRANE OPERATOR HELPER MARCUS GONZALEZ M.D. Performed By: #### C K, CBC, CMP, CKMB, HS TROP #### [address] Basophils/100 WBC (Bld) 0.5 % Normal . [facility] Comment on above: Performed By: #### C K, CBC, CMP, CKMB, HS TROP #### [address] Eosinophils (Bld) [#/Vol] 0.2 10*3/uL Normal 0.0-0.45 [facility] Comment on above: Performed By: #### C K, CBC, CMP, CKMB, HS TROP #### [address] Eosinophils/100 WBC (Bld) 1.4 % Normal . [facility] Comment on above: Performed By: #### C K, CBC, CMP, CKMB, HS TROP #### [address] Erythrocyte distribution width (RBC) [Ratio] 13.5 % Normal 12.0-14.8 [facility] Comment on above: Performed By: #### C K, CBC, CMP, CKMB, HS TROP #### [address] Hematocrit (Bld) [Volume fraction] 50.0 % Normal 38.8-50.0 [facility] Comment on above: Performed By: #### C K, CBC, CMP, CKMB, HS TROP #### [address] Hemoglobin (Bld) [Mass/Vol] 17.1 g/dL High 13.0-17.0 [facility] Comment on above: Performed By: #### C K, CBC, CMP, CKMB, HS TROP #### [address] Lymphocytes (Bld) [#/Vol] 1.6 10*3/uL Normal 1.00-4.8 [facility] Comment on above: Performed By: #### C K, CBC, CMP, CKMB, HS TROP #### [address] Lymphocytes/100 WBC (Bld) 15.3 % Normal . [facility] Comment on above: Performed By: #### C K, CBC, CMP, CKMB, HS TROP #### [address] MCH (RBC) [Entitic mass] 30.9 pg Normal 27.5-35.2 [facility] Comment on above: Performed By: #### C K, CBC, CMP, CKMB, HS TROP #### [address] MCV (RBC) [Entitic vol] 90.6 fL Normal 83.5-101 [facility] Comment on above: Performed By: #### C K, CBC, CMP, CKMB, HS TROP #### [address] Mean Corpuscular HGB Conc 34.1 g/dL Normal 32.5-35.6 [facility] Comment on above: Performed By: #### C K, CBC, CMP, CKMB, HS TROP #### [address] Monocytes (Bld) [#/Vol] 0.6 10*3/uL Normal 0.0-0.8 [facility] Comment on above: Performed By: #### C K, CBC, CMP, CKMB, HS TROP #### [address] Monocytes/100 WBC (Bld) 5.9 % Normal . [facility] Comment on above: Performed By: #### C K, CBC, CMP, CKMB, HS TROP #### [facility] [address] Neutrophils (Bld) [#/Vol] 8.3 10*3/uL High 1.8-7.7 [facility] Comment on above: Performed By: #### C K, CBC, CMP, CKMB, HS TROP #### [facility] [address] Neutrophils/100 WBC (Bld) 76.9 % Normal . [facility] Comment on above: Performed By: #### C K, CBC, CMP, CKMB, HS TROP #### [address] Nucleated RBC/100 WBC (Bld) [Ratio] 0.1 % Normal 0-0.5 [facility] Comment on above: Performed By: #### C K, CBC, CMP, CKMB, HS TROP #### [address] Platelet mean volume (Bld) [Entitic vol] 9.6 fL Normal 6.6-10.1 [facility] Comment on above: Performed By: #### C K, CBC, CMP, CKMB, HS TROP #### [place] [address] [place] Platelets (Bld) [#/Vol] 344 10*3/uL Normal 150-450 [facility] Comment on above: Performed By: #### C K, CBC, CMP, CKMB, HS TROP #### [address] RBC (Bld) [#/Vol] 5.52 10*6/uL Normal 3.90-5.60 [facility] Comment on above: Performed By: #### C K, CBC, CMP, CKMB, HS TROP #### [place] [address] [place] WBC (Bld) [#/Vol] 10.7 10*3/uL Normal 4.5-11.0 [facility] Comment on above: Performed By: #### C K, CBC, CMP, CKMB, HS TROP #### [facility] [address] [place] [address] Comprehensive Metabolic Pane enedina 12-27-2020 Albumin [Mass/Vol] 4.0 g/dL Normal 3.2-5.5 [facility] Comment on above: Performed By: #### C K, CBC, CMP, CKMB, HS TROP #### [address] Albumin/Globulin [Mass ratio] 1.7 {ratio} Normal [facility] Comment on above: Performed By: #### C K, CBC, CMP, CKMB, HS TROP #### [address] ALP [Catalytic activity/Vol] 51 U/L Normal 32-92 [facility] Comment on above: Performed By: #### C K, CBC, CMP, CKMB, HS TROP #### [address] ALT [Catalytic activity/Vol] 27 U/L Normal 10-60 [facility] Comment on above: Performed By: #### C K, CBC, CMP, CKMB, HS TROP #### [address] AST [Catalytic activity/Vol] 24 U/L Normal 10-42 [facility] Comment on above: Performed By: #### C K, CBC, CMP, CKMB, HS TROP #### [place] [address] [place] Bilirubin [Mass/Vol] 0.7 mg/dL Normal 0.3-1.2 [facility] Comment on above: Performed By: #### C K, CBC, CMP, CKMB, HS TROP #### [place] [address] [place] Calcium [Mass/Vol] 8.9 mg/dL Normal 8.2-10.2 [facility] Comment on above: Performed By: #### C K, CBC, CMP, CKMB, HS TROP #### [place] [id number] [place] Chloride [Moles/Vol] 103 mmol/L Normal 95-114 [facility] Comment on above: Performed By: #### C K, CBC, CMP, CKMB, HS TROP #### [address] CO2 [Moles/Vol] 23.3 mmol/L Normal 22.0-30.0 [facility] Comment on above: Performed By: #### C K, CBC, CMP, CKMB, HS TROP #### [address] Creatinine [Mass/Vol] 0.96 mg/dL Normal 0.64-1.27 [facility] Comment on above: Performed By: #### C K, CBC, CMP, CKMB, HS TROP #### [address] Creatinine Clr Calc Pharmacy 105.53 [facility] Comment on above: Result Comment: PERF ORMED BY: [place] [address] PATHOLOGIST TRUCK CRANE OPERATOR HELPER MARCUS GONZALEZ M.D. Performed By: #### C K, CBC, CMP, CKMB, HS TROP #### [address] Estimated GFR ( Sandra > 60 [facility] Comment on above: Result Comment: GFR estimated reference range: According to KDOQI guidelines, <60 ml/min/1.73m2 is sufficient to diagnose a patient with chronic kidney disease. Performed By: #### C K, CBC, CMP, CKMB, HS TROP #### [address] Estimated GFR (Non- Am > 60 [facility] Comment on above: Performed By: #### C K, CBC, CMP, CKMB, HS TROP #### [address] Globulin (S) [Mass/Vol] 2.4 g/dL [facility] Comment on above: Performed By: #### C K, CBC, CMP, CKMB, HS TROP #### [facility] [address] [place] [address] [place] Glucose [Mass/Vol] 87 mg/dL Normal 70-100 [facility] Comment on above: Result Comment: [place] Glucose Reference Range is dependent on time and content of last meal. Glucose of more than 200 mg/dL in a nonstressed, ambulatory subject supports the diagnosis of Diabetes Mellitus. ADA recommended reference range Performed By: #### C K, CBC, CMP, CKMB, HS TROP #### [facility] [address] Potassium [Moles/Vol] 4.0 mmol/L Normal 3.5-5.1 [facility] Comment on above: Performed By: #### C K, CBC, CMP, CKMB, HS TROP #### [facility] [address] [place] [address] [place] Protein [Mass/Vol] 6.4 g/dL Normal 6.1-7.9 [facility] Comment on above: Performed By: #### C K, CBC, CMP, CKMB, HS TROP #### [facility] [address] [place] [address] [place] Sodium [Moles/Vol] 137 mmol/L Normal 136-146 [facility] Comment on above: Performed By: #### C K, CBC, CMP, CKMB, HS TROP #### [facility] [address] [place] [address] [place] Urea nitrogen [Mass/Vol] 10 mg/dL Normal 9-23 [facility] Comment on above: Performed By: #### C K, CBC, CMP, CKMB, HS TROP #### [facility] [address] [place] [id number] [place] Creatine Kinaseon 12-27-2020 CK [Catalytic activity/Vol] 131 U/L Normal 22-269 [facility] Comment on above: Performed By: #### C K, CBC, CMP, CKMB, HS TROP #### [facility] [address] [place] [id number] [place] Creatinine Kinase MBon 12-27 CK.MB [Mass/Vol] 3.1 ng/mL Normal 0.6-6.3 [facility] Comment on above: Performed By: #### C K, CBC, CMP, CKMB, HS TROP #### [facility] [address] CKMB Relative Index 2.3 % Normal 0.00-2.50 [facility] Comment on above: Performed By: #### C K, CBC, CMP, CKMB, HS TROP #### [facility] [address] [place] [address] [place] Dipstick and Microscopicon 0 12-27-2020 Appearance (U) Clear Normal Clear [facility] Comment on above: Order Comment: Name Collection Type:: Clean-Voided Midstream Performed By: #### A DDONUAPLUS #### [address] Bacteria,Urine None Seen Normal None Seen [facility] Comment on above: Order Comment: Name Collection Type:: Clean-Voided Midstream Performed By: #### A DDONUAPLUS #### [facility] [address] [place] [address] Bilirubin,Urine Negative Normal Negative [facility] Comment on above: Order Comment: Name Collection Type:: Clean-Voided Midstream Performed By: #### A DDONUAPLUS #### [facility] [address] [place] [address] Color (U) Yellow Normal Yellow [facility] Comment on above: Order Comment: Name Collection Type:: Clean-Voided Midstream Performed By: #### A DDONUAPLUS #### [facility] [address] [place] [address] [place] Glucose Ql (U) Normal Normal Normal [facility] Comment on above: Order Comment: Name Collection Type:: Clean-Voided Midstream Performed By: #### A DDONUAPLUS #### [facility] [address] [place] [address] [place] Hyaline Casts,Urine None Seen Normal 0-8 [facility] Comment on above: Order Comment: Name Collection Type:: Clean-Voided Midstream Result Comment: PERF ORMED BY: [place] [address] PATHOLOGIST TRUCK CRANE OPERATOR HELPER MARCUS GONZALEZ M.D. Performed By: #### A DDONUAPLUS #### [place] [address] [place] Ketones Ql (U) Negative Normal Negative [facility] Comment on above: Order Comment: Name Collection Type:: Clean-Voided Midstream Performed By: #### A DDONUAPLUS #### [address] Leukocyte esterase Test strip Ql (U) 1+ High Negative [facility] Comment on above: Order Comment: Name Collection Type:: Clean-Voided Midstream Performed By: #### A DDONUAPLUS #### [place] [address] [place] Nitrite,Urine Negative Normal Negative [facility] Comment on above: Order Comment: Name Collection Type:: Clean-Voided Midstream Performed By: #### A DDONUAPLUS #### [place] [address] [place] Occult Blood,Urine Negative Normal Negative [facility] Comment on above: Order Comment: Name Collection Type:: Clean-Voided Midstream Result Comment: PERF ORMED BY: [place] [address] PATHOLOGIST TRUCK CRANE OPERATOR HELPER MARCUS GONZALEZ M.D. Performed By: #### A DDONUAPLUS #### [place] [address] [place] pH (U) 6.0 [pH] Normal 5.0-9.0 [facility] Comment on above: Order Comment: Name Collection Type:: Clean-Voided Midstream Performed By: #### A DDONUAPLUS #### [place] [address] [place] Protein,Urine Negative Normal Negative [facility] Comment on above: Order Comment: Name Collection Type:: Clean-Voided Midstream Performed By: #### A DDONUAPLUS #### [address] [place] [address] [place] RBC,Urine None Seen Normal 0-4 [facility] Comment on above: Order Comment: Name Collection Type:: Clean-Voided Midstream Performed By: #### A DDONUAPLUS #### [address] Specificy [place],Urine 1.007 Normal 1.001-1.030 [facility] Comment on above: Order Comment: Name Collection Type:: Clean-Voided Midstream Performed By: #### A DDONUAPLUS #### [facility] [address] [place] [address] Squamous Epithelial Cell,Urine 0-1 Normal 0-2 [facility] Comment on above: Order Comment: Name Collection Type:: Clean-Voided Midstream Performed By: #### A DDONUAPLUS #### [address] Urobilinogen,Urine Normal Normal Normal [facility] Comment on above: Order Comment: Name Collection Type:: Clean-Voided Midstream Performed By: #### A DDONUAPLUS #### [facility] [address] [place] [address] [place] WBC,Urine 3-4 Normal 0-4 [facility] Comment on above: Order Comment: Name Collection Type:: Clean-Voided Midstream Performed By: #### A DDONUAPLUS #### [facility] [address] [place] [address] ECG 12 lead ECGon 12-27-2020 ECG 12 lead ECG [facility] [place] [address] Electrocardiograph Report Signed Patient: Jose Haynes MR#: [id number] 02 : 1975 Acct:[id number] Age/Sex: 45 / M ADM Date: 12/27/20 Loc: ER Room: Type: [facility] ER Attending Dr: Ordering Provider: Sonya Glasgow PA-C Date of Service: 12/27/20 ECG/ECG 12 lead ECG: Dizziness Copies to: Test Reason : Blood Pressure : / mmHG Vent. Rate : 077 BPM Atrial Rate : 082 BPM P-R Int : 000 ms QRS Dur : 096 ms QT Int : 380 ms P-R-T Axes : 000 073 038 degrees QTc Int : 430 ms Atrial fibrillation Abnormal ECG When compared with ECG of 27-DEC-2020 12:45, (Unconfirmed) Vent. rate has decreased BY 42 BPM Nonspecific T wave abnormality has replaced inverted T waves in Inferior leads Confirmed by LORETTA MALDONADO DO ([id number]) on 12/27/2020 8:08:05 PM Referred By: Electronically Signed By:LORETTA MALDONADO DO Transcribed By: MUS Signed By Loretta Maldonado DO 12/27 Normal [facility] ECG 12 lead ECG [facility] Main [address] [address] Electrocardiograph Report Signed Patient: Jose Haynes MR#: [id number] 02 : 1975 Acct:[id number] Age/Sex: 45 / M ADM Date: 12/27/20 Loc: ER Room: Type: [facility] ER Attending Dr: Ordering Provider: KALI LOPEZ Date of Service: 12/27/20 ECG/ECG 12 lead ECG: Dizziness Copies to: Test Reason : Blood Pressure : 139/070 mmHG Vent. Rate : 119 BPM Atrial Rate : 104 BPM P-R Int : 000 ms QRS Dur : 098 ms QT Int : 352 ms P-R-T Axes : 000 091 001 degrees QTc Int : 495 ms Poor data quality, interpretation may be adversely affected Atrial fibrillation with rapid ventricular response Rightward axis Abnormal ECG No previous ECGs available Confirmed by LORETTA MALDONADO DO ([id number]) on 12/27/2020 8:07:57 PM Referred By: Electronically Signed By:LORETTA MALDONADO DO Transcribed By: MUS Signed By Loretta Maldonado DO 12/27 Normal [facility] Troponin I High Sensitivityo n 12-27-2020 Troponin I High Sensitivity 4 pg/mL Normal 0-20 [facility] Comment on above: Result Comment: PERF ORMED BY: [address] [id number] PATHOLOGIST TRUCK CRANE OPERATOR HELPER MARCUS GONZALEZ M.D. Performed By: #### C K, CBC, CMP, CKMB, HS TROP #### [facility] [address] Clinical Note 04-25-2021 Note Date & Type Note Facility 04-25-2021 Note Education Materials Emergency Medicine Heart Failure Heart failure means your heart has trouble pumping blood. This makes it hard for your body to work well. Heart failure is usually a long-term (chronic) condition. You must take good care of yourself and follow your treatment plan from your doctor. Follow these instructions at home: Medicines ? Take zigp-zvy-swryqkf and prescription medicines only as told by your doctor. ? Do not stop taking your medicine unless your doctor told you to do that. ? Do not skip any doses. ? Refill your prescriptions before you run out of medicine. You need your medicines every day. Eating and drinking ? Eat heart-healthy foods. Talk with a diet and livestock nutrition territory manager (dietitian) to make an eating plan. ? Choose foods that: ? Have no trans fat. ? Are low in saturated fat and cholesterol. ? Choose healthy foods, like: ? Fresh or frozen fruits and vegetables. ? Fish. ? Low-fat (lean) meats. ? Legumes (like beans, peas, and lentils). ? Fat-free or low-fat dairy products. ? Whole-grain foods. ? High-fiber foods. ? Limit salt (sodium) if told by your doctor. Ask your livestock nutrition territory manager to recommend heart-healthy seasonings. ? Cook in healthy ways instead of frying. Healthy ways of cooking include: ? Roasting. ? Grilling. ? Broiling. ? Baking. ? Poaching. ? Steaming. ? Stir-frying. ? Limit how much fluid you drink, if told by your doctor. Lifestyle ? Do not smoke or use chewing tobacco. Do not use nicotine gum or patches before talking to your doctor. ? Limit alcohol intake to no more than 1 drink a day for non- women and 2 drinks a day for men. One drink equals 12 oz of beer, 5 oz of wine, or 1? oz of hard liquor. ? Tell your doctor if you drink alcohol many times a week. ? Talk with your doctor about whether any alcohol is safe for you. ? You should stop drinking alcohol: ? If your heart has been damaged by alcohol. ? You have very bad heart failure. ? Do not use illegal drugs. ? Lose weight if told by your doctor. ? Do moderate physical activity if told by your doctor. Ask your doctor what activities are safe for you if: ? You are of older age (elderly). ? You have very bad heart failure. Keep track of important information ? Weigh yourself every day. ? Weigh yourself every morning after you pee (urinate) and before breakfast. ? Wear the same amount of clothing each time. ? Write down your daily weight. Give your record to your doctor. ? Check and write down your blood pressure as told by your doctor. ? Check your pulse as told by your doctor. Dealing with heat and cold ? If the weather is very hot: ? Avoid activity that takes a lot of energy. ? Use air conditioning or fans, or find a cooler place. ? Avoid caffeine. ? Avoid alcohol. ? Wear clothing that is loose-fitting, lightweight, and light-colored. ? If the weather is very cold: ? Avoid activity that takes a lot of energy. ? Layer your clothes. ? Wear mittens or gloves, a hat, and a scarf when you go outside. ? Avoid alcohol. General instructions ? Manage other conditions that you have as told by your doctor. ? Learn to manage stress. If you need help, ask your doctor. ? Plan rest periods for when you get tired. ? Get education and support as needed. ? Get rehab (rehabilitation) to help you stay independent and to help with everyday tasks. ? Stay up to date with shots (immunizations), especially pneumococcal and flu (influenza) shots. ? Keep all follow-up visits as told by your doctor. This is important. Contact a doctor if: ? You gain weight quickly. ? You are more short of breath than normal. ? You cannot do your normal activities. ? You tire easily. ? You cough more than normal, especially with activity. ? You have any or more puffiness (swelling) in areas such as your hands, feet, ankles, or belly (abdomen). ? You cannot sleep because it is hard to breathe. ? You feel like your heart is beating fast (palpitations). ? You get dizzy or light-headed when you stand up. Get help right away if: ? You have trouble breathing. ? You or someone else notices a change in your awareness. This could be trouble staying awake or trouble concentrating. ? You have chest pain or discomfort. ? You pass out (faint). Summary ? Heart failure means your heart has trouble pumping blood. ? Make sure you refill your prescriptions before you run out of medicine. You need your medicines every day. ? Keep records of your weight and blood pressure to give to your doctor. ? Contact a doctor if you gain weight quickly. This information is not intended to replace advice given to you by your health care provider. Make sure you discuss any questions you have with your health care provider. Document Released: 01/07/2009 Document Revised: 12/23/2018 Document Reviewed: 04/22/2017 Vanita (more content not included)... [facility] Clinical Note 04-25-2021 Note Date & Type Note Facility 04-25-2021 Note [facility] ICU Clinical Discharge Summary PERSON INFORMATION Name JOSE HAYNES Age 46 Years 1975 Sex MALE Language Polish PCP Provider, None Marital Status Med Service Observation Acct# Arrival 04/24/2021 16:21:15 Visit Reason SOB,AFIB WITH RVR, COVID19, HYPOMAGNESEMIA Acuity LOS 000 19:19 Address: [address] [place] [id number] Comment: PROVIDER INFORMATION VITALS INFORMATION Vital Sign Triage Latest Temp Oral 37.2 DegC 36.4 DegC Temp Temporal Temp Intravascular Temp Axillary Temp Rectal 02 Sat 100 % 100 % Respiratory Rate 20 br/min 17 br/min Peripheral Pulse Rate 160 bpm 70 bpm Apical Heart Rate Blood Pressure 126 mmHg / 109 mmHg 125 mmHg / 90 mmHg Comment: MEDICAL INFORMATION Allergy Info: No Known Medication Allergies Medication List: New Medications [facility]AYK[facility] REYNOSO [address], [place] [id number], [phone] fluticasone nasal (Flonase 50 mcg/inh nasal spray) 1 spray(s) Both Nostrils every day for 14 Days. Refills: 0. lisinopril (lisinopril 5 mg oral tablet) 1 tab(s) Oral every day for 30 Days. Refills: 2. metoprolol (Toprol-XL 25 mg oral tablet, extended release) 1 tab(s) Oral every day for 30 Days. Refills: 2. predniSONE (predniSONE 20 mg oral tablet) 1 tab(s) Oral every day for 7 Days. Refills: 0. sodium chloride nasal ([place] Saline Mist 0.65% nasal spray) 2 spray(s) Both Nostrils Every 4 hours as needed congestion for 14 Days. [facility] Refills: 0. [facility], [address] [place] [id number], [phone] lisinopril (lisinopril 5 mg oral tablet) 1 tab(s) Oral every day for 30 Days. Refills: 2. metoprolol (Toprol-XL 25 mg oral tablet, extended release) 1 tab(s) Oral every day for 30 Days. Refills: 2. predniSONE (predniSONE 20 mg oral tablet) 1 tab(s) Oral every day for 7 Days. Refills: 0. Medications That Were Updated - Follow Below Instructions Other Medications Updated: dronedarone 400 Milligram Oral 2 times a day. Updated: rivaroxaban (Xarelto 20 mg oral tablet) 1 tab(s) Oral every day. Medications to Continue That Have Not Changed Other Medications FLUoxetine (PROzac 20 mg oral capsule) 1 cap(s) Oral every day. hydrOXYzine 10 Milligram Oral 2 times a day as needed as needed for anxiety. No Longer Take the Following Medications sertraline (sertraline 100 mg oral tablet) 1 tab(s) Oral every day. Comment: Lab and Radiology Results Laboratory or Other Results This Visit (last charted value for your 04/24/2021 visit) Hematology 04/25/2021 4:41 AM Hct: 46.9 % -- Normal range between ( 34.8 and 51.9 ) Hgb: 15.7 gm/dL -- Normal range between ( 11.8 and 17.7 ) MCH: 30 pg -- Normal range between ( 24 and 34 ) MCHC: 34 gm/dL -- Normal range between ( 26 and 37 ) MCV: 91 fL -- Normal range between ( 81 and 100 ) MPV: 11.9 fL -- Normal range between ( 6.3 and 10.2 ) Platelet: 226 x103/mcL -- Normal range between ( 138 and 427 ) RBC: 5.15 x106/mcL -- Normal range between ( 3.70 and 5.30 ) RDW: 13.1 % -- Normal range between ( 11.5 and 15.0 ) WBC: 4.4 x103/mcL -- Normal range between ( 3.5 and 10.5 ) Auto Eos %: 0.2 % -- Normal range between ( 0.9 and 4.0 ) Auto Lymph %: 13 % -- Normal range between ( 14 and 48 ) Auto Neut %: 82 % -- Normal range between ( 44 and 88 ) Eos Abs#: 0.0 x103/mcL -- Normal range between ( 0.0 and 0.4 ) Lymph Abs#: 0.6 x103/mcL -- Normal range between ( 1.3 and 2.9 ) Daniels Abs#: 0.2 x103/mcL -- Normal range between ( 0.0 and 0.8 ) Auto Baso %: 0.2 % -- Normal range between ( 0.2 and 2.0 ) Auto Daniels %: 5 % -- Normal range between ( 1 and 12 ) Baso Abs#: 0.0 x103/mcL -- Normal range between ( 0.0 and 0.2 ) Neut Abs#: 3.6 x103/mcL -- Normal range between ( 1.5 and 9.2 ) Coagulation 04/24/2021 4:46 PM INR: 1.08 -- Normal range between ( 0.91 and 1.11 ) PT: 11.6 second(s) -- Normal range between ( 9.7 and 11.8 ) PTT: 27 second(s) -- Normal range between ( 25 and 35 ) Chemistry 04/25/2021 4:41 AM Creatinine Level: 0.90 mg/dL -- Normal range between ( 0.90 and 1.30 ) Albumin Level: 4.4 gm/dL -- Normal range between ( 3.5 and 5.0 ) Alk Phos: 65 IU/L -- Normal range between ( 32 and 91 ) Bili Total: 0.8 mg/dL -- Normal range between ( 0.3 and 1.2 ) BUN: 11 mg/dL -- Normal range between ( 8 and 26 ) Chloride Level: 103 mmol/L -- Normal range between ( 101 and 111 ) CO2: 22 mmol/L -- Normal range between ( 21 and 32 ) Glucose Level: 146.0 mg/dL -- Normal range between ( 74.0 and 118.0 ) Magnesium: 1.99 mg/dL -- Normal range between ( 1.80 and 2.50 ) Osmolality: 276 mOsm/L Potassium Level: 4.3 mmol/L -- Normal range between ( 3.6 and 5.1 ) Sodium Level: 137.0 mmol/L -- Normal range between ( 136.0 and 144.0 ) Protein Total: 7.3 gm/dL -- Normal range between ( 6.5 and 8.1 ) Anion Gap: 16.0 mmol/L -- Normal range between ( 5.0 and 19.0 ) Calcium Level: 9.3 mg/dL -- Normal range be (more content not included)... [facility] Clinical Note 04-25-2021 Note Date & Type Note Facility 04-25-2021 Note DATE OF CONSULTATION : 04/25/2021 CARDIOLOGY REASON FOR CONSULTATION: Atrial fibrillation with rapid ventricular response. FINDINGS: Mr. Haynes is a 46-year-old gentleman with a past medical history significant for atrial fibrillation initially diagnosed approximately 20 years ago. He is status post ablation x1 as well as multiple cardioversions. He presents after having generalized fatigue, dehydration and poor appetite over the last several weeks. He was noted to be in atrial fibrillation with rapid ventricular response. He has been managed with IV fluids, IV Diltiazem and resumption of his home dose of Dronedarone with significant improvement in his symptoms. He was also noted to be COVID-19 positive upon presentation although his main symptoms for that are congestion and mild shortness of breath. He is currently saturating well on room air. He describes to me a prior cardiovascular work-up approximately 5 years ago at the [facility] [place] where he has received most of his cardiovascular care as well as the [facility] in [place]. He states that his most recent cardiovascular work-up included an echocardiogram as well as a cardioversion and ablation approximately 5 years ago. Most of his medications have been handled through his primary care physician. He has last seen a commutator assembler approximately a year ago. PAST MEDICAL HISTORY: As stated above but also includes: 1. Chronic back pain. 2. Prior history of alcohol abuse. PAST SURGICAL HISTORY: 1. Back procedure. 2. Cardioversion. 3. Radiofrequency ablation. HOME MEDICATIONS: 1. Dronedarone. 2. Sertraline. 3. Xarelto. IN-PATIENT MEDICATIONS: 1. IV Diltiazem. 2. Metoprolol prn. 3. Solu-Medrol. 4. Xarelto. ALLERGIES: No known drug allergies. SOCIAL HISTORY: Current alcohol usage includes 1-2 beers per month and he states his last drink was approximately a month ago. He currently states he uses marijuana daily; several times per day. FAMILY HISTORY: Most notable for a mother with diabetes. REVIEW OF SYSTEMS: The 10 of 14 systems were reviewed and were negative except for the history of present illness. PHYSICAL EXAMINATION: VITAL SIGNS: Blood pressure of 127/96, heart rate is 100 and he is 100% on room air. GENERAL: He appears to be his stated age in no apparent distress. HEENT: Within normal limits. NECK: Supple. No JVD. No lymphadenopathy. LUNGS: Clear to auscultation bilaterally without rhonchi, rales or wheezes. CARDIOVASCULAR EXAM: Reveals a normal S1 and S2 without murmurs, rubs or gallops. ABDOMEN: Soft and benign. EXTREMITIES: No clubbing, cyanosis or edema. ASSESSMENT: This is a 46-year-old gentleman who presents with atrial fibrillation with rapid ventricular response. He has a known history of chronic atrial fibrillation. RECOMMENDATIONS: 1. I think he would benefit from the additional of an AV colby blocking agent. We will start Metoprolol and wean him off of his Cardizem drip. 2. We will continue to observe the patient. 3. I think getting an echocardiogram would be reasonable just to make sure we have not missed any significant structural heart disease. He details to me that he has not had an echocardiogram within the last 5 years. 4. Regarding his trivially elevated high sensitivity troponin of 28, I suspect that this is secondary to a Type 2 myocardial infarction, I doubt acute coronary syndrome. He denies to me any significant chest pain or any other symptoms correlating. 5. If the echocardiogram does not show any significant issues, I would feel comfortable in discharging him to home once he has been weaned off the drip and he is tolerating his beta ct. 6. [facility] [place]. 7. I have also given him my information where he can follow up with our group if he is unable to [facility] in a timely manner. Stu Bernal M.D. JOB #: [id number] [Electronically Signed on: 04/26/2021 08:49 EST] Stu Bernal MD [Verified on: 04/26/2021 08:49 EST] Stu Bernal MD [Transcribed on: 04/25/2021 13:43 EST] [facility] Clinical Note 04-05-2021 Note Date & Type Note Facility 04-05-2021 Note Education Materials Infectious Disease Community-Acquired Pneumonia, Adult Take antibiotic as prescribed. Use Tylenol as needed for fever and chills. Follow-up with your primary care physician in 3 to 5 days to review this emergency department visit. Return to the emergency department for any worsening symptoms. Pneumonia is an infection of the lungs. It causes swelling in the airways of the lungs. Mucus and fluid may also build up inside the airways. One type of pneumonia can happen while a person is in a hospital. A different type can happen when a person is not in a hospital (community-acquired pneumonia). What are the causes? This condition is caused by germs (viruses, bacteria, or fungi). Some types of germs can be passed from one person to another. This can happen when you breathe in droplets from the cough or sneeze of an infected person. What increases the risk? You are more likely to develop this condition if you: ? Have a long-term (chronic) disease, such as: ? Chronic obstructive pulmonary disease (COPD). ? Asthma. ? Cystic fibrosis. ? Congestive heart failure. ? Diabetes. ? Kidney disease. ? Have HIV. ? Have sickle cell disease. ? Have had your spleen removed. ? Do not take good care of your teeth and mouth (poor dental hygiene). ? Have a medical condition that increases the risk of breathing in droplets from your own mouth and nose. ? Have a weakened body defense system (immune system). ? Are a smoker. ? Travel to areas where the germs that cause this illness are common. ? Are around certain animals or the places they live. What are the signs or symptoms? ? A dry cough. ? A wet (productive) cough. ? Fever. ? Sweating. ? Chest pain. This often happens when breathing deeply or coughing. ? Fast breathing or trouble breathing. ? Shortness of breath. ? Shaking chills. ? Feeling tired (fatigue). ? Muscle aches. How is this treated? Treatment for this condition depends on many things. Most adults can be treated at home. In some cases, treatment must happen in a hospital. Treatment may include: ? Medicines given by mouth or through an IV tube. ? Being given extra oxygen. ? Respiratory therapy. In rare cases, treatment for very bad pneumonia may include: ? Using a machine to help you breathe. ? Having a procedure to remove fluid from around your lungs. Follow these instructions at home: Medicines ? Take xepo-sht-gfxvovi and prescription medicines only as told by your doctor. ? Only take cough medicine if you are losing sleep. ? If you were prescribed an antibiotic medicine, take it as told by your doctor. Do not stop taking the antibiotic even if you start to feel better. General instructions ? Sleep with your head and neck raised (elevated). You can do this by sleeping in a recliner or by putting a few pillows under your head. ? Rest as needed. Get at least 8 hours of sleep each night. ? Drink enough water to keep your pee (urine) pale yellow. ? Eat a healthy diet that includes plenty of vegetables, fruits, whole grains, low-fat dairy products, and lean protein. ? Do not use any products that contain nicotine or tobacco. These include cigarettes, e-cigarettes, and chewing tobacco. If you need help quitting, ask your doctor. ? Keep all follow-up visits as told by your doctor. This is important. How is this prevented? A shot (vaccine) can help prevent pneumonia. Shots are often suggested for: ? People older than 65 years of age. ? People older than 19 years of age who: ? Are having cancer treatment. ? Have long-term (chronic) lung disease. ? Have problems with their body's defense system. You may also prevent pneumonia if you take these actions: ? Get the flu (influenza) shot every year. ? Go to the dentist as often as told. ? Wash your hands often. If you cannot use soap and water, use hand cavalry scout. Contact a doctor if: ? You have a fever. ? You lose sleep because your cough medicine does not help. Get help right away if: ? You are short of breath and it gets worse. ? You have more chest pain. ? Your sickness gets worse. This is very serious if: ? You are an older adult. ? Your body's defense system is weak. ? You cough up blood. Summary ? Pneumonia is an infection of the lungs. ? Most adults can be treated at home. Some will need treatment in a hospital. ? Drink enough water to keep your pee pale yellow. ? Get at least 8 hours of sleep each night. This information is not intended to replace advice given to you by your health care provider. Make sure you discuss any questions you have with your health care provider. Document Revised: 07/21/2019 Document Reviewed: 11/26/2018 [employer] Patient Education ? 2019 [employer]. [facility] Summary Purpose Family History No Family History Records FoundNo Family History Records Found Advance Directives No Advanced Directives Records FoundNo Advanced Directives Records Found Additional Source Comments (unrecognized sect ion and content) No Status Records FoundNo Status Records Found INFORMATION SOURCE (unrecogn ized section and content) DATE CREATED AUTHOR 05/01/2021 [facility] DATE CREATED AUTHOR AUTHOR'S ORGANIZ ATION 05/27/2021 [facility] FOR RECORDS PERTAINING TO PATIENTS WHO ARE OR HAVE BEEN ENROLLED IN A CHEMICAL DEPENDENCY/SUBSTANCEABUSE PROGRAM, SOME INFORMATION MAY BE OMITTED. This clinical summary was aggregated from multiple sources. Caution should be exercised in using it in the provision of clinical care. This summary normalizes information from multiple sources, and as a consequence, information in this document may materially change the coding, format and clinical context of patient data. In addition, data may be omitted in some cases. CLINICAL DECISIONS SHOULD BE BASED ON THE PRIMARY CLINICAL RECORDS. [employer] provides no warranty or guarantee of the accuracy or completeness of information in this document.
== END 2023-05-31 15:39 | disposition home or self-care (01) ==
LOC: ER 16:16 → MS 05-31 11:04
PROVIDERS: Admitting Provider Family Medicine; Emergency Provider Emergency Medicine; Visit Provider Family Medicine
DX: M62.82 Rhabdomyolysis (principal); F10.10 Alcohol abuse, uncomplicated; N17.9 Acute kidney failure, unspecified; E86.0 Dehydration; R11.2 Nausea with vomiting, unspecified; E87.20 Acidosis, unspecified; D72.829 Elevated white blood cell count, unspecified; F43.12 Post-traumatic stress disorder, chronic; K44.9 Diaphragmatic hernia without obstruction or gangrene; K21.9 Gastro-esophageal reflux disease without esophagitis; I10 Essential (primary) hypertension; I48.0 Paroxysmal atrial fibrillation; R06.4 Hyperventilation; F12.90 Cannabis use, unspecified, uncomplicated; Z79.899 Other long term (current) drug therapy; Z79.01 Long term (current) use of anticoagulants; Z20.822 Contact with and (suspected) exposure to COVID-19
CPT/HCPCS: 36415; 71045; 74176; 80053; 81003; 82550; 82800; 83605; 83690; 83735; 83880; 84145; 84484; 85007; 85025; 85027; 85610; 87040; 87804; 87811; 93005; 96361; 96365; 96366; 96367; 96368; 96375; 96376; 99285; G0378; J2060; J2405; J2543; J3370; J3411

== ENCOUNTER 2024-01-12 20:15 | Inpatient (IN) | payer OTHER, SELFPAY ==
[2024-01-12] VITALS (35 sets, daily range): BP systolic 104–152; BP diastolic 74–105; PULSE 41–193; TEMP 36.6; O2SAT 80–98
--- OUTSIDE RECORDS SUMMARY | 2024-01-12 20:23 | XMS_ITS | CCD ---
Author Organization [facility] Care Team Providers Care [employer] Business [employer] Consultant Name Role Phone Gopi Lemus Attending Gopi Chamberlain Admitting Unavaila lior Provider, None Primary Care Unavailable Allergies Allergy Classification Reported Allergen(s) Allergy Type Date of Onset Reaction(s) Facility (1 source) No Known Medication Allergies; Translations: [No Known Medication Allergies] Propensity to adverse reactions to drug (disorder) [facility] Repository Results Test Name Value Interpretation Reference Range Facility ED Clinical Summaryon 2023 ED Clinical Summary [facility] ? Urgent Care [address] [place] [address] Clinical Summary PERSON INFORMATION Name: JOSE HAYNES Age: 48 Years Sex: MALE : 1975 MRN: Acct#: Visit Reason: UC - Wheezing; UC - Cough; WHEEZING, CONGESTION Arrival: 01/06/2024 11:40:21 Discharge: 01/06/2024 12:34:00 LOS: 000 00:54 Check In: 01/06/2024 11:40:21 Checkout: 01/06/2024 12:34:00 Address: [address] [place] [address] PCP: Provider, None PROVIDER INFORMATION Provider Role Assigned Unassigned Jailene Medeiros RN ED Nurse 01/06/2024 11:42:51 Gopi Lemus ED PA 01/06/2024 11:46:46 VITALS INFORMATION Vital Sign Triage Latest Temperature Tympanic Temperature Temporal Artery Pulse Rate O2 Sat 97 % 97 % Respiratory Rate Blood Pressure /88 mmHg /88 mmHg MEDICAL INFORMATION Medications Given: Allergy Information: No Known Medication Allergies PHYSICIAN DOCUMENTATION DISCHARGE INFORMATION: Discharge Disposition: Home Discharge Location: Home PATIENT EDUCATION INFORMATION Instructions: Acute Bronchitis, Adult Follow-Up: With: Address: When: Follow up with primary care provider Within 3 to 5 days Comments: Diagnosis is bronchitis with wheezing.we tested you for COVID and influenza and these were negative. Your chest x-ray showed no definite pneumonia, but has not been read at this time, if there is any changes in diagnosis we will contact you. We are starting you on antibiotics, steroids to help control any wheezing, and medication to treat cough take these medications as prescribed. Keep hydrated. For any fevers take alternating doses of Tylenol and ibuprofen. Follow-up with primary care provider in 3-5 days for reevaluation of your diagnoses. Return to the emergency department/Urgent Care for worsening symptoms or concerns, intractable nausea or vomiting, spiking high fevers, acute shortness of breath or chest pain, any questions DIAGNOSIS: 1:Bronchitis with wheezing Patient Understands: Yes - Patient/family/caregive r verbalizes understanding of instructions given Comment: Normal [facility] ED Patient Summaryon 024 ED Patient Summary [facility] ? Urgent Care [address] [place] [address] PATIENT DISCHARGE INSTRUCTIONS Patient Information Name: JOSE HAYNES Age: 48 Years Date of : 1975 MRN: [id number] Reason For Visit: UC - Wheezing; UC - Cough; WHEEZING, CONGESTION Arrival Time: 01/06/2024 11:40:21 Primary Care Physician: Provider, None Attending Physician: Gopi Lemus Comment: Patient Education With: Address: When: Follow up with primary care provider Within 3 to 5 days Comments: Diagnosis is bronchitis with wheezing.we tested you for COVID and influenza and these were negative. Your chest x-ray showed no definite pneumonia, but has not been read at this time, if there is any changes in diagnosis we will contact you. We are starting you on antibiotics, steroids to help control any wheezing, and medication to treat cough take these medications as prescribed. Keep hydrated. For any fevers take alternating doses of Tylenol and ibuprofen. Follow-up with primary care provider in 3-5 days for reevaluation of your diagnoses. Return to the emergency department/Urgent Care for worsening symptoms or concerns, intractable nausea or vomiting, spiking high fevers, acute shortness of breath or chest pain, any questions Acute Bronchitis, Adult Acute bronchitis is sudden inflammation of the main airways (bronchi) that come off the windpipe (trachea) in the lungs. The swelling causes the airways to get smaller and make more mucus than normal. This can make it hard to breathe and can cause coughing or noisy breathing (wheezing). Acute bronchitis may last several weeks. The cough may last longer. Allergies, asthma, and exposure to smoke may make the condition worse. What are the causes? This condition can be caused by germs and by substances that irritate the lungs, including: ? Cold and flu viruses. The most common cause of this condition is the virus that causes the common cold. ? Bacteria. This is less common. ? Breathing in substances that irritate the lungs, including: ? Smoke from cigarettes and other forms of tobacco. ? Dust and pollen. ? Fumes from household cleaning products, gases, or burned fuel. ? Indoor or outdoor air pollution. What increases the risk? The following factors may make you more likely to develop this condition: ? A weak body's defense system, also called the immune system. ? A condition that affects your lungs and breathing, such as asthma. What are the signs or symptoms? Common symptoms of this condition include: ? Coughing. This may bring up clear, yellow, or green mucus from your lungs (sputum). ? Wheezing. ? Runny or stuffy nose. ? Having too much mucus in your lungs (chest congestion). ? Shortness of breath. ? Aches and pains, including sore throat or chest. How is this diagnosed? This condition is usually diagnosed based on: ? Your symptoms and medical history. ? A physical exam. You may also have other tests, including tests to rule out other conditions, such as pneumonia. These tests include: ? A test of lung function. ? Test of a mucus sample to look for the presence of bacteria. ? Tests to check the oxygen level in your blood. ? Blood tests. ? Chest X-ray. How is this treated? Most cases of acute bronchitis clear up over time without treatment. Your health care provider may recommend: ? Drinking more fluids to help thin your mucus so it is easier to cough up. ? Taking inhaled medicine (inhaler) to improve air flow in and out of your lungs. ? Using a vaporizer or a humidifier. These are machines that add water to the air to help you breathe better. ? Taking a medicine that thins mucus and clears congestion (expectorant). ? Taking a medicine that prevents or stops coughing (cough suppressant). It is not common to take an antibiotic medicine for this condition. Follow these instructions at home: ? Take [id number] and prescription medicines only as told by your health care provider. ? Use an inhaler, vaporizer, or humidifier as told by your health care provider. ? Take two teaspoons (10 mL) of honey at bedtime to lessen coughing at night. ? Drink enough fluid to keep your urine pale yellow. ? Do not use any products that contain nicotine or tobacco. These products include cigarettes, chewing tobacco, and vaping devices, such as e-cigarettes. If you need help quitting, ask your health care provider. ? Get plenty of rest. ? Return to your normal activities as told by your health care provider. Ask your health care provider what activities are safe for you. ? Keep all follow-up visits. This is important. How is this prevented? To lower your risk of getting this condition again: ? Wash your hands often with soap and water for at least 20 seconds. If soap and water are not isamar (more content not included)... Normal [facility] POCT Rapid CoV-2 (COVID-19) Antigen/ Flu A&Bon 01-06-2024 Influenza A POCT Negative Normal Negative [facility] Comment on above: Performed By: #### 6 [id number] #### [facility] (DEFAULT) [address] [place] [address] Influenza B POCT Negative Normal Negative [facility] Comment on above: Performed By: #### 0 [id number] #### [facility] (DEFAULT) [address] [place] [address] SARS-CoV-2 (COVID-19) RNA ECTOR+probe Ql (Unsp spec) Not detected Normal [facility] Comment on above: Performed By: #### 2 [id number] #### [facility] (DEFAULT) [address] [place] [address] Urgent Care [facility] 024 Urgent Care Record [facility] ? Urgent Care [address] [place] [address] PATIENT DISCHARGE INSTRUCTIONS Patient Information Name: JOSE HAYNES Age: 48 Years Date of : 1975 Reason For Visit: UC - Wheezing; UC - Cough; WHEEZING, CONGESTION Arrival Time: 01/06/2024 11:40:21 Primary Care Physician: Provider, None Attending Physician: Gopi Lemus Comment: Visit Diagnosis: Diagnoses This Visit Bronchitis with wheezing (J40) UC - Cough ([id number]) UC - Wheezing ([id number]) If you received any narcotics, sedation, or [...] care provider Within 3 to 5 days Comments: Diagnosis is bronchitis with wheezing.we tested you for COVID and influenza and these were negative. Your chest x-ray showed no definite pneumonia, but has not been read at this time, if there is any changes in diagnosis we will contact you. We are starting you on antibiotics, steroids to help control any wheezing, and medication to treat cough take these medications as prescribed. Keep hydrated. For any fevers take alternating doses of Tylenol and ibuprofen. Follow-up with primary care provider in 3-5 days for reevaluation of your diagnoses. Return to the emergency department/Urgent Care for worsening symptoms or concerns, intractable nausea or vomiting, spiking high fevers, acute shortness of breath or chest pain, any questions Medication Information: The exam and treatment you received today in the [facility] were for an urgent problem and are not intended as complete care. It is important for you to follow up with a doctor, nurse practitioner, or physician?s marketing assistant retail division for ongoing care. If your symptoms become worse or you do not improve as expected and you are unable to reach your usual health care provider, you should return to the Emergency Department, we are available 24 hours a day. For those patients who have received Radiology results, the interpretation of your X-ray as given to you by our Urgent Care physician is only a preliminary report. The Radiologist will review your films and if there is a change in the diagnosis you will be notified by phone. Please make sure you have provided a working phone number so we can reach you if necessary. In the event that you had a lab culture while you were a patient in the Urgent Care, you will be notified by phone if there is a need to change your antibiotic. Please make sure you have provided a working phone number so we can reach you if necessary. [facility] Urgent [facility] has provided you with a complete list of medications post discharge. Please inform your gas station service attendant/provider of your visit and for further instruction on these medications. Any specific questions regarding your chronic medications and dosages should be discussed with your primary care physician(s) and/or pharmacist. New Medications [facility] at [address] [phone], [phone] azithromycin (Azithromycin 5 Day Dose Pack 250 mg oral tablet) 1 packet(s) Oral (given by mouth) once. as directed on package labeling. Refills: 0. benzonatate (Tessalon Perles 100 mg oral capsule) 2 cap(s) Oral (given by mouth) 3 times per day for 5 Days. Refills: 0. predniSONE (predniSONE 20 mg oral tablet) 2 tab(s) Oral (given by mouth) every day for 5 Days. Refills: 0. Additional medications on your home medication list not specifically addressed. Please contact the ordering physician if you have questions about these medications. atorvastatin (atorvastatin 10 mg oral tablet) 1 tab(s) Oral (given by mouth) every day. diclofenac topical (diclofenac 1% topical gel) 1 katelynn Topical (on the skin) 4 times a day as needed pain. dilTIAZem 240 Milligram Oral (given by mouth) every day. dofetilide (dofetilide 250 mcg oral capsule) 1 cap(s) Oral (given by mouth) 2 times per day. FLUoxetine (PROzac 20 mg oral capsule) 1 cap(s) Oral (given by mouth) every day. fluticasone nasal (Flonase 50 mcg/inh nasal spray) 1 spray(s) Nostril-Both every day for 14 Days. Refills: 0. hydrOXYzine 10 Milligram Oral (given by mouth) 2 times per day as needed as needed for anxiety. lisinopril (lisinopril 5 mg oral tablet) 1 tab(s) Oral (given by mouth) every day for 30 Days. Refills: 2. loratadine (loratadine 10 mg oral tablet) 1 tab(s) Oral (given by mouth) every day. omeprazole 20 Milligram Oral (given by mouth) every day. rivaroxaban (Xarelto 20 mg oral tablet) 1 tab(s) Oral (given by mouth) every d (more content not included)... [facility] XR Chest 1 View Frontalon XR Chest 1 View Frontal EXAM: XR Chest 1 View Frontal HISTORY: Cough and wheezing COMPARISON: Chest study dated 05/30/2023 TECHNIQUE: AP view of the chest was obtained with portable technique at 12:12 PM. FINDINGS: Heart is mildly enlarged, increased in size compared to the prior exam. There may be small bilateral pleural effusions inferiorly. Mild prominence of interstitial markings inferiorly, consider edema related to congestive changes. No obvious consolidated infiltrate. No obvious pneumothorax. Bony structures appear grossly intact. IMPRESSION: Interval mild cardiomegaly. Consider mild congestive changes. Final Dictated by: Sincere Guzmán MD Dictated DT/TM: 01/06/24 12:23 Signed (Electronic Signature): Sincere Guzmán MD 01/06/24 12:26 p Technologist: [facility] CT facial bones wo [facility] facial bones wo [facility] [address] CT Scan Report Signed Patient: Jose Haynes MR#: [id number] 02 : 1975 Acct:[id number] Age/Sex: 45 / M ADM Date: 12/27/20 Loc: ER Room: Type: PRE ER Attending Dr: Ordering Provider: JESSICA PROVIDER Date of Service: 12/27/20 CT/CT head/brain wo con: lightheadedness/dizzine ss ([id number]) CT/CT facial bones wo con: fall Copies to: TEMP, PROVIDER CLINICAL DATA: Patient was bending over [...] Alysha Wong M.D.12/27/2020 1:31 PM Dictation Location: [place] [address] Transcribed By: [facility] 12/27/20 1331 Dictated By: Alysha Wong MD 12/27/20 1325 Signed By: 12/27/20 1331 Normal [facility] Complete Blood Count Auto Di ffon 12-27-2020 Basophils (Bld) [#/Vol] 0.1 10*3/uL Normal 0.0-0.2 [facility] Comment on above: Result Comment: PERF ORMED BY: [place] [address] PATHOLOGIST LITHOGRAPHER HELPER MARCUS GONZALEZ M.D. Performed By: #### C K, CBC, CMP, CKMB, HS TROP #### [address] Basophils/100 WBC (Bld) 0.5 % Normal . [facility] Comment on above: Performed By: #### C K, CBC, CMP, CKMB, HS TROP #### [address] Eosinophils (Bld) [#/Vol] 0.2 10*3/uL Normal 0.0-0.45 [facility] Comment on above: Performed By: #### C K, CBC, CMP, CKMB, HS TROP #### [address] Eosinophils/100 WBC (Bld) 1.4 % Normal . [facility] Comment on above: Performed By: #### C K, CBC, CMP, CKMB, HS TROP #### [address] Erythrocyte distribution width (RBC) [Ratio] 13.5 % Normal 12.0-14.8 [facility] Comment on above: Performed By: #### C K, CBC, CMP, CKMB, HS TROP #### [address] Hematocrit (Bld) [Volume fraction] 50.0 % Normal 38.8-50.0 [facility] Comment on above: Performed By: #### C K, CBC, CMP, CKMB, HS TROP #### [address] Hemoglobin (Bld) [Mass/Vol] 17.1 g/dL High 13.0-17.0 [facility] Comment on above: Performed By: #### C K, CBC, CMP, CKMB, HS TROP #### [place] [address] [place] Lymphocytes (Bld) [#/Vol] 1.6 10*3/uL Normal 1.00-4.8 [facility] Comment on above: Performed By: #### C K, CBC, CMP, CKMB, HS TROP #### [address] Lymphocytes/100 WBC (Bld) 15.3 % Normal . [facility] Comment on above: Performed By: #### C K, CBC, CMP, CKMB, HS TROP #### [address] MCH (RBC) [Entitic mass] 30.9 pg Normal 27.5-35.2 [facility] Comment on above: Performed By: #### C K, CBC, CMP, CKMB, HS TROP #### [address] MCV (RBC) [Entitic vol] 90.6 fL Normal 83.5-101 [facility] Comment on above: Performed By: #### C K, CBC, CMP, CKMB, HS TROP #### [address] Mean Corpuscular HGB Conc 34.1 g/dL Normal 32.5-35.6 [facility] Comment on above: Performed By: #### C K, CBC, CMP, CKMB, HS TROP #### [address] Monocytes (Bld) [#/Vol] 0.6 10*3/uL Normal 0.0-0.8 [facility] Comment on above: Performed By: #### C K, CBC, CMP, CKMB, HS TROP #### [place] [address] [place] Monocytes/100 WBC (Bld) 5.9 % Normal . [facility] Comment on above: Performed By: #### C K, CBC, CMP, CKMB, HS TROP #### [address] Neutrophils (Bld) [#/Vol] 8.3 10*3/uL High 1.8-7.7 [facility] Comment on above: Performed By: #### C K, CBC, CMP, CKMB, HS TROP #### [address] Neutrophils/100 WBC (Bld) 76.9 % Normal . [facility] Comment on above: Performed By: #### C K, CBC, CMP, CKMB, HS TROP #### [address] Nucleated RBC/100 WBC (Bld) [Ratio] 0.1 % Normal 0-0.5 [facility] Comment on above: Performed By: #### C K, CBC, CMP, CKMB, HS TROP #### [address] Platelet mean volume (Bld) [Entitic vol] 9.6 fL Normal 6.6-10.1 [facility] Comment on above: Performed By: #### C K, CBC, CMP, CKMB, HS TROP #### [address] Platelets (Bld) [#/Vol] 344 10*3/uL Normal 150-450 [facility] Comment on above: Performed By: #### C K, CBC, CMP, CKMB, HS TROP #### [address] RBC (Bld) [#/Vol] 5.52 10*6/uL Normal 3.90-5.60 [facility] Comment on above: Performed By: #### C K, CBC, CMP, CKMB, HS TROP #### [address] WBC (Bld) [#/Vol] 10.7 10*3/uL Normal 4.5-11.0 [facility] Comment on above: Performed By: #### C K, CBC, CMP, CKMB, HS TROP #### [address] Comprehensive Metabolic Pane enedina 12-27-2020 Albumin [Mass/Vol] 4.0 g/dL Normal 3.2-5.5 [facility] Comment on above: Performed By: #### C K, CBC, CMP, CKMB, HS TROP #### [address] Albumin/Globulin [Mass ratio] 1.7 {ratio} Normal [facility] Comment on above: Performed By: #### C K, CBC, CMP, CKMB, HS TROP #### [address] ALP [Catalytic activity/Vol] 51 U/L Normal 32-92 [facility] Comment on above: Performed By: #### C K, CBC, CMP, CKMB, HS TROP #### [address] ALT [Catalytic activity/Vol] 27 U/L Normal 10-60 [facility] Comment on above: Performed By: #### C K, CBC, CMP, CKMB, HS TROP #### [address] AST [Catalytic activity/Vol] 24 U/L Normal 10-42 [facility] Comment on above: Performed By: #### C K, CBC, CMP, CKMB, HS TROP #### [address] Bilirubin [Mass/Vol] 0.7 mg/dL Normal 0.3-1.2 [facility] Comment on above: Performed By: #### C K, CBC, CMP, CKMB, HS TROP #### [address] Calcium [Mass/Vol] 8.9 mg/dL Normal 8.2-10.2 [facility] Comment on above: Performed By: #### C K, CBC, CMP, CKMB, HS TROP #### [address] Chloride [Moles/Vol] 103 mmol/L Normal 95-114 [facility] Comment on above: Performed By: #### C K, CBC, CMP, CKMB, HS TROP #### [facility] [address] CO2 [Moles/Vol] 23.3 mmol/L Normal 22.0-30.0 [facility] Comment on above: Performed By: #### C K, CBC, CMP, CKMB, HS TROP #### [address] Creatinine [Mass/Vol] 0.96 mg/dL Normal 0.64-1.27 [facility] Comment on above: Performed By: #### C K, CBC, CMP, CKMB, HS TROP #### [address] Creatinine Clr Calc Pharmacy 105.53 [facility] Comment on above: Result Comment: PERF ORMED BY: [place] [address] PATHOLOGIST LITHOGRAPHER HELPER MARCUS GONZALEZ M.D. Performed By: #### C K, CBC, CMP, CKMB, HS TROP #### [address] Estimated GFR ( Sandra > 60 [facility] Comment on above: Result Comment: GFR estimated reference range: According to KDOQI guidelines, <60 ml/min/1.73m2 is sufficient to diagnose a patient with chronic kidney disease. Performed By: #### C K, CBC, CMP, CKMB, HS TROP #### [address] Estimated GFR (Non- Am > 60 [facility] Comment on above: Performed By: #### C K, CBC, CMP, CKMB, HS TROP #### [address] Globulin (S) [Mass/Vol] 2.4 g/dL Normal [facility] Comment on above: Performed By: #### C K, CBC, CMP, CKMB, HS TROP #### [address] Glucose [Mass/Vol] 87 mg/dL Normal 70-100 [facility] Comment on above: Result Comment: [place] Glucose Reference Range is dependent on time and content of last meal. Glucose of more than 200 mg/dL in a nonstressed, ambulatory subject supports the diagnosis of Diabetes Mellitus. ADA recommended reference range Performed By: #### C K, CBC, CMP, CKMB, HS TROP #### [address] Potassium [Moles/Vol] 4.0 mmol/L Normal 3.5-5.1 [facility] Comment on above: Performed By: #### C K, CBC, CMP, CKMB, HS TROP #### [address] Protein [Mass/Vol] 6.4 g/dL Normal 6.1-7.9 [facility] Comment on above: Performed By: #### C K, CBC, CMP, CKMB, HS TROP #### [address] Sodium [Moles/Vol] 137 mmol/L Normal 136-146 [facility] Comment on above: Performed By: #### C K, CBC, CMP, CKMB, HS TROP #### [address] Urea nitrogen [Mass/Vol] 10 mg/dL Normal 9-23 [facility] Comment on above: Performed By: #### C K, CBC, CMP, CKMB, HS TROP #### [place] [address] [place] Creatine Kinaseon 12-27-2020 CK [Catalytic activity/Vol] 131 U/L Normal 22-269 [facility] Comment on above: Performed By: #### C K, CBC, CMP, CKMB, HS TROP #### [place] [address] [place] Creatinine Kinase MBon 12-27 CK.MB [Mass/Vol] 3.1 ng/mL Normal 0.6-6.3 [facility] Comment on above: Performed By: #### C K, CBC, CMP, CKMB, HS TROP #### [facility] [address] [place] [address] [place] CKMB Relative Index 2.3 % Normal 0.00-2.50 [facility] Comment on above: Performed By: #### C K, CBC, CMP, CKMB, HS TROP #### [facility] [address] [place] [address] [place] Dipstick and Microscopicon 0 12-27-2020 Appearance (U) Clear Normal Clear [facility] Comment on above: Order Comment: Name Collection Type:: Clean-Voided Midstream Performed By: #### A DDONUAPLUS #### [facility] [address] [place] [address] [place] Bacteria,Urine None Seen Normal None Seen [facility] Comment on above: Order Comment: Name Collection Type:: Clean-Voided Midstream Performed By: #### A DDONUAPLUS #### [facility] [address] [place] [address] [place] Bilirubin,Urine Negative Normal Negative [facility] Comment on above: Order Comment: Name Collection Type:: Clean-Voided Midstream Performed By: #### A DDONUAPLUS #### [facility] [address] [place] [address] [place] Color (U) Yellow Normal Yellow [facility] Comment on above: Order Comment: Name Collection Type:: Clean-Voided Midstream Performed By: #### A DDONUAPLUS #### [facility] [address] [place] [address] [place] Glucose Ql (U) Normal Normal Normal [facility] Comment on above: Order Comment: Name Collection Type:: Clean-Voided Midstream Performed By: #### A DDONUAPLUS #### [facility] [address] [place] [address] [place] Hyaline Casts,Urine None Seen Normal 0-8 [facility] Comment on above: Order Comment: Name Collection Type:: Clean-Voided Midstream Result Comment: PERF ORMED BY: [place] [address] PATHOLOGIST LITHOGRAPHER HELPER JIANLAN SUN M.D. Performed By: #### A DDONUAPLUS #### [facility] [address] [place] [address] Ketones Ql (U) Negative Normal Negative [facility] Comment on above: Order Comment: Name Collection Type:: Clean-Voided Midstream Performed By: #### A DDONUAPLUS #### [address] Leukocyte esterase Test strip Ql (U) 1+ High Negative [facility] Comment on above: Order Comment: Name Collection Type:: Clean-Voided Midstream Performed By: #### A DDONUAPLUS #### [place] [address] [place] Nitrite,Urine Negative Normal Negative [facility] Comment on above: Order Comment: Name Collection Type:: Clean-Voided Midstream Performed By: #### A DDONUAPLUS #### [place] [address] [place] Occult Blood,Urine Negative Normal Negative [facility] Comment on above: Order Comment: Name Collection Type:: Clean-Voided Midstream Result Comment: PERF ORMED BY: [place] [address] PATHOLOGIST LITHOGRAPHER HELPER MARCUS GONZALEZ M.D. Performed By: #### A DDONUAPLUS #### [place] [address] [place] pH (U) 6.0 [pH] Normal 5.0-9.0 [facility] Comment on above: Order Comment: Name Collection Type:: Clean-Voided Midstream Performed By: #### A DDONUAPLUS #### [place] [address] [place] Protein,Urine Negative Normal Negative [facility] Comment on above: Order Comment: Name Collection Type:: Clean-Voided Midstream Performed By: #### A DDONUAPLUS #### [place] [address] [place] RBC,Urine None Seen Normal 0-4 [facility] Comment on above: Order Comment: Name Collection Type:: Clean-Voided Midstream Performed By: #### A DDONUAPLUS #### [address] Specificy [place],Urine 1.007 Normal 1.001-1.030 [facility] Comment on above: Order Comment: Name Collection Type:: Clean-Voided Midstream Performed By: #### A DDONUAPLUS #### [address] Squamous Epithelial Cell,Urine 0-1 Normal 0-2 [facility] Comment on above: Order Comment: Name Collection Type:: Clean-Voided Midstream Performed By: #### A DDONUAPLUS #### [address] Urobilinogen,Urine Normal Normal Normal [facility] Comment on above: Order Comment: Name Collection Type:: Clean-Voided Midstream Performed By: #### A DDONUAPLUS #### [address] WBC,Urine 3-4 Normal 0-4 [facility] Comment on above: Order Comment: Name Collection Type:: Clean-Voided Midstream Performed By: #### A DDONUAPLUS #### [address] ECG 12 lead ECGon 12-27-2020 ECG 12 lead ECG [facility] [address] Electrocardiograph Report Signed Patient: Jose Haynes MR#: [id number] 02 : 1975 Acct:[id number] Age/Sex: 45 / M ADM Date: 12/27/20 Loc: ER Room: Type: [facility] ER Attending Dr: Ordering Provider: [...] waves in Inferior leads Confirmed by LORETTA CARR DO ([id number]) on 12/27/2020 8:08:05 PM Referred By: Electronically Signed By:LORETTA CARR DO Transcribed By: MUS Signed By Loretta Carr DO 12/27 Normal [facility] ECG 12 lead ECG [facility] [place] [address] [place] [address] Electrocardiograph Report Signed Patient: Jose Haynes MR#: [id number] 02 : 1975 Acct:[id number] Age/Sex: 45 / M ADM Date: 12/27/20 Loc: ER Room: Type: [facility] ER Attending Dr: Ordering Provider: [...] No previous ECGs available Confirmed by LORETTA CARR DO ([id number]) on 12/27/2020 8:07:57 PM Referred By: Electronically Signed By:LORETTA CARR DO Transcribed By: MUS Signed By Loretta Carr DO 12/27 Normal [facility] Troponin I High Sensitivityo n 12-27-2020 Troponin I High Sensitivity 4 pg/mL Normal 0-20 [facility] Comment on above: Result Comment: PERF ORMED BY: [place] [address] PATHOLOGIST LITHOGRAPHER HELPER MARCUS GONZALEZ M.D. Performed By: #### C K, CBC, CMP, CKMB, HS TROP #### [facility] [address] [place] [address] [place] Encounters Encounter Date Encounter Type Care Provider Facility Start: 01-06-2024 End: 01-06-2024 ambulatory Gopi GEE Facility:[facility] Payers Date Payer Category Payer [employer] [id number] 1975 Unknown [id number] Clinical Note 01-06-2024 Note Date & Type Note Facility 01-06-2024 Note Patient Education Ma terials Follows:Medicine Acute Bronchitis, Adult Acute bronchitis is sudden inflammation of the main airways (bronchi) that come off the windpipe (trachea) in the lungs. The swelling causes the airways to get smaller and make more mucus than normal. This can make it hard to breathe and can cause coughing or noisy breathing (wheezing). Acute bronchitis may last several weeks. The cough may last longer. Allergies, asthma, and exposure to smoke may make the condition worse. What are the causes? This condition can be caused by germs and by substances that irritate the lungs, including: ? Cold and flu viruses. The most common cause of this condition is the virus that causes the common cold. ? Bacteria. This is less common. ? Breathing in substances that irritate the lungs, including: ? Smoke from cigarettes and other forms of tobacco. ? Dust and pollen. ? Fumes from household cleaning products, gases, or burned fuel. ? Indoor or outdoor air pollution. What increases the risk? The following factors may make you more likely to develop this condition: ? A weak body's defense system, also called the immune system. ? A condition that affects your lungs and breathing, such as asthma. What are the signs or symptoms? Common symptoms of this condition include: ? Coughing. This may bring up clear, yellow, or green mucus from your lungs (sputum). ? Wheezing. ? Runny or stuffy nose. ? Having too much mucus in your lungs (chest congestion). ? Shortness of breath. ? Aches and pains, including sore throat or chest. How is this diagnosed? This condition is usually diagnosed based on: ? Your symptoms and medical history. ? A physical exam. You may also have other tests, including tests to rule out other conditions, such as pneumonia. These tests include: ? A test of lung function. ? Test of a mucus sample to look for the presence of bacteria. ? Tests to check the oxygen level in your blood. ? Blood tests. ? Chest X-ray. How is this treated? Most cases of acute bronchitis clear up over time without treatment. Your health care provider may recommend: ? Drinking more fluids to help thin your mucus so it is easier to cough up. ? Taking inhaled medicine (inhaler) to improve air flow in and out of your lungs. ? Using a vaporizer or a humidifier. These are machines that add water to the air to help you breathe better. ? Taking a medicine that thins mucus and clears congestion (expectorant). ? Taking a medicine that prevents or stops coughing (cough suppressant). It is not common to take an antibiotic medicine for this condition. Follow these instructions at home: ? Take psut-ymr-usizuhr and prescription medicines only as told by your health care provider. ? Use an inhaler, vaporizer, or humidifier as told by your health care provider. ? Take two teaspoons (10 mL) of honey at bedtime to lessen coughing at night. ? Drink enough fluid to keep your urine pale yellow. ? Do not use any products that contain nicotine or tobacco. These products include cigarettes, chewing tobacco, and vaping devices, such as e-cigarettes. If you need help quitting, ask your health care provider. ? Get plenty of rest. ? Return to your normal activities as told by your health care provider. Ask your health care provider what activities are safe for you. ? Keep all follow-up visits. This is important. How is this prevented? To lower your risk of getting this condition again: ? Wash your hands often with soap and water for at least 20 seconds. If soap and water are not available, use hand crawler tractor operator. ? Avoid contact with people who have cold symptoms. ? Try not to touch your mouth, nose, or eyes with your hands. ? Avoid breathing in smoke or chemical fumes. Breathing smoke or chemical fumes will make your condition worse. ? Get the flu shot every year. Contact a health care provider if: ? Your symptoms do not improve after 2 weeks. ? You have trouble coughing up the mucus. ? Your cough keeps you awake at night. ? You have a fever. Get help right away if you: ? Cough up blood. ? Feel pain in your chest. ? Have severe shortness of breath. ? Faint or keep feeling like you are going to faint. ? Have a severe headache. ? Have a fever or chills that get worse. These symptoms may represent a serious problem that is an emergency. Do not wait to see if the symptoms will go away. Get medical help right away. Call your local emergency services (911 in the [place] Do not drive yourself to the hospital. Summary ? Acute bronchitis is inflammation of the main airways (bronchi) that come off the windpipe (trachea) in the lungs. The swelling causes the airways to get smaller and make more mucus than normal. ? Drinking more fluids can help thin your mucus so it is easier to cough up. ? Take xodo-zqt-vchwa (more content not included)... [facility] Summary Purpose Family History No Family History Records FoundNo Family History Records Found Advance Directives No Advanced Directives Records FoundNo Advanced Directives Records Found Additional Source Comments (unrecognized sect ion and content) No Status Records FoundNo Status Records Found INFORMATION SOURCE (unrecogn ized section and content) DATE CREATED AUTHOR 05/27/2021 [facility] DATE CREATED AUTHOR AUTHOR'S STEVE FLORIAN 2024 [facility] FOR RECORDS PERTAINING TO PATIENTS WHO ARE [...] BE BASED ON THE PRIMARY CLINICAL RECORDS. [employer] provides no warranty or guarantee of the accuracy or completeness of information in this document.
--- NOTE | 2024-01-12 20:48 | CT_ITS ---
The [address] [address] Patient Name: JOSE WILL MRN: [id number] date: 1975 Sex: M Assigned Patient Location: ER Current Patient Location: Accession/Order Number: [id number] Exam Date: 01/12/2024 22:35 Report Date: 01/13/2024 00:08 At the request of: DANDY TALAMANTES Procedure: CT abdomen pelvis w con Examination:CT abdomen pelvis w con, CT angio chest INDICATION: Diarrhea, decreased urine output. Atrial fibrillation COMPARISON: CT abdomen and pelvis dated 05/30/2023. No prior chest CT for comparison. TECHNIQUE: Helical CT images were obtained of the chest, abdomen and pelvis after the administration of intravenous contrast. Coronal and sagittal reconstructed images were reviewed. Images through the chest were obtained per PE protocol. FINDINGS: CHEST: LUNGS: There is pulmonary edema in the lungs. There are inhomogeneous groundglass opacities scattered throughout all lobes of each lung which may be secondary to alveolar edema versus multifocal infection. There is thickening along the bronchovascular bundles likely related to edema. PLEURAL CAVITY: There is a moderate right and a small left pleural effusion. MEDIASTINUM: Trachea and central airways are patent. HEART: There is cardiac enlargement. There is no right heart strain. VASCULAR:The thoracic aorta is normal in caliber. There is no pulmonary embolus. LYMPH NODES:No suspicious lymphadenopathy. CHEST WALL/AXILLA: Chest wall and axilla are unremarkable. ABDOMEN AND PELVIS: LIVER: Inhomogeneous attenuation of the liver pattern can be seen in passive hepatic congestion. GALLBLADDER AND BILIARY SYSTEM: No obvious ductal dilation. There is enhancement of the wall of the gallbladder with a large amount of pericholecystic fluid. No calcified stones are present in the gallbladder. SPLEEN: There is mild splenomegaly with the spleen measuring 14.0 cm in craniocaudad extent. PANCREAS: The pancreas is unremarkable. ADRENAL GLANDS: The adrenal glands are unremarkable. KIDNEYS AND URETERS: There is no hydronephrosis of the kidneys.Ureters are within normal limits without obstructing urologic calcifications. VASCULATURE: No aneurysm or dissection of the abdominal aorta. No significant atherosclerotic plaque in the abdominal aorta. PERITONEUM/RETROPERITONEUM: Very mild ascites is present with a small amount of perisplenic fluid and a small amount of fluid in the pelvis. LYMPH NODES: No suspicious lymphadenopathy. GASTROINTESTINAL TRACT: The bowel is normal in caliber.No definitive acute inflammatory process is associated with the bowel.The appendix is visualized and is not inflamed. BLADDER: The urinary bladder is significantly distended without edema or wall thickening. REPRODUCTIVE SYSTEM: Reproductive system is unremarkable. BODY WALL: There is a tiny fat-containing umbilical hernia. Mild anasarca of the abdominal wall. BONES: There is a chronic compression fracture of the L1 vertebral body. There is moderate to severe degenerative disc disease at the lumbosacral junction. Old healed fractures are present in the left superior and inferior pubic rami. Old healed posterior left lower rib fractures are present. CT/CT abdomen pelvis w con IMPRESSION: 1. No pulmonary embolus in the chest. 2. Pulmonary edema with moderate right and small left pleural effusions. There are patchy inhomogeneous groundglass opacities throughout both lungs which may be secondary to alveolar edema versus multifocal infection. 3. Enhancement of the gallbladder wall with significant pericholecystic edema/fluid. No calcified stones are present. Further evaluation with right upper quadrant sonography is recommended. 4. Mild ascites. 5. Inhomogeneous attenuation of the liver which can be seen with passive hepatic congestion. Electronically authenticated by: GRICELDA MISTRY Date: 01/13/2024 00:08
--- NOTE | 2024-01-12 20:48 | CT_ITS ---
The [address] [address] Patient Name: JOSE WILL MRN: [id number] date: 1975 Sex: M Assigned Patient Location: ER Current Patient Location: Accession/Order Number: [id number] Exam Date: 01/12/2024 22:35 Report Date: 01/13/2024 00:08 At the request of: DANDY TALAMANTES Procedure: CT angio chest Examination:CT abdomen pelvis w con, CT angio chest INDICATION: Diarrhea, decreased urine output. Atrial fibrillation COMPARISON: CT abdomen and pelvis dated 05/30/2023. No prior chest CT for comparison. TECHNIQUE: Helical CT images were obtained of the chest, abdomen and pelvis after the administration of intravenous contrast. Coronal and sagittal reconstructed images were reviewed. Images through the chest were obtained per PE protocol. FINDINGS: CHEST: LUNGS: There is pulmonary edema in the lungs. There are inhomogeneous groundglass opacities scattered throughout all lobes of each lung which may be secondary to alveolar edema versus multifocal infection. There is thickening along the bronchovascular bundles likely related to edema. PLEURAL CAVITY: There is a moderate right and a small left pleural effusion. MEDIASTINUM: Trachea and central airways are patent. HEART: There is cardiac enlargement. There is no right heart strain. VASCULAR:The thoracic aorta is normal in caliber. There is no pulmonary embolus. LYMPH NODES:No suspicious lymphadenopathy. CHEST WALL/AXILLA: Chest wall and axilla are unremarkable. ABDOMEN AND PELVIS: LIVER: Inhomogeneous attenuation of the liver pattern can be seen in passive hepatic congestion. GALLBLADDER AND BILIARY SYSTEM: No obvious ductal dilation. There is enhancement of the wall of the gallbladder with a large amount of pericholecystic fluid. No calcified stones are present in the gallbladder. SPLEEN: There is mild splenomegaly with the spleen measuring 14.0 cm in craniocaudad extent. PANCREAS: The pancreas is unremarkable. ADRENAL GLANDS: The adrenal glands are unremarkable. KIDNEYS AND URETERS: There is no hydronephrosis of the kidneys.Ureters are within normal limits without obstructing urologic calcifications. VASCULATURE: No aneurysm or dissection of the abdominal aorta. No significant atherosclerotic plaque in the abdominal aorta. PERITONEUM/RETROPERITONEUM: Very mild ascites is present with a small amount of perisplenic fluid and a small amount of fluid in the pelvis. LYMPH NODES: No suspicious lymphadenopathy. GASTROINTESTINAL TRACT: The bowel is normal in caliber.No definitive acute inflammatory process is associated with the bowel.The appendix is visualized and is not inflamed. BLADDER: The urinary bladder is significantly distended without edema or wall thickening. REPRODUCTIVE SYSTEM: Reproductive system is unremarkable. BODY WALL: There is a tiny fat-containing umbilical hernia. Mild anasarca of the abdominal wall. BONES: There is a chronic compression fracture of the L1 vertebral body. There is moderate to severe degenerative disc disease at the lumbosacral junction. Old healed fractures are present in the left superior and inferior pubic rami. Old healed posterior left lower rib fractures are present. CT/CT angio chest IMPRESSION: 1. No pulmonary embolus in the chest. 2. Pulmonary edema with moderate right and small left pleural effusions. There are patchy inhomogeneous groundglass opacities throughout both lungs which may be secondary to alveolar edema versus multifocal infection. 3. Enhancement of the gallbladder wall with significant pericholecystic edema/fluid. No calcified stones are present. Further evaluation with right upper quadrant sonography is recommended. 4. Mild ascites. 5. Inhomogeneous attenuation of the liver which can be seen with passive hepatic congestion. Electronically authenticated by: GRICELDA MISTRY Date: 01/13/2024 00:08
--- NOTE | 2024-01-12 20:48 | ECG_ITS ---
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
--- NOTE | 2024-01-12 20:52 | ED.GENADUL1 ---
Documented by User: MARLEN Villagomez 01/12/24 21:42 HPI HPI - General Adult General Chief complaint: Chest Pain Stated complaint: AFIB RBR Time Seen by Provider: 01/12/24 20:44 Source: patient Mode of arrival: walk-in History of Present Illness HPI narrative: This patient is a 49-year-old male with a history of paroxysmal atrial fibrillation, hypertension and hyperlipidemia who presents to the ER for 4 weeks of upper respiratory symptoms of cough and congestion. He denies chest pain, he has no significant shortness of breath but reports a persistent cough. He states he has had a headache, generalized weakness. He was seen at the [facility] emergency department last week and tested for COVID and flu. He states he had a chest x-ray that initially showed pneumonia but the other 1 showed bronchitis . He states he was discharged with a diagnosis of bronchitis on antibiotics, steroids and a cough medicine. He states he had minimal improvement of his symptoms which have now returned since stopping the medications. He states he was diagnosed with A-fib in the year 1999, he had an ablation in [place] about 10 years ago. He is established with cardiology at the [facility]. He has not had any fevers or vomiting but he does report loose stools, occasional blood in stool. He reports decreased urination over the last 24 hours. He is anticoagulated with Xarelto. Related Data Home Medications ?Medication ?Instructions ?Recorded ?Confirmed atorvastatin 10 mg tablet 10 mg PO DAILY 05/30/23 01/13/24 fluoxetine 20 mg capsule 20 mg PO DAILY 05/30/23 01/13/24 hydroxyzine HCl 10 mg tablet 10 mg PO .EVERY 12 HOURS 05/30/23 01/13/24 lisinopril 5 mg tablet 5 mg PO DAILY 05/30/23 01/13/24 omeprazole 40 mg capsule,delayed 40 mg PO DAILY 05/30/23 01/13/24 release rivaroxaban 20 mg tablet (Xarelto) 20 mg PO DAILY 05/30/23 01/13/24 benzonatate 100 mg capsule 100 mg PO Q6H PRN cough 01/13/24 01/13/24 Previous Rx's ?Medication ?Instructions ?Recorded ondansetron 4 mg disintegrating 4 mg PO Q6H PRN nausea and 05/31/23 tablet vomiting #20 tabs Allergies Allergy/AdvReac Type Severity Reaction Status Date / Time No Known Drug Allergies Allergy Verified 05/30/23 12:20 Opioid HPI Opioid Management Most Recent Opioid Data: Last Pain Scale 5 01/14/24 18:00 Last Pain Assessment 01/14/24 20:25 Last MAR Pain Assessment 01/14/24 17:30 Last ORT Total Score 6 01/13/24 01:52 Last ORT Risk Category Moderate Risk 01/13/24 01:52 Review of Systems ROS Constitutional Denies: fever or chills Ears, nose, mouth, and throat Reports: nasal congestion; Denies: throat pain Cardiovascular Reports: palpitations; Denies: chest pain Respiratory Reports: cough and change in phlegm color; Denies: shortness of breath or coughing up blood Gastrointestinal Reports: nausea and diarrhea; Denies: abdominal pain or vomiting Genitourinary Reports: decreased urine ouput Integumentary/Breast Denies: rash Neurological Reports: headache; Denies: numbness in extremities or weakness in extremities Hematologic/Lymphatic Reports: easy bruising and easy bleeding PFSH PFS Medical History (Updated 01/13/24 @ 12:14 by Shaikh Gabriela MD) Major depression ?F32.9 - Major depressive disorder, single episode, unspecified (ICD-10) HLD (hyperlipidemia) ?E78.5 - Hyperlipidemia, unspecified (ICD-10) Chronic post-traumatic stress disorder (PTSD) after combat ?F43.12 - Post-traumatic stress disorder, chronic (ICD-10) ?Z91.82 - Personal history of deployment (ICD-10) Alcohol abuse, episodic ?F10.10 - Alcohol abuse, uncomplicated (ICD-10) Hiatal hernia with GERD ?K44.9 - Diaphragmatic hernia without obstruction or gangrene (ICD-10) ?K21.9 - Gastro-esophageal reflux disease without esophagitis (ICD-10) Benign essential hypertension ?I10 - Essential (primary) hypertension (ICD-10) Paroxysmal atrial fibrillation ?I48.0 - Paroxysmal atrial fibrillation (ICD-10) Alcohol abuse ?F10.10 - Alcohol abuse, uncomplicated (ICD-10) Hyperventilation ?R06.4 - Hyperventilation (ICD-10) Atrial fibrillation ?I48.91 - Unspecified atrial fibrillation (ICD-10) Social History Smoking status: Never smoker Non-prescribed substance use: cannabis (any form) Highest level of school completed/degree received: some college, no degree Little interest or pleasure in doing things: not at all Feeling down, depressed, or hopeless: not at all Do you think of yourself as: straight/heterosexual Gender Identity: male Exam Narrative Exam Narrative: Gen.: Awake, alert, in no distress Head: Normocephalic, atraumatic ENT: Moist mucous membranes Respiratory: No respiratory distress, lungs clear bilaterally Cardio: Tachycardia Gastrointestinal: Abdomen is soft, nondistended and nontender to palpation Extremities: Moves extremities equally Psych: Normal mood and affect Neuro: No focal neuro deficit Skin: Warm, dry, intact Constitutional Vital Signs, click to edit/add: Last Vital Signs Temp 97.6 F 01/14/24 16:00 Pulse 94 H 01/14/24 21:10 Resp 23 H 01/14/24 21:10 BP 118/94 H 01/14/24 20:53 Pulse Ox 97 01/14/24 18:10 O2 Del Method Nasal Cannula 01/14/24 12:13 O2 Flow Rate 2 01/14/24 12:13 Course Course Hospital Course: 52-year-old male with past medical history of atrial fibrillation diagnosed in 2010 presented to ER for feeling tired and decreased energy for 3 weeks. He also felt heart palpitations along with worsening shortness of breath. In ER, patient was found to have A-fib with RVR with heart rate as high as 190. ED provider ruled out PE via CTA chest that also demonstrated bilateral pleural effusion and pulmonary edema. Patient was initially treated with IV Cardizem and IV Lasix with gradual improvement in his HR and respiratory/volume status. He had an ECHO to assess cardiac structure that revealed acute systolic dysfunction, global hypokinesis. Due this finding, he was switched IV Amiodarone Bolus, and started on Toprol. He was seen by Cardiology and recommended to have LHC due to acute drop in his LVEF. At the time of discharge, he was transitioned to RA, his Amiodarone IV had finished and was started on PO amiodarone. We initially attempted to transfer him [facility] in [place] but due to bed availability, he ended up leaving for [facility] for higher level of care and LHC. Vital Signs Vital signs: Vital Signs Pulse Oximetry 98 01/12/24 20:30 Oxygen Delivery Method Room Air 01/12/24 20:30 Temperature 97.6 F 01/14/24 16:00 Pulse Rate 94 H 01/14/24 21:10 Respiratory Rate 23 H 01/14/24 21:10 Blood Pressure 118/94 H 01/14/24 20:53 Pulse Oximetry 97 01/14/24 18:10 Oxygen Delivery Method Nasal Cannula 01/14/24 12:13 Oxygen Delivery Flow Rate 2 01/14/24 12:13 Medical Decision Making MDM Narrative Medical decision making narrative: 2137: Patient was brought back to an exam room, immediately evaluated with IV established, labs and blood cultures obtained and cardiac monitoring. He was ordered to have Cardizem bolus and was started on a Cardizem drip. His heart rate is steadily improving and maintains normal blood pressure. Labs and CT imaging of the chest/abdomen/pelvis are pending at this time. Case is turned over to attending physician for disposition. SHARED APC VISIT, PHYSICIAN ATTESTATION: [id number] I performed a substantive part of the MDM during the patient?s E/M visit. I personally evaluated and examined the patient. I personally made or approved the documented management plan and acknowledge its risk of complications. Medical Records Medical records reviewed: Yes I reviewed the patient's medical records Lab Data Lab results reviewed: Yes I reviewed the patient's lab results Labs: Lab Results 01/12/24 01/12/24 Range/Units 00:00 20:50 WBC 11.1 H (4.0-11.0) 10^3/uL RBC 4.75 (4.70-6.10) 10^6/uL Hgb 14.7 (14.0-18.0) g/dL Hct 44.8 (42.0-54.0) % MCV 94.3 H (80.0-94.0) fL MCH 30.9 (25.9-34.0) pg MCHC 32.8 (29.9-35.2) g/dL RDW 12.3 (11.0-15.0) % Plt Count 313 (150-450) 10^3/uL MPV 12.6 (9.5-13.5) fL Neut % (Auto) 81.2 H (43.0-75.0) % Lymph % (Auto) 9.9 L (20.5-60.0) % Dolores % (Auto) 7.3 (1.7-12.0) % Eos % (Auto) 0.4 L (0.9-7.0) % Baso % (Auto) 0.7 (0.2-2.0) % Neut # (Auto) 9.0 H (1.4-6.5) 10^3/uL Lymph # (Auto) 1.1 L (1.2-3.8) 10^3/uL Dolores # (Auto) 0.8 (0.3-0.8) 10^3/uL Eos # (Auto) 0.1 (0.0-0.7) 10^3/uL Baso # (Auto) 0.1 (0.0-0.1) 10^3/uL Abs Immat Gran (auto) 0.06 H (0.00-0.03) 10^3/uL Imm/Tot Granulo (auto) 0.5 (0.0-0.5) % PT 13.0 H (9.0-11.6) sec INR 1.25 VBG pH 7.406 (7.330-7.430) VBG pCO2 43.9 (40.0-52.0) mmHg Sodium 133 L (136-145) mmol/L Potassium 3.8 (3.5-5.1) mmol/L Chloride 98 (98-107) mmol/L Carbon Dioxide 28.0 (21.0-32.0) mmol/L Anion Gap 10.8 BUN 16.0 (7.0-18.0) mg/dL Creatinine 1.23 (0.70-1.30) mg/dL Est GFR ( Amer) >60 (>=60) Est GFR (Non-Af Amer) >60 (>=60) BUN/Creatinine Ratio 13.0 Glucose 116 H (74-106) mg/dL Lactate 1.9 (0.4-2.0) mmol/L Calcium 8.5 (8.5-10.1) mg/dL Total Bilirubin 2.1 H (0.2-1.0) mg/dL AST 60 H (15-37) U/L ALT 73 H (16-63) U/L Alkaline Phosphatase 78 (46-116) U/L Troponin I High Sens 15.1 (4.0-76.1) pg/mL NT-Pro-B Natriuret Pep 7337.0 H* (<=900.0) pg/mL Total Protein 6.2 L (6.4-8.2) g/dL Albumin 3.3 L (3.4-5.0) g/dL Globulin 2.9 g/dL Albumin/Globulin Ratio 1.1 TSH 2.548 (0.358-3.740) uIU/mL Urine Color Lt. yellow (YELLOW) Urine Clarity Clear (CLEAR) Urine pH 6.0 (5.0-9.0) Ur Specific [place] 1.020 (1.005-1.025) Urine Protein 30 A (NEG/TRACE) mg/dL Urine Glucose (UA) Negative (NEGATIVE) mg/dL Urine Ketones Negative (NEGATIVE) mg/dL Urine Occult Blood Negative (NEGATIVE) Urine Nitrite Negative (NEGATIVE) Urine Bilirubin Negative (NEGATIVE) Urine Urobilinogen 1.0 (0.2-1.0) EU/dL Ur Leukocyte Esterase Negative (NEGATIVE) Urine RBC 0-2 (0-2) #/HPF Urine WBC None seen (NONE SEEN) #/HPF Ur Squamous Epith Cells Rare (NONE/RARE) #/LPF Urine Crystals None seen (None Seen) #/HPF Urine Bacteria None seen (NONE SEEN) #/HPF Urine Casts None seen (NONE SEEN) #/LPF Urine Mucus None seen (NONE SEEN) Ur Culture Indicated? No Ethanol Quant <3 mg/dL ECG Data Attestation: I personally reviewed and interpreted this ECG as follows: (Atrial fibrillation at a rate of 181, no acute ST elevation or ectopy. EKG reviewed by attending physician) Discharge Plan Discharge Chief Complaint: Chest Pain Clinical Impression: Atrial fibrillation with rapid ventricular response, Pulmonary edema, Pleural effusion, Thickening of wall of gallbladder with pericholecystic fluid Patient Disposition: Admitted As Inpatient Discharge Date/Time: 01/13/24 01:50 Documented by User: José Miguel Mcdaniel MD 01/17/24 06:55 HPI HPI - General Adult General Chief complaint: Chest Pain Stated complaint: AFIB RBR Time Seen by Provider: 01/12/24 20:44 Related Data Home Medications ?Medication ?Instructions ?Recorded ?Confirmed atorvastatin 10 mg tablet 10 mg PO DAILY 05/30/23 01/13/24 fluoxetine 20 mg capsule 20 mg PO DAILY 05/30/23 01/13/24 hydroxyzine HCl 10 mg tablet 10 mg PO .EVERY 12 HOURS 05/30/23 01/13/24 lisinopril 5 mg tablet 5 mg PO DAILY 05/30/23 01/13/24 omeprazole 40 mg capsule,delayed 40 mg PO DAILY 05/30/23 01/13/24 release rivaroxaban 20 mg tablet (Xarelto) 20 mg PO DAILY 05/30/23 01/13/24 benzonatate 100 mg capsule 100 mg PO Q6H PRN cough 01/13/24 01/13/24 Previous Rx's ?Medication ?Instructions ?Recorded ondansetron 4 mg disintegrating 4 mg PO Q6H PRN nausea and 05/31/23 tablet vomiting #20 tabs Allergies Allergy/AdvReac Type Severity Reaction Status Date / Time No Known Drug Allergies Allergy Verified 05/30/23 12:20 Opioid HPI Opioid Management Most Recent Opioid Data: Last Pain Scale 5 01/14/24 18:00 Last Pain Assessment 01/14/24 20:25 Last MAR Pain Assessment 01/14/24 17:30 Last ORT Total Score 6 01/13/24 01:52 Last ORT Risk Category Moderate Risk 01/13/24 01:52 PFSH PFSH Medical History (Updated 01/13/24 @ 12:14 by Shaikh Gabriela MD) Major depression ?F32.9 - Major depressive disorder, single episode, unspecified (ICD-10) HLD (hyperlipidemia) ?E78.5 - Hyperlipidemia, unspecified (ICD-10) Chronic post-traumatic stress disorder (PTSD) after combat ?F43.12 - Post-traumatic stress disorder, chronic (ICD-10) ?Z91.82 - Personal history of deployment (ICD-10) Alcohol abuse, episodic ?F10.10 - Alcohol abuse, uncomplicated (ICD-10) Hiatal hernia with GERD ?K44.9 - Diaphragmatic hernia without obstruction or gangrene (ICD-10) ?K21.9 - Gastro-esophageal reflux disease without esophagitis (ICD-10) Benign essential hypertension ?I10 - Essential (primary) hypertension (ICD-10) Paroxysmal atrial fibrillation ?I48.0 - Paroxysmal atrial fibrillation (ICD-10) Alcohol abuse ?F10.10 - Alcohol abuse, uncomplicated (ICD-10) Hyperventilation ?R06.4 - Hyperventilation (ICD-10) Atrial fibrillation ?I48.91 - Unspecified atrial fibrillation (ICD-10) Social History Smoking status: Never smoker Non-prescribed substance use: cannabis (any form) Highest level of school completed/degree received: some college, no degree Little interest or pleasure in doing things: not at all Feeling down, depressed, or hopeless: not at all Do you think of yourself as: straight/heterosexual Gender Identity: male Exam Constitutional Vital Signs, click to edit/add: Last Vital Signs Temp 97.6 F 01/14/24 16:00 Pulse 94 H 01/14/24 21:10 Resp 23 H 01/14/24 21:10 BP 118/94 H 01/14/24 20:53 Pulse Ox 97 01/14/24 18:10 O2 Del Method Nasal Cannula 01/14/24 12:13 O2 Flow Rate 2 01/14/24 12:13 Course Course Hospital Course: 52-year-old male with past medical history of atrial fibrillation diagnosed in 2010 presented to ER for feeling tired and decreased energy for 3 weeks. He also felt heart palpitations along with worsening shortness of breath. In ER, patient was found to have A-fib with RVR with heart rate as high as 190. ED provider ruled out PE via CTA chest that also demonstrated bilateral pleural effusion and pulmonary edema. Patient was initially treated with IV Cardizem and IV Lasix with gradual improvement in his HR and respiratory/volume status. He had an ECHO to assess cardiac structure that revealed acute systolic dysfunction, global hypokinesis. Due this finding, he was switched IV Amiodarone Bolus, and started on Toprol. He was seen by Cardiology and recommended to have LHC due to acute drop in his LVEF. At the time of discharge, he was transitioned to RA, his Amiodarone IV had finished and was started on PO amiodarone. We initially attempted to transfer him [facility] in [place] but due to bed availability, he ended up leaving for [facility] for higher level of care and [facility]. Vital Signs Vital signs: Vital Signs Pulse Oximetry 98 01/12/24 20:30 Oxygen Delivery Method Room Air 01/12/24 20:30 Temperature 97.6 F 01/14/24 16:00 Pulse Rate 94 H 01/14/24 21:10 Respiratory Rate 23 H 01/14/24 21:10 Blood Pressure 118/94 H 01/14/24 20:53 Pulse Oximetry 97 01/14/24 18:10 Oxygen Delivery Method Nasal Cannula 01/14/24 12:13 Oxygen Delivery Flow Rate 2 01/14/24 12:13 Medical Decision Making MDM Narrative Medical decision making narrative: 2137: Patient was brought back to an exam room, immediately evaluated with IV established, labs and blood cultures obtained and cardiac monitoring. He was ordered to have Cardizem bolus and was started on a Cardizem drip. His heart rate is steadily improving and maintains normal blood pressure. Labs and CT imaging of the chest/abdomen/pelvis are pending at this time. Case is turned over to attending physician for disposition. care transferred at end of PA shift. Patient presented with cough and A. fib with RVR. treated with diltiazem drip. CTA chest and CT abd/pelvis pending. Results returned with finding of pulmonary edema and pleural effusions. Also significant pericholecystic edema/fluid and hepatic congestion. patient examined and his abdomen is nontender. Discussed gallbladder findings with seasonal delivery driver Surgeon who felt the patient could be admitted here at [place]. [place] the pericholecystic findings are related to CHF patient give dose of lasix IVP. Discussed with hospitalist and patient accepted for admission SHARED APC VISIT, PHYSICIAN ATTESTATION: [id number] I performed a substantive part of the MDM during the patient?s E/M visit. I personally evaluated and examined the patient. I personally made or approved the documented management plan and acknowledge its risk of complications. Lab Data Labs: Lab Results 01/12/24 01/12/24 Range/Units 00:00 20:50 WBC 11.1 H (4.0-11.0) 10^3/uL RBC 4.75 (4.70-6.10) 10^6/uL Hgb 14.7 (14.0-18.0) g/dL Hct 44.8 (42.0-54.0) % MCV 94.3 H (80.0-94.0) fL MCH 30.9 (25.9-34.0) pg MCHC 32.8 (29.9-35.2) g/dL RDW 12.3 (11.0-15.0) % Plt Count 313 (150-450) 10^3/uL MPV 12.6 (9.5-13.5) fL Neut % (Auto) 81.2 H (43.0-75.0) % Lymph % (Auto) 9.9 L (20.5-60.0) % Dolores % (Auto) 7.3 (1.7-12.0) % Eos % (Auto) 0.4 L (0.9-7.0) % Baso % (Auto) 0.7 (0.2-2.0) % Neut # (Auto) 9.0 H (1.4-6.5) 10^3/uL Lymph # (Auto) 1.1 L (1.2-3.8) 10^3/uL Dolores # (Auto) 0.8 (0.3-0.8) 10^3/uL Eos # (Auto) 0.1 (0.0-0.7) 10^3/uL Baso # (Auto) 0.1 (0.0-0.1) 10^3/uL Abs Immat Gran (auto) 0.06 H (0.00-0.03) 10^3/uL Imm/Tot Granulo (auto) 0.5 (0.0-0.5) % PT 13.0 H (9.0-11.6) sec INR 1.25 VBG pH 7.406 (7.330-7.430) VBG pCO2 43.9 (40.0-52.0) mmHg Sodium 133 L (136-145) mmol/L Potassium 3.8 (3.5-5.1) mmol/L Chloride 98 (98-107) mmol/L Carbon Dioxide 28.0 (21.0-32.0) mmol/L Anion Gap 10.8 BUN 16.0 (7.0-18.0) mg/dL Creatinine 1.23 (0.70-1.30) mg/dL Est GFR ( Amer) >60 (>=60) Est GFR (Non-Af Amer) >60 (>=60) BUN/Creatinine Ratio 13.0 Glucose 116 H (74-106) mg/dL Lactate 1.9 (0.4-2.0) mmol/L Calcium 8.5 (8.5-10.1) mg/dL Total Bilirubin 2.1 H (0.2-1.0) mg/dL AST 60 H (15-37) U/L ALT 73 H (16-63) U/L Alkaline Phosphatase 78 (46-116) U/L Troponin I High Sens 15.1 (4.0-76.1) pg/mL NT-Pro-B Natriuret Pep 7337.0 H* (<=900.0) pg/mL Total Protein 6.2 L (6.4-8.2) g/dL Albumin 3.3 L (3.4-5.0) g/dL Globulin 2.9 g/dL Albumin/Globulin Ratio 1.1 TSH 2.548 (0.358-3.740) uIU/mL Urine Color Lt. yellow (YELLOW) Urine Clarity Clear (CLEAR) Urine pH 6.0 (5.0-9.0) Ur Specific [place] 1.020 (1.005-1.025) Urine Protein 30 A (NEG/TRACE) mg/dL Urine Glucose (UA) Negative (NEGATIVE) mg/dL Urine Ketones Negative (NEGATIVE) mg/dL Urine Occult Blood Negative (NEGATIVE) Urine Nitrite Negative (NEGATIVE) Urine Bilirubin Negative (NEGATIVE) Urine Urobilinogen 1.0 (0.2-1.0) EU/dL Ur Leukocyte Esterase Negative (NEGATIVE) Urine RBC 0-2 (0-2) #/HPF Urine WBC None seen (NONE SEEN) #/HPF Ur Squamous Epith Cells Rare (NONE/RARE) #/LPF Urine Crystals None seen (None Seen) #/HPF Urine Bacteria None seen (NONE SEEN) #/HPF Urine Casts None seen (NONE SEEN) #/LPF Urine Mucus None seen (NONE SEEN) Ur Culture Indicated? No Ethanol Quant <3 mg/dL Discharge Plan Discharge Chief Complaint: Chest Pain Clinical Impression: Atrial fibrillation with rapid ventricular response, Pulmonary edema, Pleural effusion, Thickening of wall of gallbladder with pericholecystic fluid Patient Disposition: Admitted As Inpatient Discharge Date/Time: 01/13/24 01:50
[2024-01-12] MEDS: 0.9 % SODIUM CHLORIDE 1,000 ML 999 ML IV (21:00)
[2024-01-12] MEDS: DILTIAZEM HCL 25 MG/5 ML VIAL 10 MG IV (21:00)
[2024-01-12] MEDS: dilTIAZem HCL 125 MG in 0.9 % SODIUM CHLORIDE 100 ML 10 MG IV (21:04)
[2024-01-12 21:16] LABS: Basophils Absolute Auto 0.1 10^3/uL (0.0-0.1); Basophils Percent Auto 0.7 % (0.2-2.0); Eosinophils Absolute Auto 0.1 10^3/uL (0.0-0.7); Eosinophils Percent Auto 0.4 % (0.9-7.0); Hematocrit 44.8 % (42.0-54.0); Hemoglobin 14.7 g/dL (14.0-18.0); Immature Granulocytes Abs Auto 0.06 10^3/uL (0.00-0.03); Immature Granulocytes Pct Auto 0.5 % (0.0-0.5); Lymphocytes Absolute Auto 1.1 10^3/uL (1.2-3.8); Lymphocytes Percent Auto 9.9 % (20.5-60.0); Mean Corpuscular HGB Conc 32.8 g/dL (29.9-35.2); Mean Corpuscular Hemoglobin 30.9 pg (25.9-34.0); Mean Corpuscular Volume 94.3 fL (80.0-94.0); Mean Platelet Volume 12.6 fL (9.5-13.5); Monocytes Absolute Auto 0.8 10^3/uL (0.3-0.8); Monocytes Percent Auto 7.3 % (1.7-12.0); Neutrophils Percent Auto 81.2 % (43.0-75.0); PCO2 VBG 43.9 mmHg (40.0-52.0); Platelet Count 313 10^3/uL (150-450); Red Blood Count 4.75 10^6/uL (4.70-6.10); Red Cell Distribution Width 12.3 % (11.0-15.0); White Blood Count 11.1 10^3/uL (4.0-11.0); pH VBG 7.406 (7.330-7.430)
[2024-01-12 21:33] LABS: INR 1.25
[2024-01-12 21:39] LABS: Lactate/Lactic Acid 1.9 mmol/L (0.4-2.0)
[2024-01-12 21:44] LABS: Thyroid Stimulating Hormone 2.548 uIU/mL (0.358-3.740)
[2024-01-12 21:58] LABS: Alanine Aminotransferase 73 U/L (16-63); Albumin Globulin Ratio 1.1; Albumin Level 3.3 g/dL (3.4-5.0); Alkaline Phosphatase 78 U/L (46-116); Anion Gap 10.8; Aspartate Amino Transferase 60 U/L (15-37); Bilirubin Total 2.1 mg/dL (0.2-1.0); Calcium 8.5 mg/dL (8.5-10.1); Chloride 98 mmol/L (98-107); Estimated GFR (African America >60 (>=60); Estimated GFR (Non-African Ame >60 (>=60); Globulin 2.9 g/dL; Glucose 116 mg/dL (74-106); Potassium 3.8 mmol/L (3.5-5.1); Sodium 133 mmol/L (136-145); Total Protein 6.2 g/dL (6.4-8.2); Troponin I High Sensitivity 15.1 pg/mL (4.0-76.1)
[2024-01-13] VITALS (153 sets, daily range): BP systolic 91–159; BP diastolic 71–119; PULSE 71–127; TEMP 36.5–36.9; O2SAT 87–100; BMI 25.6
[2024-01-13 00:19] LABS: Bilirubin Urine NEGATIVE (NEGATIVE); Blood Urine NEGATIVE (NEGATIVE); Clarity Urine CLEAR (CLEAR); Color Urine LT. YELLOW (YELLOW); Glucose Urine UA NEGATIVE (NEGATIVE); Ketones Urine NEGATIVE (NEGATIVE); Leukocyte Esterase Urine NEGATIVE (NEGATIVE); Nitrite Urine NEGATIVE (NEGATIVE); Protein Urine 30 mg/dL (NEG/TRACE)
[2024-01-13 00:24] LABS: Urine Microscopic Indicated YES
[2024-01-13 00:27] LABS: Bacteria Urine NONE SEEN #/HPF (NONE SEEN); Cast Seen? NONE SEEN #/LPF (NONE SEEN); Crystals Seen? None Seen #/HPF (None Seen); Mucus Urine NONE SEEN (NONE SEEN); RBC Urine 0-2 #/HPF (0-2); Squamous Epithelial Cell Urine RARE #/LPF (NONE/RARE); Urine Culture Indicated NO; WBC Urine NONE SEEN #/HPF (NONE SEEN)
[2024-01-13] MEDS: FUROSEMIDE 40 MG/4 ML VIAL IVP ×3 (01:11→21:32)
--- OUTSIDE RECORDS SUMMARY | 2024-01-13 01:47 | XMS_ITS | CCD ---
Author Organization [facility] Care Team Providers [place] [employer] Worker Name Role Phone Gopi Lemus Attending Gopi Chamberlain Admitting Unavaila lior Provider, None Primary Care Unavailable Allergies Allergy Classification Reported Allergen(s) Allergy Type Date of Onset Reaction(s) Facility (1 source) No Known Medication Allergies; Translations: [No Known Medication Allergies] Propensity to adverse reactions to drug (disorder) [facility] Repository Results Test Name Value Interpretation Reference Range Facility ED Clinical Summaryon 2023 ED Clinical Summary [facility] ? Urgent Care [address] [place] [address] Clinical Summary PERSON INFORMATION Name: JOSE HAYNES Age: 48 Years Sex: MALE : 1975 MRN: Acct#: Visit Reason: UC - Wheezing; UC - Cough; WHEEZING, CONGESTION Arrival: 01/06/2024 11:40:21 Discharge: 01/06/2024 12:34:00 LOS: 000 00:54 Check In: 01/06/2024 11:40:21 Checkout: 01/06/2024 12:34:00 Address: [address] [place] [address] PCP: Provider, None PROVIDER INFORMATION Provider Role [...] verbalizes understanding of instructions given Comment: Normal [facility] ED Patient Summaryon 024 ED Patient Summary [facility] ? Urgent Care [address] [place] [address] PATIENT DISCHARGE INSTRUCTIONS Patient Information Name: JOSE [...] Follow these instructions at home: ? Take rjpz-qhp-uukqlrr and prescription medicines only as told by [...] not isamar (more content not included)... Normal [facility] POCT Rapid CoV-2 (COVID-19) Antigen/ Flu A&Bon 01-06-2024 Influenza A POCT Negative Normal Negative [facility] Comment on above: Performed By: #### 6 [id number] #### [facility] (DEFAULT) [address] [place] [address] Influenza B POCT Negative Normal Negative [facility] Comment on above: Performed By: #### 3 [id number] #### [facility] (DEFAULT) [address] [place] [phone] SARS-CoV-2 (COVID-19) RNA ECTOR+probe Ql (Unsp spec) Not detected Normal [facility] Comment on above: Performed By: #### 6 [id number] #### [facility] (DEFAULT) [address] [place] [address] Ur[facility] [place] 024 Urgent Care Record [facility] ? Urgent Care [address] [place] [address] PATIENT DISCHARGE INSTRUCTIONS Patient Information Name: JOSE HAYNES Age: 48 Years Date of : 1975 Reason For Visit: UC - Wheezing; UC - Cough; WHEEZING, CONGESTION Arrival Time: 01/06/2024 11:40:21 Primary Care Physician: Provider, None Attending Physician: Gopi Lemus Comment: Visit Diagnosis: Diagnoses This Visit Bronchitis with wheezing (J40) UC - Cough ([id number]) UC - Wheezing ([id number]) If you received any narcotics, sedation, or [...] and treatment you received today in the [facility] were for an urgent problem and are not intended as complete care. It is important for you to follow up with a doctor, nurse practitioner, or physician?s commissary assistant for ongoing care. If your symptoms [...] so we can reach you if necessary. [facility] Urgent [facility] has provided you with a complete list of medications post discharge. 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 Any specific questions regarding your chronic medications and dosages should be discussed with your primary care physician(s) and/or pharmacist. New Medications [facility] at [address] [phone], [phone] azithromycin (Azithromycin 5 Day Dose Pack 250 [...] mouth) every d (more content not included)... [facility] XR Chest 1 View [place] XR Chest [...] Sincere Guzmán MD 01/06/24 12:26 p Technologist: [facility] CT facial bones wo [facility] CT facial bones wo [facility] [place] [address] CT Scan Report Signed Patient: Jose Haynes MR#: [id number] 02 : 1975 Acct:[id number] Age/Sex: 45 / M ADM Date: 12/27/20 Loc: ER Room: Type: PRE ER Attending Dr: Ordering Provider: JESSICA PROVIDER Date of Service: 12/27/20 CT/CT head/brain wo con: lightheadedness/dizzine ss ([id number]) CT/CT facial bones wo con: fall Copies [...] Alysha Wong M.D.12/27/2020 1:31 PM Dictation Location: [place] [address] Transcribed By: [facility] 12/27/20 1331 Dictated By: Alysha Wong MD 12/27/20 1325 Signed By: 12/27/20 1331 [facility] Complete Blood Count Auto Di ffon 12-27-2020 Basophils (Bld) [#/Vol] 0.1 10*3/uL Normal 0.0-0.2 [facility] Comment on above: Result Comment: PERF ORMED BY: [place] [address] PATHOLOGIST SUPERVISOR THROWING DEPARTMENT MARCUS GONZALEZ M.D. Performed By: #### C K, CBC, CMP, CKMB, HS TROP #### [address] Basophils/100 WBC (Bld) 0.5 % Normal . [facility] Comment on above: Performed By: #### C K, CBC, CMP, CKMB, HS TROP #### [address] Eosinophils (Bld) [#/Vol] 0.2 10*3/uL Normal 0.0-0.45 [facility] Comment on above: Performed By: #### C K, CBC, CMP, CKMB, HS TROP #### [address] Eosinophils/100 WBC (Bld) 1.4 % Normal . [facility] Comment on above: Performed By: #### C K, CBC, CMP, CKMB, HS TROP #### [address] Erythrocyte distribution width (RBC) [Ratio] 13.5 % Normal 12.0-14.8 [facility] Comment on above: Performed By: #### C K, CBC, CMP, CKMB, HS TROP #### [address] Hematocrit (Bld) [Volume fraction] 50.0 % Normal 38.8-50.0 [facility] Comment on above: Performed By: #### C K, CBC, CMP, CKMB, HS TROP #### [address] Hemoglobin (Bld) [Mass/Vol] 17.1 g/dL High 13.0-17.0 [facility] Comment on above: Performed By: #### C K, CBC, CMP, CKMB, HS TROP #### [place] [address] [place] Lymphocytes (Bld) [#/Vol] 1.6 10*3/uL Normal 1.00-4.8 [facility] Comment on above: Performed By: #### C K, CBC, CMP, CKMB, HS TROP #### [address] Lymphocytes/100 WBC (Bld) 15.3 % Normal . [facility] Comment on above: Performed By: #### C K, CBC, CMP, CKMB, HS TROP #### [address] MCH (RBC) [Entitic mass] 30.9 pg Normal 27.5-35.2 [facility] Comment on above: Performed By: #### C K, CBC, CMP, CKMB, HS TROP #### [address] MCV (RBC) [Entitic vol] 90.6 fL Normal 83.5-101 [facility] Comment on above: Performed By: #### C K, CBC, CMP, CKMB, HS TROP #### [address] Mean Corpuscular HGB Conc 34.1 g/dL Normal 32.5-35.6 [facility] Comment on above: Performed By: #### C K, CBC, CMP, CKMB, HS TROP #### [address] Monocytes (Bld) [#/Vol] 0.6 10*3/uL Normal 0.0-0.8 [facility] Comment on above: Performed By: #### C K, CBC, CMP, CKMB, HS TROP #### [place] [address] [place] Monocytes/100 WBC (Bld) 5.9 % Normal . [facility] Comment on above: Performed By: #### C K, CBC, CMP, CKMB, HS TROP #### [address] Neutrophils (Bld) [#/Vol] 8.3 10*3/uL High 1.8-7.7 [facility] Comment on above: Performed By: #### C K, CBC, CMP, CKMB, HS TROP #### [address] Neutrophils/100 WBC (Bld) 76.9 % Normal . [facility] Comment on above: Performed By: #### C K, CBC, CMP, CKMB, HS TROP #### [address] Nucleated RBC/100 WBC (Bld) [Ratio] 0.1 % Normal 0-0.5 [facility] Comment on above: Performed By: #### C K, CBC, CMP, CKMB, HS TROP #### [address] Platelet mean volume (Bld) [Entitic vol] 9.6 fL Normal 6.6-10.1 [facility] Comment on above: Performed By: #### C K, CBC, CMP, CKMB, HS TROP #### [address] Platelets (Bld) [#/Vol] 344 10*3/uL Normal 150-450 [facility] Comment on above: Performed By: #### C K, CBC, CMP, CKMB, HS TROP #### [address] RBC (Bld) [#/Vol] 5.52 10*6/uL Normal 3.90-5.60 [facility] Comment on above: Performed By: #### C K, CBC, CMP, CKMB, HS TROP #### [address] WBC (Bld) [#/Vol] 10.7 10*3/uL Normal 4.5-11.0 [facility] Comment on above: Performed By: #### C K, CBC, CMP, CKMB, HS TROP #### [address] Comprehensive Metabolic Pane enedina 12-27-2020 Albumin [Mass/Vol] 4.0 g/dL Normal 3.2-5.5 [facility] Comment on above: Performed By: #### C K, CBC, CMP, CKMB, HS TROP #### [address] Albumin/Globulin [Mass ratio] 1.7 {ratio} Normal [facility] Comment on above: Performed By: #### C K, CBC, CMP, CKMB, HS TROP #### [address] ALP [Catalytic activity/Vol] 51 U/L Normal 32-92 [facility] Comment on above: Performed By: #### C K, CBC, CMP, CKMB, HS TROP #### [address] ALT [Catalytic activity/Vol] 27 U/L Normal 10-60 [facility] Comment on above: Performed By: #### C K, CBC, CMP, CKMB, HS TROP #### [address] AST [Catalytic activity/Vol] 24 U/L Normal 10-42 [facility] Comment on above: Performed By: #### C K, CBC, CMP, CKMB, HS TROP #### [address] Bilirubin [Mass/Vol] 0.7 mg/dL Normal 0.3-1.2 [facility] Comment on above: Performed By: #### C K, CBC, CMP, CKMB, HS TROP #### [address] Calcium [Mass/Vol] 8.9 mg/dL Normal 8.2-10.2 [facility] Comment on above: Performed By: #### C K, CBC, CMP, CKMB, HS TROP #### [address] Chloride [Moles/Vol] 103 mmol/L Normal 95-114 [facility] Comment on above: Performed By: #### C K, CBC, CMP, CKMB, HS TROP #### [facility] [address] CO2 [Moles/Vol] 23.3 mmol/L Normal 22.0-30.0 [facility] Comment on above: Performed By: #### C K, CBC, CMP, CKMB, HS TROP #### [address] Creatinine [Mass/Vol] 0.96 mg/dL Normal 0.64-1.27 [facility] Comment on above: Performed By: #### C K, CBC, CMP, CKMB, HS TROP #### [address] Creatinine Clr Calc Pharmacy 105.53 [facility] Comment on above: Result Comment: PERF ORMED BY: [place] [address] PATHOLOGIST SUPERVISOR THROWING DEPARTMENT MARCUS GONZALEZ M.D. Performed By: #### C K, CBC, CMP, CKMB, HS TROP #### [address] Estimated GFR ( Sandra > 60 [facility] Comment on above: Result Comment: GFR estimated reference range: According to KDOQI guidelines, <60 ml/min/1.73m2 is sufficient to diagnose a patient with chronic kidney disease. Performed By: #### C K, CBC, CMP, CKMB, HS TROP #### [address] Estimated GFR (Non- Am > 60 [facility] Comment on above: Performed By: #### C K, CBC, CMP, CKMB, HS TROP #### [address] Globulin (S) [Mass/Vol] 2.4 g/dL [facility] Comment on above: Performed By: #### C K, CBC, CMP, CKMB, HS TROP #### [address] Glucose [Mass/Vol] 87 mg/dL Normal 70-100 [facility] Comment on above: Result Comment: Outlook Glucose Reference Range is dependent on time and content of last meal. Glucose of more than 200 mg/dL in a nonstressed, ambulatory subject supports the diagnosis of Diabetes Mellitus. ADA recommended reference range Performed By: #### C K, CBC, CMP, CKMB, HS TROP #### [address] Potassium [Moles/Vol] 4.0 mmol/L Normal 3.5-5.1 [facility] Comment on above: Performed By: #### C K, CBC, CMP, CKMB, HS TROP #### [address] Protein [Mass/Vol] 6.4 g/dL Normal 6.1-7.9 [facility] Comment on above: Performed By: #### C K, CBC, CMP, CKMB, HS TROP #### [address] Sodium [Moles/Vol] 137 mmol/L Normal 136-146 [facility] Comment on above: Performed By: #### C K, CBC, CMP, CKMB, HS TROP #### [address] Urea nitrogen [Mass/Vol] 10 mg/dL Normal 9-23 [facility] Comment on above: Performed By: #### C K, CBC, CMP, CKMB, HS TROP #### [place] [address] [place] Creatine Kinaseon 12-27-2020 CK [Catalytic activity/Vol] 131 U/L Normal 22-269 [facility] Comment on above: Performed By: #### C K, CBC, CMP, CKMB, HS TROP #### [place] [address] [place] Creatinine Kinase MBon 12-27 CK.MB [Mass/Vol] 3.1 ng/mL Normal 0.6-6.3 [facility] Comment on above: Performed By: #### C K, CBC, CMP, CKMB, HS TROP #### [facility] [address] [place] [address] [place] CKMB Relative Index 2.3 % Normal 0.00-2.50 [facility] Comment on above: Performed By: #### C K, CBC, CMP, CKMB, HS TROP #### [facility] [address] [place] [address] [place] Dipstick and Microscopicon 0 12-27-2020 Appearance (U) Clear Normal Clear [facility] Comment on above: Order Comment: Name Collection Type:: Clean-Voided Midstream Performed By: #### A DDONUAPLUS #### [facility] [address] [place] [address] [place] Bacteria,Urine None Seen Normal None Seen [facility] Comment on above: Order Comment: Name Collection Type:: Clean-Voided Midstream Performed By: #### A DDONUAPLUS #### [facility] [address] [place] [address] [place] Bilirubin,Urine Negative Normal Negative [facility] Comment on above: Order Comment: Name Collection Type:: Clean-Voided Midstream Performed By: #### A DDONUAPLUS #### [facility] [address] [place] [address] [place] Color (U) Yellow Normal Yellow [facility] Comment on above: Order Comment: Name Collection Type:: Clean-Voided Midstream Performed By: #### A DDONUAPLUS #### [facility] [address] [place] [address] [place] Glucose Ql (U) Normal Normal Normal [facility] Comment on above: Order Comment: Name Collection Type:: Clean-Voided Midstream Performed By: #### A DDONUAPLUS #### [facility] [address] [place] [address] [place] Hyaline Casts,Urine None Seen Normal 0-8 [facility] Comment on above: Order Comment: Name Collection Type:: Clean-Voided Midstream Result Comment: PERF ORMED BY: [place] [address] PATHOLOGIST SUPERVISOR THROWING DEPARTMENT JIANLAN SUN M.D. Performed By: #### A DDONUAPLUS #### [facility] [address] [place] [address] Ketones Ql (U) Negative Normal Negative [facility] Comment on above: Order Comment: Name Collection Type:: Clean-Voided Midstream Performed By: #### A DDONUAPLUS #### [address] Leukocyte esterase Test strip Ql (U) 1+ High Negative [facility] Comment on above: Order Comment: Name Collection Type:: Clean-Voided Midstream Performed By: #### A DDONUAPLUS #### [place] [address] [place] Nitrite,Urine Negative Normal Negative [facility] Comment on above: Order Comment: Name Collection Type:: Clean-Voided Midstream Performed By: #### A DDONUAPLUS #### [place] [address] [place] Occult Blood,Urine Negative Normal Negative [facility] Comment on above: Order Comment: Name Collection Type:: Clean-Voided Midstream Result Comment: PERF ORMED BY: [place] [address] PATHOLOGIST SUPERVISOR THROWING DEPARTMENT MARCUS GONZALEZ M.D. Performed By: #### A DDONUAPLUS #### [place] [address] [place] pH (U) 6.0 [pH] Normal 5.0-9.0 [facility] Comment on above: Order Comment: Name Collection Type:: Clean-Voided Midstream Performed By: #### A DDONUAPLUS #### [place] [address] [place] Protein,Urine Negative Normal Negative [facility] Comment on above: Order Comment: Name Collection Type:: Clean-Voided Midstream Performed By: #### A DDONUAPLUS #### [place] [address] [place] RBC,Urine None Seen Normal 0-4 [facility] Comment on above: Order Comment: Name Collection Type:: Clean-Voided Midstream Performed By: #### A DDONUAPLUS #### [address] Specificy [place],Urine 1.007 Normal 1.001-1.030 [facility] Comment on above: Order Comment: Name Collection Type:: Clean-Voided Midstream Performed By: #### A DDONUAPLUS #### [address] Squamous Epithelial Cell,Urine 0-1 Normal 0-2 [facility] Comment on above: Order Comment: Name Collection Type:: Clean-Voided Midstream Performed By: #### A DDONUAPLUS #### [address] Urobilinogen,Urine Normal Normal Normal [facility] Comment on above: Order Comment: Name Collection Type:: Clean-Voided Midstream Performed By: #### A DDONUAPLUS #### [address] WBC,Urine 3-4 Normal 0-4 [facility] Comment on above: Order Comment: Name Collection Type:: Clean-Voided Midstream Performed By: #### A DDONUAPLUS #### [address] ECG 12 lead ECGon 12-27-2020 ECG 12 lead ECG [facility] [place] [address] Electrocardiograph Report Signed Patient: Jose Haynes MR#: [id number] 02 : 1975 Acct:[id number] Age/Sex: 45 / M ADM Date: 12/27/20 Loc: ER Room: Type: [facility] ER Attending Dr: Ordering Provider: Sonya Glasgow [...] Inferior leads Confirmed by LORETTA CARR DO ([id number]) on 12/27/2020 8:08:05 PM Referred By: Electronically Signed By:LORETTA CARR DO Transcribed By: MUS Signed By Loretta Carr DO 12/27 [facility] ECG 12 lead ECG [facility] Main [place] [address] [place] [address] Electrocardiograph Report Signed Patient: Jose Haynes MR#: [id number] 02 : 1975 Acct:[id number] Age/Sex: 45 / M ADM Date: 12/27/20 Loc: ER Room: Type: [facility] ER Attending Dr: Ordering Provider: KALI LOPEZ [...] ECGs available Confirmed by LORETTA CARR DO ([id number]) on 12/27/2020 8:07:57 PM Referred By: Electronically Signed By:LORETTA CARR DO Transcribed By: MUS Signed By Loretta Carr DO 12/27 [facility] Troponin I High Sensitivityo n 12-27-2020 Troponin I High Sensitivity 4 pg/mL Normal 0-20 [facility] Comment on above: Result Comment: PERF ORMED BY: [place] [address] PATHOLOGIST SUPERVISOR THROWING DEPARTMENT MARCUS GONZALEZ M.D. Performed By: #### C K, CBC, CMP, CKMB, HS TROP #### [facility] [address] [place] [address] [place] Encounters Encounter Date Encounter Type Care Provider Facility Start: 01-06-2024 End: 01-06-2024 ambulatory Gopi GEE Facility:[facility] Payers Date Payer Category Payer [employer] [id number] 1975 Unknown [id number] Clinical Note 01-06-2024 Note Date & Type [...] Follow these instructions at home: ? Take diwb-oli-gsoeynd and prescription medicines only as told by [...] and water are not available, use hand geospatial scientist. ? Avoid contact with people who have [...] is easier to cough up. ? Take eplx-hok-zeajm (more content not included)... [facility] Summary Purpose Family History No Family History Records FoundNo Family History Records Found Advance Directives No Advanced Directives Records FoundNo Advanced Directives Records Found Additional Source Comments (unrecognized sect ion and content) No Status Records FoundNo Status Records Found INFORMATION SOURCE (unrecogn ized section and content) DATE CREATED AUTHOR 05/27/2021 [facility] DATE CREATED AUTHOR AUTHOR'S STEVE FLORIAN 2024 [facility] FOR RECORDS PERTAINING TO PATIENTS WHO ARE [...] BE BASED ON THE PRIMARY CLINICAL RECORDS. [employer] provides no warranty or guarantee of the accuracy or completeness of information in this document.
[2024-01-13 02:13] LABS: Ethanol <3 mg/dL
[2024-01-13] MEDS: dilTIAZem HCL 125 MG in 0.9 % SODIUM CHLORIDE 100 ML 15 MG IV (05:38)
[2024-01-13 05:42] LABS: Basophils Absolute Auto 0.1 10^3/uL (0.0-0.1); Basophils Percent Auto 0.7 % (0.2-2.0); Eosinophils Absolute Auto 0.1 10^3/uL (0.0-0.7); Eosinophils Percent Auto 1.2 % (0.9-7.0); Hematocrit 41.6 % (42.0-54.0); Immature Granulocytes Abs Auto 0.03 10^3/uL (0.00-0.03); Immature Granulocytes Pct Auto 0.4 % (0.0-0.5); Lymphocytes Absolute Auto 1.4 10^3/uL (1.2-3.8); Lymphocytes Percent Auto 18.7 % (20.5-60.0); Mean Corpuscular HGB Conc 33.7 g/dL (29.9-35.2); Mean Corpuscular Hemoglobin 31.4 pg (25.9-34.0); Mean Corpuscular Volume 93.3 fL (80.0-94.0); Mean Platelet Volume 12.2 fL (9.5-13.5); Monocytes Absolute Auto 0.6 10^3/uL (0.3-0.8); Monocytes Percent Auto 8.2 % (1.7-12.0); Neutrophils Absolute Auto 5.1 10^3/uL (1.4-6.5); Neutrophils Percent Auto 70.8 % (43.0-75.0); Platelet Count 213 10^3/uL (150-450); Red Blood Count 4.46 10^6/uL (4.70-6.10); Red Cell Distribution Width 12.2 % (11.0-15.0); White Blood Count 7.2 10^3/uL (4.0-11.0)
[2024-01-13 06:01] LABS: Alanine Aminotransferase 67 U/L (16-63); Albumin Globulin Ratio 1.3; Alkaline Phosphatase 69 U/L (46-116); Anion Gap 14.5; Aspartate Amino Transferase 52 U/L (15-37); BUN Creatinine Ratio 13.6; Carbon Dioxide 28.1 mmol/L (21.0-32.0); Chloride 99 mmol/L (98-107); Estimated GFR (African America >60 (>=60); Estimated GFR (Non-African Ame >60 (>=60); Globulin 2.4 g/dL; Glucose 91 mg/dL (74-106); Potassium 3.6 mmol/L (3.5-5.1); Sodium 138 mmol/L (136-145); Total Protein 5.4 g/dL (6.4-8.2); Troponin I High Sensitivity 17.3 pg/mL (4.0-76.1)
--- NOTE | 2024-01-13 06:56 | US_ITS ---
[address] [address] Patient Name: JOSE WILL MRN: [facility]:[id number] date: 1975 Sex: M Assigned Patient Location: ICU Current Patient Location: ICU Accession/Order Number: [id number] Exam Date: 01/13/2024 08:30 Report Date: 01/13/2024 09:25 At the request of: SHAIKH MARKUS Procedure: US right upper quadrant PROCEDURE: US right upper quadrant, 01/13/2024 8:30 AM EDT CLINICAL INDICATIONS: Abnormal CT assessment, cholecystitis COMPARISON: CT abdomen and pelvis 01/12/2024 TECHNIQUE: Right upper quadrant abdominal sonogram, grayscale, color evaluation. FINDINGS: Visualized pancreas is unremarkable. No ductal dilatation is seen. Portions of head and tail segments are obscured. Right lobe liver is normal in size. Visualized portal vein patent, antegrade phasic flow, normal velocity. Visualized hepatic vasculature are patent. Hepatic parenchyma is normal in morphology and echogenicity. Hepatic contour is smooth. Focal hepatic abnormality is not seen. Right pleural effusion is seen. Gallbladder is nondistended. Calculus is not seen. There is wall thickening up to 0.8 cm pericholecystic edema noted. There is no localized pain. Common bile duct is normal 0.5 cm. Right kidney is normal in morphology. It measures 10.4 x 5.3 x 6.5 cm. No hydronephrosis or shadowing calculus is identified. Focal renal abnormality is not demonstrated. No ascites. US/US right upper quadrant IMPRESSION: 1. Gallbladder is nondistended. There is diffuse wall thickening, pericholecystic edema, no localized pain is reported. No bile duct dilatation seen. Etiology of this process remains indeterminate. Acalculus cholecystitis, low protein state, hepatitis, incomplete distention may all present this pattern. If of clinical merit, nuclear medicine hepatobiliary imaging recommended in this regard. 2. Right pleural effusion 3. No additional right upper quadrant abdominal pathology 4. Incomplete pancreas assessment Electronically authenticated by: DEANNA STARK Date: 01/13/2024 09:25
--- NOTE | 2024-01-13 07:00 | CA_ITS ---
Patient Name: JOSE WILL MR#: [id number] : 1975 Exam Date: 01/13/2024 Ordering Doctor: MARCELO BELLE ECHOCARDIOGRAM REPORT PROCEDURE: CA ECHO DOPPLER COMPLETE INDICATIONS: A-fib w/rvr, Chest pain COMPARISON: None. DESCRIPTION: COMPLETE ECHOCARDIOGRAM Real-time transthoracic echocardiography with 2D, M-mode, spectral and color flow Doppler performed. QUALITY: Technical quality was good. LEFT VENTRICLE: Moderate dilatation. Borderline left ventricular hypertrophy. LV EF: Global left ventricular systolic function is severely reduced; visually estimated ejection fraction is 20 to 25%. Diffuse hypokinesis. DIASTOLIC: Not adequately assessed due to heart rhythm. ATRIAL SEPTUM: Inadequately seen. LEFT ATRIUM: Severe dilatation. RIGHT ATRIUM: Severe dilatation. RIGHT VENTRICLE: Moderate dilatation. Decreased right ventricular systolic function. TRICUSPID VALVE: Normal mobility and thickness. Moderate to severe regurgitation. Mild pulmonary hypertension. RVSP 38mmHg MITRAL VALVE: Normal mobility and thickness. No evidence of mitral valve stenosis. There is no mitral annular calcification. Severe mitral regurgitation. AORTIC VALVE: Normal trileaflet appearance. No visible sclerosis. Normal leaflet mobility. No evidence of aortic valve stenosis. No aortic regurgitation. AORTIC ROOT: Normal diameter and appearance. PULMONIC VALVE: Normal thickness and mobility. No stenosis. Trivial regurgitation. PERICARDIUM: Trivial pericardial effusion. IVC: Normal size with partial collapse. CONCLUSION: 1. Global left ventricular systolic function is severely reduced; visually estimated ejection fraction is 20 to 25% 2. The left ventricle is moderately dilated 3. Borderline left ventricular hypertrophy 4. The right ventricle is moderately dilated with significantly reduced systolic function 5. Severe biatrial dilatation 6. Moderate to severe tricuspid regurgitation 7. Mildly elevated right ventricular systolic pressure; RVSP 38 mmHg 8. Severe mitral regurgitation 9. Trivial pericardial effusion Adult Echocardiography Procedure Report Left Ventricle LVEDD (3.7 - 5.6 cm): 6.61 cm LVESD (2.2 - 4.0 cm): 5.43 cm LVIVS thickness (0.6 - 1.2 cm): 1.20 cm LVPW thickness (0.5 - 1.0 cm): 0.87 cm e': 0.17 m/s E - e': 6.72 LVOT Max Gradient: 2.21 mm[Hg], 2.21 mm[Hg] LVOT Area (cm2): 0.74 m/s Peak Velocity (LVOT): 0.74 m/s, 0.74 m/s Mean Velocity (LVOT): 0.54 m/s LVOT Diameter 2.28 cm Left Ventricular Ejection Fraction: 36.90 % Left Atrium LA Volume Index (2D A2C): 99.27 ml/m2 Left Atrium Systolic Dimension: 5.97 cm Mitral Valve MV E to A Ratio: 134.78 Mitral Valve A-Wave Peak Velocity: 0.01 m/s Mitral Valve E-Wave Peak Velocity: 1.13 m/s Right Ventricle RV Internal Diastolic Dimension: 4.56 cm Aorta AO Root Diam: 3.23 cm Ascending Ao Diam: 3.40 cm Aortic Valve AoV Area (Peak Rogers): 2.52 cm2, 2.52 cm2 AoV Area (VTI): 2.65 cm2, 2.68 cm2 Peak Velocity(Antegrade Flow): 1.20 m/s Peak Gradient(Antegrade Flow): 5.78 mm[Hg] Mean Velocity(Antegrade Flow): 0.85 m/s Mean Gradient(Antegrade Flow): 3.29 mm[Hg] Velocity Time Integral: 22.32 cm Tricuspid Valve Peak Velocity (Regurgitant Flow): 2.35 m/s, 2.47 m/s, 2.50 m/s, 2.76 m/s Pulmonic Valve Peak Velocity: 0.82 m/s Peak Gradient: 2.44 mm[Hg], 2.96 mm[Hg] Right Atrium Right Atrium Systolic Pressure: 190.56 ml, 190.56 ml Dictated by: Som Duran M.D. on 01/13/2024 at 09:42 Approved by: Som Duran M.D. on 01/13/2024 at 09:46
[2024-01-13] MEDS: METRONIDAZOLE/SODIUM CHLORIDE 500 MG/100 ML PREMIX 100 MG IV ×2 (10:25→16:33)
[2024-01-13] MEDS: CEFTRIAXONE 1,000 MG in 0.9 % SODIUM CHLORIDE 50 ML 100 MG IV (10:26)
[2024-01-13] MEDS: OMEPRAZOLE 40 MG CAPSULE.DR PO (10:27)
[2024-01-13] MEDS: RIVAROXABAN 10 MG TABLET 20 MG PO (10:27)
[2024-01-13] MEDS: HYDROXYZINE HCL 10 MG TABLET PO ×2 (10:28→21:32)
[2024-01-13] MEDS: FLUOXETINE HCL 20 MG CAPSULE PO (10:28)
[2024-01-13] MEDS: LISINOPRIL 5 MG TABLET PO (10:28)
--- NOTE | 2024-01-13 11:12 | CM.NOTE ---
Rounds made with Dr. Ochoa, discussed with pt echo results and A-fib. Consult placed to cardiology for further recommendations. [place] attempting to get pt's past records from [facility]. Pt does believe he has had a past stress test and cardiac echo.
--- NOTE | 2024-01-13 11:52 | P.HP_ITS ---
HPI H&P: HPI History of Present Illness Chief complaint: AFIB RBR Narrative: 52-year-old male with past medical history of atrial fibrillation diagnosed in 2010 presented to ER last night after feeling tired/unwell/decreased energy for past 3 weeks. Also reports feeling heart palpitations along with worsening shortness of breath that is worse when he lays down. He also reports anorexia, nausea and inability to keep anything down for past 2 to 3 weeks. He also has a cough for past 1 week. He was seen in urgent care about a week ago and was told that he has pneumonia for which she was given prednisone and azithromycin. In ER, patient was found to have A-fib with RVR with heart rate as high as 190. He also had a CTA chest to rule out pulmonary embolism that demonstrated bilateral pleural effusion and pulmonary edema. Patient was started on IV Cardizem drip overnight with improvement in his heart rate and was also given IV Lasix to which she responded well with good urine output. At the time of my evaluation, patient was still hypoxic requiring 3 L of oxygen via nasal cannula, appeared short of breath during conversation but reported overall feeling a little bit better compared to when he arrived. He denies abdominal pain and prior history of cholelithiasis. On CT abdomen pelvis gallbladder thickening along with Yamila-cholecystic fluid was noted concerning for possible acalculous cholecystitis. Patient reports being diagnosed with A-fib in 2010. He denies history of congestive heart failure. According to him he had a left heart catheterization at the time of diagnosis and he was told that he did not have any coronary artery disease. Subsequently he had nuclear stress test done in about 2017 which was normal according to him. He is unsure about the ER it was performed. Patient drinks alcohol daily and reports about 6 cans of beers daily use. He de nies smoking but chews tobacco. Reports intermittent marijuana use but no significant drug use Opioid HPI Opioid Management Most Recent Pain and Opioid Data: Last Pain Assessment 01/13/24 06:10 Last ORT Total Score 6 01/13/24 01:52 Last ORT Risk Category Moderate Risk 01/13/24 01:52 Review of Systems ROS Status of ROS 10 or more systems reviewed and unremark able except as noted in history and below [facility] Medical History (Updated 01/13/24 @ 12:14 by Shaikh Gabriela MD) Major depression ?F32.9 - Major depressive disorder, single episode, unspecified (ICD-10) HLD (hyperlipidemia) ?E78.5 - Hyperlipidemia, unspecified (ICD-10) Chronic post-traumatic stress disorder (PTSD) after combat ?F43.12 - Post-traumatic stress disorder, chronic (ICD-10) ?Z91.82 - Personal history of deployment (ICD-10) Alcohol abuse, episodic ?F10.10 - Alcohol abuse, uncomplicated (ICD-10) Hiatal hernia with GERD ?K44.9 - Diaphragmatic hernia without obstruction or gangrene (ICD-10) ?K21.9 - Gastro-esophageal reflux disease without esophagitis (ICD-10) Benign essential hypertension ?I10 - Essential (primary) hypertension (ICD-10) Paroxysmal atrial fibrillation ?I48.0 - Paroxysmal atrial fibrillation (ICD-10) Alcohol abuse ?F10.10 - Alcohol abuse, uncomplicated (ICD-10) Hyperventilation ?R06.4 - Hyperventilation (ICD-10) Atrial fibrillation ?I48.91 - Unspecified atrial fibrillation (ICD-10) Social History Smoking status: Never smoker Non-prescribed substance use: cannabis (any form) Highest level of school completed/degree received: some college, no degree Little interest or pleasure in doing things: not at all Feeling down, depressed, or hopeless: not at all Do you think of yourself as: straight/heterosexual Gender Identity: male Meds Home Medications and Allergies Home Medications ?Medication ?Instructions ?Recorded ?Confirmed ?Type atorvastatin 10 mg tablet 10 mg PO DAILY 05/30/23 01/13/24 History fluoxetine 20 mg capsule 20 mg PO DAILY 05/30/23 01/13/24 History hydroxyzine HCl 10 mg tablet 10 mg PO .EVERY 12 HOURS 05/30/23 01/13/24 History lisinopril 5 mg tablet 5 mg PO DAILY 05/30/23 01/13/24 History omeprazole 40 mg capsule,delayed 40 mg PO DAILY 05/30/23 01/13/24 History release rivaroxaban 20 mg tablet (Xarelto) 20 mg PO DAILY 05/30/23 01/13/24 History ondansetron 4 mg disintegrating 4 mg PO Q6H PRN nausea and 05/31/23 01/13/24 Rx tablet vomiting #20 tabs benzonatate 100 mg capsule 100 mg PO Q6H PRN cough 01/13/24 01/13/24 History Allergies Allergy/AdvReac Type Severity Reaction Status Date / Time No Known Drug Allergies Allergy Verified 05/30/23 12:20 Exam Constitutional Vital Signs, click to edit/add: Last Vital Signs Temp 97.7 F 01/13/24 01:52 Pulse 98 H 01/13/24 06:30 Resp 24 H 01/13/24 06:30 BP 132/94 H 01/13/24 10:26 Pulse Ox 92 L 01/13/24 10:38 O2 Del Method Nasal Cannula 01/13/24 10:38 O2 Flow Rate 3 01/13/24 10:38 Common normals: no apparent distress, average body habitus and oriented x3 General appearance: in distress respiratory Respiratory Common normals: no use of accessory muscles Effort & inspection: able to speak in complete sentences and tachypneic Auscultation: rales bilateral and diminished lung sounds bilateral in the lower lung brooks Other: Conversational dyspnea noted. Cardio Common normals: regular rate, S1 normal heart sound and S2 normal heart sound Jugular venous distention: JVD to the level of the angle of the jaw Rhythm: abnormal rhythm GI Common normals: Normal to inspection, nondistended, normoactive bowel sounds present, soft to palpation, non-tender and no hepatosplenomegaly Extremity Common normals: normal to inspection and full ROM Neuro Common normals: oriented x3, moves all extremities, no focal motor deficits, no sensory deficits noted and gait normal Psych Common normals: mental status grossly normal, thought process normal, denies homicidal ideation and denies suicidal ideation Results Labs Labs: Short CBC 01/12/24 01/13/24 Range/Units 20:50 05:24 WBC 11.1 H 7.2 (4.0-11.0) 10^3/uL Hgb 14.7 14.0 (14.0-18.0) g/dL Hct 44.8 41.6 L (42.0-54.0) % Plt Count 313 213 (150-450) 10^3/uL BMP 01/12/24 01/13/24 20:50 05:24 Sodium 133 L 138 Potassium 3.8 3.6 Chloride 98 99 Carbon Dioxide 28.0 28.1 BUN 16.0 14.0 Creatinine 1.23 1.03 Glucose 116 H 91 Calcium 8.5 8.0 L Liver Function 01/12/24 01/13/24 Range/Units 20:50 05:24 Total Bilirubin 2.1 H 2.0 H (0.2-1.0) mg/dL AST 60 H 52 H (15-37) U/L ALT 73 H 67 H (16-63) U/L Alkaline Phosphatase 78 69 (46-116) U/L Albumin 3.3 L 3.0 L (3.4-5.0) g/dL Urine 01/12/24 Range/Units 00:00 Urine Color Lt. yellow (YELLOW) Urine Clarity Clear (CLEAR) Urine pH 6.0 (5.0-9.0) Ur Specific [place] 1.020 (1.005-1.025) Urine Protein 30 A (NEG/TRACE) mg/dL Urine Glucose (UA) Negative (NEGATIVE) mg/dL ABG ABG results: 01/12/24 20:50 VBG pH 7.406 VBG pCO2 43.9 Assessment and Plan Assessment and Plan (1) Acute respiratory failure with hypoxia: Assessment and Plan: Presented with acute respiratory failure with hypoxia. Pulse ox was as low as 80% upon arrival. CTA is negative for acute pulmonary embolism but findings were suggestive of acute pulmonary edema. Patient started on IV Lasix 40 twice daily. He is a still tachypneic and short of breath likely because of fluid overload. Treat underlying acute systolic heart failure as discussed separately. Wean off oxygen as tolerated. He is currently on Xarelto for stroke prophylaxis (2) Acute systolic heart failure: Assessment and Plan: Echocardiogram revealed systolic dysfunction with ejection fraction of 20%. Severe mitral regurgitation/severe tricuspid regurgitation. According to the patient he has no prior history of congestive heart failure. Start patient on IV Lasix 40 twice daily. Consult cardiology. Monitor intake and output. Daily weights. Obtain old echocardiogram/[facility] records. (3) Atrial fibrillation with rapid ventricular response: Assessment and Plan: Presented with A-fib with RVR. He was on IV Cardizem drip to control heart rate but now that he has new finding of heart failure with reduced ejection fraction, I will discontinue IV Cardizem drip and start him on IV amiodarone. I ordered a one-time bolus of amiodarone 150 mg. Started patient on Toprol 100 mg twice a day. Continue with lisinopril 5 mg once daily. Consider cardiology. Hold off on starting/uptitrating guideline directed medical therapy until he reverts to normal sinus rhythm or his heart rate becomes well-controlled (4) Thickening of wall of gallbladder with pericholecystic fluid: Assessment and Plan: Likely because of fluid overload and translocation of fluid from chest cavity. No right upper quadrant pain. General surgery consulted. Patient on IV Rocephin and Flagyl. (5) Benign essential hypertension: Assessment and Plan: Blood pressure is well-controlled. Continue with lisinopril. Started patient on Toprol. Monitor closely (6) Alcohol abuse: Assessment and Plan: Drinks about 6 cans of beers daily. Discussed alcohol use, risk associated with excessive alcohol use and provided necessary counseling (7) HLD (hyperlipidemia): Assessment and Plan: Continue with Lipitor. Qualifiers: Hyperlipidemia type: unspecified Qualified Code(s): E78.5 - Hyperlipidemia, unspecified
[2024-01-13] MEDS: METOPROLOL SUCCINATE 100 MG TAB.ER.24H PO ×2 (12:00→21:32)
[2024-01-13] MEDS: AMIODARONE IN DEXTROSE,ISO-OSM 150 MG/100 ML PIGGYBACK 600 MG IV (12:01)
--- NOTE | 2024-01-13 12:30 | PM.GSCN ---
History of Present Illness Consult details Narrative: 49-year-old male admitted for acute respiratory failure with bilateral pleural effusions, atrial fibrillation with RVR, ascites. The patient has a significant history of alcohol use. He states for the past 3 weeks he has been short of breath and having increasing difficulties with normal activities due to fatigue and trouble with breathing. He denies any history of biliary colic. He does admit to some reflux when he has red sauce otherwise no issues with other foods. Denies any previous abdominal surgeries. Currently denies any nausea, emesis, fever or chills. Review of Systems ROS Status of ROS 10 or more systems reviewed and unremarkable except as noted in history and below [facility] Medical History (Updated 01/13/24 @ 12:14 by Shaikh Gabriela MD) Major depression ?F32.9 - Major depressive disorder, single episode, unspecified (ICD-10) HLD (hyperlipidemia) ?E78.5 - Hyperlipidemia, unspecified (ICD-10) Chronic post-traumatic stress disorder (PTSD) after combat ?F43.12 - Post-traumatic stress disorder, chronic (ICD-10) ?Z91.82 - Personal history of deployment (ICD-10) Alcohol abuse, episodic ?F10.10 - Alcohol abuse, uncomplicated (ICD-10) Hiatal hernia with GERD ?K44.9 - Diaphragmatic hernia without obstruction or gangrene (ICD-10) ?K21.9 - Gastro-esophageal reflux disease without esophagitis (ICD-10) Benign essential hypertension ?I10 - Essential (primary) hypertension (ICD-10) Paroxysmal atrial fibrillation ?I48.0 - Paroxysmal atrial fibrillation (ICD-10) Alcohol abuse ?F10.10 - Alcohol abuse, uncomplicated (ICD-10) Hyperventilation ?R06.4 - Hyperventilation (ICD-10) Atrial fibrillation ?I48.91 - Unspecified atrial fibrillation (ICD-10) Social History Smoking status: Never smoker Non-prescribed substance use: cannabis (any form) Highest level of school completed/degree received: some college, no degree Little interest or pleasure in doing things: not at all Feeling down, depressed, or hopeless: not at all Do you think of yourself as: straight/heterosexual Gender Identity: male Meds Home Medications and Allergies Home Medications ?Medication ?Instructions ?Recorded ?Confirmed ?Type atorvastatin 10 mg tablet 10 mg PO DAILY 05/30/23 01/13/24 History fluoxetine 20 mg capsule 20 mg PO DAILY 05/30/23 01/13/24 History hydroxyzine HCl 10 mg tablet 10 mg PO .EVERY 12 HOURS 05/30/23 01/13/24 History lisinopril 5 mg tablet 5 mg PO DAILY 05/30/23 01/13/24 History omeprazole 40 mg capsule,delayed 40 mg PO DAILY 05/30/23 01/13/24 History release rivaroxaban 20 mg tablet (Xarelto) 20 mg PO DAILY 05/30/23 01/13/24 History ondansetron 4 mg disintegrating 4 mg PO Q6H PRN nausea and 05/31/23 01/13/24 Rx tablet vomiting #20 tabs benzonatate 100 mg capsule 100 mg PO Q6H PRN cough 01/13/24 01/13/24 History Allergies Allergy/AdvReac Type Severity Reaction Status Date / Time No Known Drug Allergies Allergy Verified 05/30/23 12:20 Exam Narrative Exam Narrative: General: awake, alert, no distress Head: normocephalic, atraumatic Neck: supple, no tracheal deviation Heart: tachycardic Lungs: equal chest rise and fall, non labored breathing however is on supplemental O2 via NC Abdomen: soft, non tender, no rebound or guarding Extremities: no lesions, grossly normal Skin: intact, no cyanosis Psychological: no apparent speech or mood disorder, appropriate for encounter Constitutional Vital Signs, click to edit/add: Last Vital Signs Temp 97.7 F 01/13/24 01:52 Pulse 81 01/13/24 08:00 Resp 24 H 01/13/24 06:30 BP 132/94 H 01/13/24 10:26 Pulse Ox 92 L 01/13/24 10:38 O2 Del Method Nasal Cannula 01/13/24 10:38 O2 Flow Rate 3 01/13/24 10:38 Results Labs Labs: Abnormal lab results 01/12/24 01/12/24 01/13/24 Range/Units 00:00 20:50 05:24 WBC 11.1 H (4.0-11.0) 10^3/uL RBC 4.46 L (4.70-6.10) 10^6/uL Hct 41.6 L (42.0-54.0) % MCV 94.3 H (80.0-94.0) fL Neut % (Auto) 81.2 H (43.0-75.0) % Lymph % (Auto) 9.9 L 18.7 L (20.5-60.0) % Eos % (Auto) 0.4 L (0.9-7.0) % Neut # (Auto) 9.0 H (1.4-6.5) 10^3/uL Lymph # (Auto) 1.1 L (1.2-3.8) 10^3/uL Abs Immat Gran (auto) 0.06 H (0.00-0.03) 10^3/uL PT 13.0 H (9.0-11.6) sec Sodium 133 L (136-145) mmol/L Glucose 116 H (74-106) mg/dL Calcium 8.0 L (8.5-10.1) mg/dL Total Bilirubin 2.1 H 2.0 H (0.2-1.0) mg/dL AST 60 H 52 H (15-37) U/L ALT 73 H 67 H (16-63) U/L NT-Pro-B Natriuret Pep 7337.0 H* (<=900.0) pg/mL Total Protein 6.2 L 5.4 L (6.4-8.2) g/dL Albumin 3.3 L 3.0 L (3.4-5.0) g/dL Urine Protein 30 A (NEG/TRACE) mg/dL Diabetes panel 01/12/24 01/13/24 Range/Units 20:50 05:24 Sodium 133 L 138 (136-145) mmol/L Potassium 3.8 3.6 (3.5-5.1) mmol/L Chloride 98 99 (98-107) mmol/L Carbon Dioxide 28.0 28.1 (21.0-32.0) mmol/L BUN 16.0 14.0 (7.0-18.0) mg/dL Creatinine 1.23 1.03 (0.70-1.30) mg/dL Glucose 116 H 91 (74-106) mg/dL Calcium 8.5 8.0 L (8.5-10.1) mg/dL AST 60 H 52 H (15-37) U/L ALT 73 H 67 H (16-63) U/L Alkaline Phosphatase 78 69 (46-116) U/L Total Protein 6.2 L 5.4 L (6.4-8.2) g/dL Albumin 3.3 L 3.0 L (3.4-5.0) g/dL Thyroid panel 01/12/24 Range/Units 20:50 TSH 2.548 (0.358-3.740) uIU/mL Calcium panel 01/12/24 01/13/24 Range/Units 20:50 05:24 Calcium 8.5 8.0 L (8.5-10.1) mg/dL Albumin 3.3 L 3.0 L (3.4-5.0) g/dL Pituitary panel 01/12/24 01/13/24 Range/Units 20:50 05:24 Sodium 133 L 138 (136-145) mmol/L Potassium 3.8 3.6 (3.5-5.1) mmol/L Chloride 98 99 (98-107) mmol/L Carbon Dioxide 28.0 28.1 (21.0-32.0) mmol/L BUN 16.0 14.0 (7.0-18.0) mg/dL Creatinine 1.23 1.03 (0.70-1.30) mg/dL Glucose 116 H 91 (74-106) mg/dL Calcium 8.5 8.0 L (8.5-10.1) mg/dL TSH 2.548 (0.358-3.740) uIU/mL Adrenal panel 01/12/24 01/13/24 Range/Units 20:50 05:24 Sodium 133 L 138 (136-145) mmol/L Potassium 3.8 3.6 (3.5-5.1) mmol/L Chloride 98 99 (98-107) mmol/L Carbon Dioxide 28.0 28.1 (21.0-32.0) mmol/L BUN 16.0 14.0 (7.0-18.0) mg/dL Creatinine 1.23 1.03 (0.70-1.30) mg/dL Glucose 116 H 91 (74-106) mg/dL Calcium 8.5 8.0 L (8.5-10.1) mg/dL Total Bilirubin 2.1 H 2.0 H (0.2-1.0) mg/dL AST 60 H 52 H (15-37) U/L ALT 73 H 67 H (16-63) U/L Alkaline Phosphatase 78 69 (46-116) U/L Total Protein 6.2 L 5.4 L (6.4-8.2) g/dL Albumin 3.3 L 3.0 L (3.4-5.0) g/dL All other labs normal. Imaging Abdomen CT scan report/results: image reviewed Abdominal ultrasound report/results: report reviewed and image reviewed Assessment and Plan Assessment and Plan (1) Acute respiratory failure with hypoxia: (2) Acute systolic heart failure: (3) Atrial fibrillation with rapid ventricular response: (4) Thickening of wall of gallbladder with pericholecystic fluid: Assessment and Plan: The thickening of the gallbladder is very likely due to the ascites. Given his history of alcohol abuse and the lack of biliary colic or right upper quadrant pain low concerns for acute cholecystitis. Continue management and care per primary team. Contact general surgery as needed (5) Benign essential hypertension: (6) Alcohol abuse: (7) HLD (hyperlipidemia): Qualifiers: Hyperlipidemia type: unspecified Qualified Code(s): E78.5 - Hyperlipidemia, unspecified
[2024-01-13] MEDS: AMIODARONE IN DEXTROSE,ISO-OSM 360 MG/200 ML PLAST..BAG 33.333 MG IV (12:40)
--- NOTE | 2024-01-13 16:38 | P.CACN_ITS ---
<Statement entered by YOSHI DARLING - 01/16/24 07:21> This documentation has been reviewed and approved. History of Present Illness History of Present Illness Consult date: 01/13/24 Requesting physician: Shaikh Gabriela Consult reason: atrial fibrillation Chief complaint: AFIB RBR Narrative: Patient is a 49 y/o M with known PMHx of a.fib/flutter s/p CV'n 11x per patient. He presented to [facility] with c/o not feeling well for the past week or more. He had went to urgent care 1 week ago who tested him for upper respiratory infections, these were negative. He was dx'd with bronchitis and sent home with an abx. He c ontinued to not feel well the days following this with c/o orthopnea, palpitations, dyspnea, nausea, poor appetite which lead to him coming to [facility]. Upon presentation he was found to be in a.fib with RVR. He was started on a cardizem gtt. He had an ECHO which found him to be in acute systolic heart failure with an EF of 20-25%. Cardizem gtt was stopped and switched to IVD amiodarone. Patient seen and examined at bedside. He states his breathing is improving, he is able to lay flat without difficultly and his SOB at rest is better. Denies CP, palpitations, dizziness/LH, leg swelling. Review of Systems ROS Status of ROS 10 or more systems reviewed and unremark able except as noted in history and below Constitutional Reports: fatigue and malaise Cardiovascular Reports: palpitations, shortness of breath with exertion and s hortness of breath when lying down Respiratory Reports: cough [facility] Medical History (Updated 01/13/24 @ 12:14 by Shaikh Gabriela MD) Major depression ?F32.9 - Major depressive disorder, single episode, unspecified (ICD-10) HLD (hyperlipidemia) ?E78.5 - Hyperlipidemia, unspecified (ICD-10) Chronic post-traumatic stress disorder (PTSD) after combat ?F43.12 - Post-traumatic stress disorder, chronic (ICD-10) ?Z91.82 - Personal history of deployment (ICD-10) Alcohol abuse, episodic ?F10.10 - Alcohol abuse, uncomplicated (ICD-10) Hiatal hernia with GERD ?K44.9 - Diaphragmatic hernia without obstruction or gangrene (ICD-10) ?K21.9 - Gastro-esophageal reflux disease without esophagitis (ICD-10) Benign essential hypertension ?I10 - Essential (primary) hypertension (ICD-10) Paroxysmal atrial fibrillation ?I48.0 - Paroxysmal atrial fibrillation (ICD-10) Alcohol abuse ?F10.10 - Alcohol abuse, uncomplicated (ICD-10) Hyperventilation ?R06.4 - Hyperventilation (ICD-10) Atrial fibrillation ?I48.91 - Unspecified atrial fibrillation (ICD-10) Social History Smoking status: Never smoker Non-prescribed substance use: cannabis (any form) Highest level of school completed/degree received: some college, no degree Little interest or pleasure in doing things: not at all Feeling down, depressed, or hopeless: not at all Do you think of yourself as: straight/heterosexual Gender Identity: male Meds Home Medications and Allergies Home Medications ?Medication ?Instructions ?Recorded ?Confirmed ?Type atorvastatin 10 mg tablet 10 mg PO DAILY 05/30/23 01/13/24 History fluoxetine 20 mg capsule 20 mg PO DAILY 05/30/23 01/13/24 History hydroxyzine HCl 10 mg tablet 10 mg PO .EVERY 12 HOURS 05/30/23 01/13/24 History lisinopril 5 mg tablet 5 mg PO DAILY 05/30/23 01/13/24 History omeprazole 40 mg capsule,delayed 40 mg PO DAILY 05/30/23 01/13/24 History release rivaroxaban 20 mg tablet (Xarelto) 20 mg PO DAILY 05/30/23 01/13/24 History ondansetron 4 mg disintegrating 4 mg PO Q6H PRN nausea and 05/31/23 01/13/24 Rx tablet vomiting #20 tabs benzonatate 100 mg capsule 100 mg PO Q6H PRN cough 01/13/24 01/13/24 History Allergies Allergy/AdvReac Type Severity Reaction Status Date / Time No Known Drug Allergies Allergy Verified 05/30/23 12:20 Exam Constitutional Vital Signs, click to edit/add: Last Vital Signs Temp 98.4 F 01/13/24 12:00 Pulse 80 01/13/24 16:00 Resp 22 H 01/13/24 13:31 BP 116/93 H 01/13/24 13:31 Pulse Ox 90 L 01/13/24 16:00 O2 Del Method Nasal Cannula 01/13/24 12:00 O2 Flow Rate 3 01/13/24 12:00 Results Labs and Meds Lab results: Cardiac Enzymes 01/12/24 01/13/24 Range/Units 20:50 05:24 AST 60 H 52 H (15-37) U/L Coagulation 01/12/24 Range/Units 20:50 PT 13.0 H (9.0-11.6) sec CBC 01/12/24 01/13/24 Range/Units 20:50 05:24 WBC 11.1 H 7.2 (4.0-11.0) 10^3/uL RBC 4.75 4.46 L (4.70-6.10) 10^6/uL Hgb 14.7 14.0 (14.0-18.0) g/dL Hct 44.8 41.6 L (42.0-54.0) % Plt Count 313 213 (150-450) 10^3/uL Neut # (Auto) 9.0 H 5.1 (1.4-6.5) 10^3/uL Lymph # (Auto) 1.1 L 1.4 (1.2-3.8) 10^3/uL [place] # (Auto) 0.8 0.6 (0.3-0.8) 10^3/uL Eos # (Auto) 0.1 0.1 (0.0-0.7) 10^3/uL Baso # (Auto) 0.1 0.1 (0.0-0.1) 10^3/uL Comprehensive Metabolic Panel 01/12/24 01/13/24 Range/Units 20:50 05:24 Sodium 133 L 138 (136-145) mmol/L Potassium 3.8 3.6 (3.5-5.1) mmol/L Chloride 98 99 (98-107) mmol/L Carbon Dioxide 28.0 28.1 (21.0-32.0) mmol/L BUN 16.0 14.0 (7.0-18.0) mg/dL Creatinine 1.23 1.03 (0.70-1.30) mg/dL Glucose 116 H 91 (74-106) mg/dL Calcium 8.5 8.0 L (8.5-10.1) mg/dL AST 60 H 52 H (15-37) U/L ALT 73 H 67 H (16-63) U/L Alkaline Phosphatase 78 69 (46-116) U/L Total Protein 6.2 L 5.4 L (6.4-8.2) g/dL Albumin 3.3 L 3.0 L (3.4-5.0) g/dL Intake and Output 01/13/24 01/13/24 01/13/24 07:59 15:59 23:59 Intake Total 159.5 / 1178.5 250 / 250 Output Total 3450 / 4350 Balance -3290.5 / -3171.5 250 / 250 Intake: IV 159.5 / 1178.5 250 / 250 Amiodarone in Dextrose,Iso-Osm 100 / 100 150 mg In 100 ml @ 600 mls/hr IV ONCE ONE Rx#:[id number] Ceftriaxone 1,000 mg In 0.9 % 50 / 50 Sodium Chloride 50 ml @ 100 mls /hr IV Q24H [facility] Rx#:[id number] Metronidazole/Sodium Chloride 100 / 100 500 mg In 100 ml @ 100 mls/hr IV Q8H [facility] Rx#:[id number] dilTIAZem HCL 125 mg In 0.9 % 159.5 / 178.5 Sodium Chloride 100 ml @ 10 MG/ HR 10 mls/hr IV TITR [facility] Rx#: [id number] Output: Urine 3450 / 4350 Other: Weight 88.9 kg 90 kg Patient Weight 01/14/24 07:59 Weight 90 kg Imaging and Cardiology Echo: report reviewed Assessment and Plan Assessment and Plan (1) Acute respiratory failure with hypoxia: (2) Acute systolic heart failure: (3) Atrial fibrillation with rapid ventricular response: (4) Thickening of wall of gallbladder with pericholecystic fluid: (5) Benign essential hypertension: (6) Alcohol abuse: (7) HLD (hyperlipidemia): Qualifiers: Hyperlipidemia type: unspecified Qualified Code(s): E78.5 - Hyperlipidemia, unspecified Plan #Acute systolic heart failure -Newly reduced EF of 20-25%, last ECHO 2021 showed preserved EF -Discussed with patient, need to rule out ischemic etiology. He reports having a heart cath 12-13 years ago, results not available. Recommend coronary angiogram which would require him to transfer to a higher level of care. -He is currently on IVP lasix 40mg BID. Given findings on his CT scan yesterday showing moderate right and small left effusion, pulmonary edema, mild ascites, recommend continuing diuresis for at least 2-3 days. -GDMT: continue lisinopril 5mg daily and Toprol 100mg daily - uptitrate as tolerated. Recommend SGLT2i prior to discharge. #A.fib with RVR -Patient reports hx of 11 cardioversions and a previous ablation. He is unsure if this was an a.fib or flutter ablation. -He states he has been faithfully taking his xarelto 20mg daily. -Currently on IVD amiodarone which is helping control his rate - recommend to continue this. Closely monitor liver function. -He reports hx of taking tikosyn and developed side effects. He was also on multaq in the past but he is unsure why he currently isn't on it. -Recommend proceeding with cardioversion which would require transfer to a higher level of care. 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 Discussed above with patient/significant other, primary RN, and hospitalist. He is agreeable to transfer to higher level of care for further work-up. Patient states he would prefer to be transferred to [place] and in that case hospitalist will need to set up for transportation. Nursing staff stated they would make Dr. Ochoa aware. Thank you for the consult. Please let us know if any further questions or concerns. Raine Jose APRN-[employer] [facility]
[2024-01-13] MEDS: AMIODARONE IN DEXTROSE,ISO-OSM 360 MG/200 ML PLAST..BAG 16.667 MG IV (17:56)
[2024-01-14] VITALS (98 sets, daily range): BP systolic 106–138; BP diastolic 56–107; PULSE 79–111; TEMP 36.4–36.6; O2SAT 85–100
[2024-01-14] MEDS: METRONIDAZOLE/SODIUM CHLORIDE 500 MG/100 ML PREMIX 100 MG IV ×3 (01:19→17:23)
[2024-01-14] MEDS: AMIODARONE IN DEXTROSE,ISO-OSM 360 MG/200 ML PLAST..BAG 16.667 MG IV (05:26)
[2024-01-14 05:42] LABS: Basophils Absolute Auto 0.1 10^3/uL (0.0-0.1); Basophils Percent Auto 0.9 % (0.2-2.0); Eosinophils Absolute Auto 0.2 10^3/uL (0.0-0.7); Eosinophils Percent Auto 2.2 % (0.9-7.0); Hematocrit 44.5 % (42.0-54.0); Hemoglobin 14.6 g/dL (14.0-18.0); Immature Granulocytes Abs Auto 0.05 10^3/uL (0.00-0.03); Immature Granulocytes Pct Auto 0.6 % (0.0-0.5); Lymphocytes Absolute Auto 1.5 10^3/uL (1.2-3.8); Lymphocytes Percent Auto 18.3 % (20.5-60.0); Mean Corpuscular HGB Conc 32.8 g/dL (29.9-35.2); Mean Corpuscular Hemoglobin 30.9 pg (25.9-34.0); Mean Corpuscular Volume 94.1 fL (80.0-94.0); Monocytes Absolute Auto 0.8 10^3/uL (0.3-0.8); Monocytes Percent Auto 10.3 % (1.7-12.0); Neutrophils Absolute Auto 5.6 10^3/uL (1.4-6.5); Neutrophils Percent Auto 67.7 % (43.0-75.0); Platelet Count 262 10^3/uL (150-450); Red Blood Count 4.73 10^6/uL (4.70-6.10); Red Cell Distribution Width 12.2 % (11.0-15.0); White Blood Count 8.2 10^3/uL (4.0-11.0)
[2024-01-14 06:00] LABS: Alanine Aminotransferase 64 U/L (16-63); Albumin Level 2.8 g/dL (3.4-5.0); Alkaline Phosphatase 69 U/L (46-116); Anion Gap 5.8; Aspartate Amino Transferase 38 U/L (15-37); BUN Creatinine Ratio 15.4; Bilirubin Total 0.7 mg/dL (0.2-1.0); Calcium 8.8 mg/dL (8.5-10.1); Carbon Dioxide 33.7 mmol/L (21.0-32.0); Chloride 99 mmol/L (98-107); Estimated GFR (African America >60 (>=60 mL/min/1.73m^2); Estimated GFR (Non-African Ame 58 (>=60 mL/min/1.73m^2); Globulin 2.9 g/dL; Glucose 125 mg/dL (74-106); Potassium 3.5 mmol/L (3.5-5.1); Sodium 135 mmol/L (136-145); Total Protein 5.7 g/dL (6.4-8.2)
[2024-01-14] MEDS: FUROSEMIDE 40 MG/4 ML VIAL IVP (08:52)
[2024-01-14] MEDS: HYDROXYZINE HCL 10 MG TABLET PO (08:53)
[2024-01-14] MEDS: FLUOXETINE HCL 20 MG CAPSULE PO (08:53)
[2024-01-14] MEDS: METOPROLOL SUCCINATE 100 MG TAB.ER.24H PO (08:53)
[2024-01-14] MEDS: RIVAROXABAN 10 MG TABLET 20 MG PO (08:53)
[2024-01-14] MEDS: OMEPRAZOLE 40 MG CAPSULE.DR PO (08:53)
[2024-01-14] MEDS: LISINOPRIL 5 MG TABLET PO (08:53)
[2024-01-14] MEDS: CEFTRIAXONE 1,000 MG in 0.9 % SODIUM CHLORIDE 50 ML 100 MG IV (08:55)
--- NOTE | 2024-01-14 10:11 | CM.NOTE ---
Rounds made with Dr. Ochoa, discussed with pt transfer to higher level of care. Pt wishes are to go to [facility]. Pt continues on Amiodarone drip that will be completed this afternoon and will private branch exchange operator to P.O Amiodarone. Pt's HR is at controlled rate this AM, nurse attempting to wean off oxygen.
--- NOTE | 2024-01-14 10:12 | PM.IMPN1 ---
Progress Note: A&P Assessment and Plan (1) Acute respiratory failure with hypoxia: Assessment and Plan: Doing well. Wean off oxygen as tolerated. Continue with IV Lasix 40 twice daily. (2) Acute systolic heart failure: Assessment and Plan: New onset acute systolic heart failure with ejection fraction of 20 to 25%. He had a normal echo and Lexiscan in 2021. Patient was seen by cardiology who recommended transfer to a tertiary care hospital for left heart catheterization. Patient personally prefers to go to a [facility]. Transfer request initiated. Continue with IV Lasix 40 twice daily. (3) Atrial fibrillation with rapid ventricular response: Assessment and Plan: Rate well-controlled on amiodarone drip. Continue with Toprol 100 twice a day Once IV amiodarone bolus finishes, we will initiate oral amiodarone for the patient. Patient is on Xarelto for anticoagulation (4) Thickening of wall of gallbladder with pericholecystic fluid: Assessment and Plan: Likely due to volume overload. No right upper quadrant pain. Will discontinue IV antrum. (5) Benign essential hypertension: Assessment and Plan: Blood pressure is well-controlled. He is on Toprol, Lasix and lisinopril. (6) Alcohol abuse: Assessment and Plan: No signs and symptoms of alcohol withdrawal. Discussed excessive alcohol use and associated risk of heart failure and A-fib. (7) HLD (hyperlipidemia): Assessment and Plan: Continue with statin. Qualifiers: Hyperlipidemia type: unspecified Qualified Code(s): E78.5 - Hyperlipidemia, unspecified Internal Medicine - PN: Subj Subjective Interval history: Seen and examined. Feeling better. Rate is better controlled now. On IV amiodarone. Exam Constitutional Vital Signs, click to edit/add: Last Vital Signs Temp 97.8 F 01/14/24 03:57 Pulse 96 H 01/14/24 05:55 Resp 18 01/14/24 05:00 BP 136/107 H 01/14/24 08:52 Pulse Ox 94 L 01/14/24 05:00 O2 Del Method Nasal Cannula 01/14/24 05:00 O2 Flow Rate 3 01/14/24 05:00 Common normals: no apparent distress, average body habitus and oriented x3 General appearance: in distress respiratory Respiratory Common normals: no use of accessory muscles Effort & inspection: able to speak in complete sentences Auscultation: rales bilateral Cardio Common normals: regular rate, S1 normal heart sound and S2 normal heart sound Jugular venous distention: JVD to the level of the angle of the jaw Rhythm: abnormal rhythm GI Common normals: Normal to inspection, nondistended, normoactive bowel sounds present, soft to palpation, non-tender and no hepatosplenomegaly Extremity Common normals: normal to inspection and full ROM Neuro Common normals: oriented x3, moves all extremities, no focal motor deficits, no sensory deficits noted and gait normal Psych Common normals: mental status grossly normal, thought process normal, denies homicidal ideation and denies suicidal ideation Internal Medicine - PN: Obj Da Labs Labs: Laboratory Results - last 24 hr 01/14/24 05:26 WBC 8.2 RBC 4.73 Hgb 14.6 Hct 44.5 MCV 94.1 H MCH 30.9 MCHC 32.8 RDW 12.2 Plt Count 262 MPV 12.0 Neut % (Auto) 67.7 Lymph % (Auto) 18.3 L [place] % (Auto) 10.3 Eos % (Auto) 2.2 Baso % (Auto) 0.9 Neut # (Auto) 5.6 Lymph # (Auto) 1.5 [place] # (Auto) 0.8 Eos # (Auto) 0.2 Baso # (Auto) 0.1 Abs Immat Gran (auto) 0.05 H Imm/Tot Granulo (auto) 0.6 H Sodium 135 L Potassium 3.5 Chloride 99 Carbon Dioxide 33.7 H Anion Gap 5.8 BUN 20.0 H Creatinine 1.30 Est GFR ( Amer) >60 Est GFR (Non-Af Amer) 58 L BUN/Creatinine Ratio 15.4 Glucose 125 H Calcium 8.8 Total Bilirubin 0.7 AST 38 H ALT 64 H Alkaline Phosphatase 69 Total Protein 5.7 L Albumin 2.8 L Globulin 2.9 Albumin/Globulin Ratio 1.0
--- NOTE | 2024-01-14 12:11 | CM.NOTE ---
Adamaris called from [place] for updates. Explained pt's need for transport for higher level of care. Adamaris will be pt's caseworker to assist to facilitate transfer. Records sent by Laura Ventura (ICU private secretary) to [phone]. Adamaris will call back if cardiology is able to accept pt in transfer after receiving records. Adamaris contact number [phone] ext [phone]
--- NOTE | 2024-01-14 15:26 | CM.NOTE ---
Called Adamaris at [facility] to update that pt has not been transferred to [facility], awaiting call back from Hospitalist. Adamaris will call back tomorrow for update.
[2024-01-14] MEDS: ACETAMINOPHEN 325 MG TABLET 650 MG PO (17:30)
--- NOTE | 2024-01-15 14:57 | PM.DS1 ---
DS: Providers Provider Date of admission: 01/13/24 01:43 Primary care physician: Non-Staff Physician, Admitting clinician: Shaikh Gabriela Attending physician on admission: Shaikh Gabriela Consults: 01/13/24 06:56 Consult to General Surgeon Routine Consulting Provider: Pradip Moran Reason for consultation: Cholecystitis 01/13/24 11:04 Consult to Cardiology Routine Reason for consultation: Acute systolic HF, Afib with RVR Attending physician on discharge: Shaikh Gabriela Discharging clinician: Shaikh Gabriela Anticipated date of discharge: 01/15/24 DS: Diagnosis Discharge Diagnosis (1) Acute respiratory failure with hypoxia: (2) Acute systolic heart failure: (3) Atrial fibrillation with rapid ventricular response: (4) Thickening of wall of gallbladder with pericholecystic fluid: (5) Benign essential hypertension: (6) Alcohol abuse: (7) HLD (hyperlipidemia): Qualifiers: Hyperlipidemia type: unspecified Qualified Code(s): E78.5 - Hyperlipidemia, unspecified DS: Summary Hospital Course Hospital Course: 52-year-old male with past medical history of atrial fibrillation diagnosed in 2010 presented to ER for feeling tired and decreased energy for 3 weeks. He also felt heart palpitations along with worsening shortness of breath. In ER, patient was found to have A-fib with RVR with heart rate as high as 190. ED provider ruled out PE via CTA chest that also demonstrated bilateral pleural effusion and pulmonary edema. Patient was initially treated with IV Cardizem and IV Lasix with gradual improvement in his HR and respiratory/volume status. He had an ECHO to assess cardiac structure that revealed acute systolic dysfunction, global hypokinesis. Due this finding, he was switched IV Amiodarone Bolus, and started on Toprol. He was seen by Cardiology and recommended to have LHC due to acute drop in his LVEF. At the time of discharge, he was transitioned to RA, his Amiodarone IV had finished and was started on PO amiodarone. We initially attempted to transfer him [facility] in [place] but due to bed availability, [facility] and [facility]. Status at Discharge Functional status at discharge: independent ambulation Overall status at discharge: patient is progressing back to baseline Time Spent with Patient Time attestation: Total time spent providing and/or coordinating discharge services: Exam Constitutional Vital Signs, click to edit/add: Last Vital Signs Temp 97.6 F 01/14/24 16:00 Pulse 94 H 01/14/24 21:10 Resp 23 H 01/14/24 21:10 BP 118/94 H 01/14/24 20:53 Pulse Ox 97 01/14/24 18:10 O2 Del Method Nasal Cannula 01/14/24 12:13 O2 Flow Rate 2 01/14/24 12:13 Discharge Plan Discharge Disposition: [facility] Discharge Date/Time: 01/14/24 19:30
== END 2024-01-14 19:30 | disposition short-term general hospital (02) | DRG 291 ==
LOC: ER 01-13 01:13 → ICU 01-13 01:46
PROVIDERS: Physician Assistant; Registered Nurse; Admitting Provider Internal Medicine; Emergency Provider Internal Medicine; Visit Provider Internal Medicine
DX: I11.0 Hypertensive heart disease with heart failure (principal); I50.21 Acute systolic (congestive) heart failure; J96.01 Acute respiratory failure with hypoxia; I48.0 Paroxysmal atrial fibrillation; I08.1 Rheumatic disorders of both mitral and tricuspid valves; E78.5 Hyperlipidemia, unspecified; K82.8 Other specified diseases of gallbladder; F10.10 Alcohol abuse, uncomplicated; Z79.01 Long term (current) use of anticoagulants; Z79.899 Other long term (current) drug therapy
CPT/HCPCS: 36415; 71275; 74177; 76705; 80053; 80320; 81001; 82800; 83605; 83880; 84443; 84484; 85025; 85610; 87040; 93005; 93306; 94761; 96365; 96366; 96375; 96376; 99285; J0283; J0696; J1836; J1940; Q9967